=== PATIENT | male | born 1955 | race Caucasian/White ===

== ENCOUNTER 2016-12-14 13:03 | Inpatient (IN) ==
[2016-12-14 13:53] LABS: Bilirubin,Urine Small (Negative); Blood,Urine Negative (Negative); Clarity,Urine Clear (Clear); Color,Urine Dark Yellow (Yellow); Glucose,Urine (UA) Normal (Normal); Ketones,Urine Trace mg/dL (Negative); Leukocyte Esterase,Urine Negative (Negative); Nitrite,Urine Negative (Negative); PH,Urine 6.5 pH Units (5.0-8.0); Protein,Urine 100 mg/dL (Neg-Trace); Urobilinogen,Urine Normal (Normal)
[2016-12-14 13:55] LABS: Hyaline Casts,Urine None Seen per lpf (None-Few); RBC,Urine 0-3 per hpf (0-3); WBC,Urine 0-3 per hpf (0-3)
[2016-12-14 14:06] LABS: Basophils % 0.5 %; Eosinophils # 0.1 K/mcL (0.0-0.6); Eosinophils % 1.5 %; Hematocrit 42.6 % (37.5-50.1); Hemoglobin 12.8 g/dL (12.9-16.9); Immature Granulocytes % 0.5 % (0-4); Lymphocytes # 0.8 K/mcL (0.6-4.6); Lymphocytes % 11.8 %; Mean Corpuscular Hemoglobin 23.8 pg (28.0-33.3); Mean Corpuscular Volume 79.3 fL (83.0-100.0); Mean Platelet Volume 9.9 fL (9.4-12.4); Monocytes # 0.4 K/mcL (0.0-1.3); Monocytes % 6.3 %; Neutrophils # 5.2 K/mcL (1.6-8.9); Platelet Count 171 K/mcL (140-400); Red Blood Count 5.37 M/mcL (4.19-5.50); Red Cell Distribution Width 13.8 % (11.5-14.5); Segmented Neutrophils % 79.4 %
[2016-12-14 14:07] LABS: Squamous Epithelial Cell,Urine Few per lpf (None-Few)
[2016-12-14 14:08] LABS: Bacteria,Urine Few per hpf (None-Few); Mucus,Urine Moderate (Few)
[2016-12-14 14:24] LABS: Alanine Aminotransferase 13 Units/L (0-55); Albumin 3.6 g/dL (3.5-5.0); Albumin/Globulin Ratio 0.9 (1.1-2.2); Alkaline Phosphatase 120 Units/L (38-126); Aspartate Amino Transferase 40 Units/L (5-34); BUN/Creatinine Ratio 15 (6-26); Bilirubin,Direct 0.3 mg/dL (0.0-0.5); Bilirubin,Indirect 0.4 mg/dL (0.0-1.2); Bilirubin,Total 0.7 mg/dL (0.2-1.2); Blood Urea Nitrogen 14 mg/dL (8-26); Calcium 9.4 mg/dL (8.6-10.8); Carbon Dioxide 26 mEq/L (19-29); Chloride 102 mEq/L (98-109); Globulin 3.8 g/dL (2.4-3.5); Glucose 106 mg/dL (70-99); Lipase 17 Units/L (8-78); Osmolality,Calculated 287 (280-300); Sodium 138 mEq/L (136-145); Total Protein 7.4 g/dL (6.0-8.3); eGFR For African Americans > 60 (> 60); eGFR For Non-African Americans > 60 (> 60)
[2016-12-14 14:25] LABS: Potassium 4.1 mEq/L (3.5-4.5)
[2016-12-14] MEDS ORDERED: *HR* HYDROmorphone (PF) 1 MG/ML SYRINGE IVP ONE (14:54)
--- NOTE | 2016-12-14 15:44 | Emergency Department Note ---
Disposition Clinical Impression: Liver metastasis, Lung nodules Abdominal pain Qualifiers: Abdominal location: generalized Qualified Code(s): R10.84 - Generalized abdominal pain Disposition: Admitted As Inpatient Condition: Good Time of Disposition: 18:51 Abdominal Pain HPI - General Chief Complaint: ED Abdominal Pain Stated Complaint: ABD Pain [id number] Time Seen by Provider: 12/14/16 14:03 Source: patient Nursing Notes Reviewed: Yes Vital Signs Reviewed: Yes - History of Present Illness HPI Narrative: 3 1/2 week history of abdominal pain. Increasing abdominal distention. 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 9 years ago. Does have reported nausea no vomiting. Swelling to bilateral lower extremities for the past several weeks. Pain Scale: 5 - Related Data Home Medications Medication Instructions Recorded Confirmed Gabapentin [Neurontin] 600 - 1,200 mg PO TID 08/10/16 12/14/16 Lisinopril [Zestril] 5 mg PO DAILY 08/10/16 12/14/16 Promethazine [Phenergan] 25 mg PO TID PRN 08/10/16 12/14/16 Ferrous Gluconate 324 mg PO DAILY 12/14/16 12/14/16 Oxycodone HCl [Roxicodone 30 MG 30 - 60 mg PO Q4H 12/14/16 12/14/16 Immed Release] Polyethylene Glycol 3350 [MiraLAX] 17 gm PO QPM 12/14/16 12/14/16 Allergies Allergy/AdvReac Type Severity Reaction Status Date / Time morphine Allergy Rash Verified 12/14/16 13:34 All systems ED: reviewed and negative except as stated. Constitutional: Denies: fever, chills ENT ED: Denies: congestion Cardiovascular: Denies: chest pain, palpitations, syncope Respiratory: Denies: cough, dyspnea Gastrointestinal: Reports: abdominal pain, nausea. Denies: vomiting, diarrhea, hematemesis, melena, hematochezia Genitourinary: Denies: urgency, dysuria, frequency Musculoskeletal: Denies: back pain, neck pain Integumentary: Denies: rash, abrasion Neurological: Denies: headache, weakness, numbness Abdominal Pain PMH - Past Medical History Medical history: Reports: hypertension, other Male Surgical History: Reports: no surgical history Psychiatric history: Reports: no psych history - Social History Smoking status: Never smoker Alcohol use: Reports: none Drug use: Reports: none Physical Exam - General Limitations: no limitations General appearance: alert, in no apparent distress - Head Head exam: atraumatic, normocephalic, normal inspection - Eye Eye exam: Present: normal appearance, PERRL, EOMI. Absent: scleral icterus - ENT ENT exam: normal exam, normal oropharynx, mucous membranes moist - Neck Neck exam: Present: normal inspection, full ROM, trachea midline - Chest Chest inspection: Present: normal inspection, symmetric chest wall rise - Respiratory Respiratory exam: Present: normal lung sounds bilaterally. Absent: respiratory distress, accessory muscle use - Cardiovascular Cardiovascular exam: Present: regular rate, normal rhythm, normal heart sounds - Abdominal Exam Abdominal exam: Present: soft, tenderness (Diffusely), distention (Rounded), guarding (Throughout whole exam), rigidity (Mino not scaphoid). Absent: rebound , Mcintyre's sign, Rovsing's sign, tenderness at McBurney's Point - Extremities Exam Extremities exam: Present: pedal edema (Bilaterally pitting.). Absent: normal inspection, full ROM, tenderness, normal capillary refill - Back Exam Back exam: Present: normal inspection, full ROM. Absent: tenderness - Neurological Exam Neurological exam: Present: alert, oriented X3 - Psychiatric Psychiatric exam: Present: normal affect, normal mood - Skin Skin exam: Present: warm, dry, intact, normal color. Absent: rash, cyanosis, diaphoresis, erythema Course Course Narrative: Male patient presenting to the emergency department complaining of a 3-1/2 week history of abdominal pain. Also complaining of distention to his abdomen. This happened previously 9 years ago when he was diagnosed with osteomyelitis. Patient complains of nausea and vomiting associated with this abdominal pain. Denies any chest pain or shortness of breath. Patient's lung sounds are clear heart tones are normal. He does have pitting edema to his bilateral lower extremities. He is well-appearing and nonjaundiced at this time. His abdomen is mildly distended and rounded. It is not scaphoid but it is taut. He is guarding throughout the whole exam. We will get basic lab workup on patient and scanned patient's abdomen. - Reevaluation(s) Reevaluation #1: Patient reassessed and made aware of the possible cancer in his liver and lungs. He has possible metastasis to his liver as well as several lung nodules. He expresses understanding. I discussed with him admission to the hospital for further evaluation of this as well as a CTA of his chest to better assess the lung nodules. He is agreeable with this. We will admit patient to the hospital for further evaluation. Heme/ onc is following. Time: 16:57 - Consultations Consultation #1: Jenna nurse practitioner except the patient in stable condition. She has been made aware that the CTA patient's chest is still pending. Time: 16:56 Consultation #2: I discussed the patient with Heme/ onc. They suggested admission to the hospital for pain control and they will see him while he is here in the hospital. I feel this is reasonable Vital Signs Temperature 98.8 F 12/14/16 13:36 Pulse Rate 88 12/14/16 13:36 Respiratory Rate 18 12/14/16 13:36 Blood Pressure 169/90 12/14/16 13:36 O2 Sat by Pulse Oximetry 98 12/14/16 13:36 Temperature 98.2 F 12/14/16 18:10 Pulse Rate 96 12/14/16 16:39 Respiratory Rate 18 12/14/16 18:10 Blood Pressure 136/80 12/14/16 18:10 O2 Sat by Pulse Oximetry 96 12/14/16 16:39 Oxygen Delivery Oxygen Delivery Room Air Abdominal Pain - Medical Records Medical records reviewed: Yes I reviewed the patient's medical records. - Lab Data Lab results reviewed: Yes I reviewed the patient's lab results. Result diagrams: 12/14/16 14:00 12/14/16 14:00 Lab Results 12/14/16 12/14/16 12/14/16 Range/Units 13:20 14:00 14:00 WBC 6.5 (4.3-11.1) K/mcL RBC 5.37 (4.19-5.50) M/mcL Hgb 12.8 L (12.9-16.9) g/dL Hct 42.6 (37.5-50.1) % MCV 79.3 L (83.0-100.0) fL MCH 23.8 L (28.0-33.3) pg MCHC 30.0 L (31.6-35.5) g/dL RDW 13.8 (11.5-14.5) % Plt Count 171 (140-400) K/mcL MPV 9.9 (9.4-12.4) fL Immature Gran % 0.5 (0-4) % Seg Neutrophils % 79.4 % Lymphocytes % 11.8 % Monocytes % 6.3 % Eosinophils % 1.5 % Basophils % 0.5 % Neutrophils # 5.2 (1.6-8.9) K/mcL Lymphocytes # 0.8 (0.6-4.6) K/mcL Monocytes # 0.4 (0.0-1.3) K/mcL Eosinophils # 0.1 (0.0-0.6) K/mcL Basophils # 0.0 (0.0-0.2) K/mcL Sodium 138 (136-145) mEq/L Potassium 4.1 (3.5-4.5) mEq/L Chloride 102 (98-109) mEq/L Carbon Dioxide 26 (19-29) mEq/L BUN 14 (8-26) mg/dL Creatinine 0.92 (0.72-1.25) mg/dL Est GFR ( Amer) > 60 (> 60) Est GFR (Non-Af Amer) > 60 (> 60) BUN/Creatinine Ratio 15 (6-26) Glucose 106 H (70-99) mg/dL Calculated Osmolality 287 (280-300) Calcium 9.4 (8.6-10.8) mg/dL Total Bilirubin 0.7 (0.2-1.2) mg/dL Direct Bilirubin 0.3 (0.0-0.5) mg/dL Indirect Bilirubin 0.4 (0.0-1.2) mg/dL AST 40 H (5-34) Units/L ALT 13 (0-55) Units/L Alkaline Phosphatase 120 (38-126) Units/L Troponin I (0-0.03) ng/mL B-Natriuretic Peptide (0-100) pg/mL Serum Total Protein 7.4 (6.0-8.3) g/dL Albumin 3.6 (3.5-5.0) g/dL Globulin 3.8 H (2.4-3.5) g/dL Albumin/Globulin Ratio 0.9 L (1.1-2.2) Lipase 17 (8-78) Units/L Urine Color Dark Yellow (Yellow) Urine Clarity Clear (Clear) Urine pH 6.5 (5.0-8.0) pH Units Ur Specific [place] 1.030 H (1.010-1.025) Urine Protein 100 H (Neg-Trace) mg/dL Urine Glucose (UA) Normal (Normal) mg/dL Urine Ketones Trace H (Negative) mg/dL Urine Blood Negative (Negative) Urine Nitrite Negative (Negative) Urine Bilirubin Small H (Negative) Urine Urobilinogen Normal (Normal) mg/dL Ur Leukocyte Esterase Negative (Negative) Urine Microscopic RBC 0-3 (0-3) per hpf Urine Microscopic WBC 0-3 (0-3) per hpf Ur Squamous Epith Cells Few (None-Few) per lpf Urine Bacteria Few (None-Few) per hpf Hyaline Casts None Seen (None-Few) per lpf Urine Mucus Moderate H (Few) Ur Culture Indicated? NO (NO) 12/14/16 12/14/16 Range/Units 14:00 14:00 WBC (4.3-11.1) K/mcL RBC (4.19-5.50) M/mcL Hgb (12.9-16.9) g/dL Hct (37.5-50.1) % MCV (83.0-100.0) fL MCH (28.0-33.3) pg MCHC (31.6-35.5) g/dL RDW (11.5-14.5) % Plt Count (140-400) K/mcL MPV (9.4-12.4) fL Immature Gran % (0-4) % Seg Neutrophils % % Lymphocytes % % Monocytes % % Eosinophils % % Basophils % % Neutrophils # (1.6-8.9) K/mcL Lymphocytes # (0.6-4.6) K/mcL Monocytes # (0.0-1.3) K/mcL Eosinophils # (0.0-0.6) K/mcL Basophils # (0.0-0.2) K/mcL Sodium (136-145) mEq/L Potassium (3.5-4.5) mEq/L Chloride (98-109) mEq/L Carbon Dioxide (19-29) mEq/L BUN (8-26) mg/dL Creatinine (0.72-1.25) mg/dL Est GFR ( Amer) (> 60) Est GFR (Non-Af Amer) (> 60) BUN/Creatinine Ratio (6-26) Glucose (70-99) mg/dL Calculated Osmolality (280-300) Calcium (8.6-10.8) mg/dL Total Bilirubin (0.2-1.2) mg/dL Direct Bilirubin (0.0-0.5) mg/dL Indirect Bilirubin (0.0-1.2) mg/dL AST (5-34) Units/L ALT (0-55) Units/L Alkaline Phosphatase (38-126) Units/L Troponin I 0.00 (0-0.03) ng/mL B-Natriuretic Peptide 72 (0-100) pg/mL Serum Total Protein (6.0-8.3) g/dL Albumin (3.5-5.0) g/dL Globulin (2.4-3.5) g/dL Albumin/Globulin Ratio (1.1-2.2) Lipase (8-78) Units/L Urine Color (Yellow) Urine Clarity (Clear) Urine pH (5.0-8.0) pH Units Ur Specific [place] (1.010-1.025) Urine Protein (Neg-Trace) mg/dL Urine Glucose (UA) (Normal) mg/dL Urine Ketones (Negative) mg/dL Urine Blood (Negative) Urine Nitrite (Negative) Urine Bilirubin (Negative) Urine Urobilinogen (Normal) mg/dL Ur Leukocyte Esterase (Negative) Urine Microscopic RBC (0-3) per hpf Urine Microscopic WBC (0-3) per hpf Ur Squamous Epith Cells (None-Few) per lpf Urine Bacteria (None-Few) per hpf Hyaline Casts (None-Few) per lpf Urine Mucus (Few) Ur Culture Indicated? (NO) - Radiology Data Radiology results reviewed: Yes I reviewed the patient's radiology results. Abdomen/Pelvis CT 12/14/16 14:50 IMPRESSION: 1. Bilateral hepatic mass lesions which are incompletely evaluated on this nonenhanced exam but are most compatible with metastatic lesions. 2. Moderate abdominal ascites with infiltration of the mesentery as well as numerous soft tissue mesenteric implants throughout the abdomen. Findings compatible with peritoneal carcinomatosis. 3. Bilateral subcentimeter indeterminate pulmonary nodules measuring up to 5 mm in the left lower lobe. Recommend close interval follow-up given intra-abdominal findings. D/ / Dick Rivera MD / Dick Rivera MD Interpreting Provider: Dick Rivera MD Lumbar Spine CT 12/14/16 14:50 IMPRESSION: No acute abnormality of the thoracic or lumbar spine. D/ / Salo Lang MD / Salo Lang MD Interpreting Provider: Salo Lang MD Thoracic Spine CT 12/14/16 14:50 IMPRESSION: No acute abnormality of the thoracic or lumbar spine. D/ / Salo Lang MD / Salo Lang MD Interpreting Provider: Salo Lang MD Chest CTA 12/14/16 16:23 IMPRESSION: 1. Several bilateral noncalcified pulmonary nodules, the largest measuring around 5 mm maximally. Follow-up per Fleischner criteria as follows below. 2. No evidence of pulmonary embolic disease. No acute pulmonary findings. Mild emphysematous changes. 3. Re-demonstration of hepatic metastatic disease, upper abdominal ascites and suspected peritoneal carcinomatosis. 4. Right lateral 7th rib lesion concerning for a metastatic deposit. RECOMMENDATIONS: Fleischner Society guidelines for follow-up and management of incidentally detected pulmonary nodules: Multiple Solid Nodules: Nodule size less than 6 mm In a low-risk patient, no routine follow-up. In a high-risk patient, optional CT at 12 months. - Low risk patients include individuals with minimal or absent history of smoking and other known risk factors. - High risk patients include individuals with a history or smoking or known risk factors. Radiology 2017 http://pubs.[facility].org/doi/full/10.1148/[email or web address] D/ / 12/14/2016 18:27:58 Pranay Craig MD / jean Interpreting Provider: Pranay Craig MD - EKG Data EKG attestation: Yes I reviewed and interpreted this EKG. EKG results narrative: Normal sinus rhythm at a rate 88. VA interval is 138. QRS duration is 90. QT is 359. QTC is 44. No signs of acute ischemia. No old EKG to compare to. Attestation Statement - Attestation Attestation: Patient was seen with resident physician. I reviewed the history, physical, assessment and plan, and agree with the findings. I also personally evaluated this patient and had [id number] time with this patient. 60-year-old male presents to the emergency Department chief complaint of abdominal back pain. Patient states symptoms are similar to when he had osteomyelitis diagnosed approximately 9 years ago. He said he had thoracic level osteomyelitis that presented with back pain and abdominal distention and pain which is Madeline's having now. He comes in for evaluation wanting to having his osteo-again and to get treatment for his discomfort. He denies fevers chills nausea vomiting or diarrhea. On exam vital signs are stable. ENT is unremarkable. Heart and lungs are normal. Back is tender to palpation in the mid to lower thoracic area. Lumbar is nontender. Abdomen is distended with positive bowel sounds and there is no appreciable tenderness though there is some mild discomfort. Extremities unremarkable. Neurologically intact. ED course labs were unremarkable. CT scan of the abdomen and pelvis revealed abnormalities in the liver that are consistent with possible metastatic disease.. CT scan of the chest did not reveal acute PE Patient's pain was improved. We discussed case with oncology who suggested admission for further workup. We will admit the patient to the hospital service for further evaluation and treatment. Case was discussed and the hospitalist who agreed to accept the patient. Agree with the resident physician assessment and plan.
--- NOTE | 2016-12-14 19:57 | Internal Med History&Physical ---
<Pranay Siu - Last Filed: 12/14/16 22:15> Date of Encounter: 12/14/16 Time of Encounter: 19:56 Assessment and Plan (1) Lung nodules Current visit: Yes Status: Acute CTA chest reveals several bilateral noncalcified pulmonary nodules, the largest measuring around 5 mm maximally. Mild emphysematous changes. CT brain ordered to r/o brain mets Patient denies ever smoking but reports second hand smoke exposure every two weeks. Hem/onc consulted (2) Liver metastasis Current visit: Yes Status: Acute CT abd/plv reveals hepatic metastatic disease, upper abdominal ascites, and suspected peritoneal carcinomatosis. Right lateral 7th rib lesion concerning for a metastatic deposit. CT brain pending to r/o brain mets Patient has significant adb distension on exam with positive fluid wave. Will order limited U/S abd to quantify amount of ascites. Anticipate therapeutic and diagnostic paracentesis with fluid analysis/ cytology Dilaudid prn pain Hem/onc consulted (3) Chronic thoracic back pain Current visit: Yes Status: Acute Likley viscerosomatic pain from cancer Remote osteomyelitis of the thoracic spine in 2007 Patient on Roxicodone 10mg TID at home CT spine reveals no acute abnormality of the thoracic or lumbar spine. Qualifiers: Back pain laterality: bilateral Qualified Code(s): M54.6 - Pain in thoracic spine; G89.29 - Other chronic pain; G89.29 - Other chronic pain (4) HTN (hypertension) Current visit: Yes Status: Acute Continue home meds Qualifiers: Hypertension type: essential hypertension Qualified Code(s): I10 - Essential (primary) hypertension (5) DVT prophylaxis Current visit: Yes Status: Acute SCDs Avoid Heparin until r/o brain mets Internal Medicine - H&P: HPI Chief complaint: Abd pain Admitted From: Home Plans for Post Hospital Care: Home History of present illness: Mr. Jade is a 60 year old male of hypertension and chronic back pain secondary to remote osteomyelitis of the thoracic spine in 2007 that presented from home c/o generalized abd pain for the past 3 weeks. He reports associated nausea, vomiting, abd distension, back pain, leg edema, fatigue, and 5 weight loss in the past 2 weeks. Abd pain is constant, waxes and wanes in severity up to 9/10 severity, and described as a sharp burning sensation. He reports similar abd distenion and abd pian when he was diagnosed with osteomyelitis of the spine and reports no alleviation in pain despite chronic opiate use for back pain. Of note, patient had a normal echo done on 11/26/16 due to concern for leg edema. Patient denies fever, chills, night sweats, lymphadenopathy, hemoptysis, palpitations, recent illness, diarrhea, constipation, or h/o cancer. He denies ever smoking but reports second hand smoke exposure every two weeks. Past Med Surg Social Fam HX - Past Medical History Medical history: hypertension, other (Chronic back pain) Psychiatric history: no psych history - Past Surgical History Surgical History: no surgical history - Social History Smoking Status: Never smoker Smokeless Tobacco Status: No Alcohol use: none Drug use: none Current living situation: Home, With Family () Activity Level: Independent ambulation Recent Out of Country Travel Within the Last 8 Weeks: No Exposure or Possible Exposure to Illness During Travel: No - Family History Father Hx Family Cardiac Disorders: Yes ([place] at age 52) Mother Hx Family Cardiac Disorders: No Internal Medicine - H&P: Meds Gabapentin [Neurontin] 600 - 1,200 mg PO TID 08/10/16 [History] Promethazine [Phenergan] 25 mg PO TID PRN 08/10/16 [History] RX: Lisinopril [Zestril] 5 mg PO DAILY 08/10/16 [History] Oxycodone HCl [Roxicodone 30 MG Immed Release] 30 - 60 mg PO Q4H 12/14/16 [ History] Polyethylene Glycol 3350 [MiraLAX] 17 gm PO QPM 12/14/16 [History] RX: Ferrous Gluconate 324 mg PO DAILY 12/14/16 [History] 3 Allergy/AdvReac Type Severity Reaction Status Date / Time morphine Allergy Rash Verified 12/14/16 13:34 All Systems PM: A 10-system review of systems was performed and is negative for pertinent findings except as documented above in the HPI. - Constitutional Constitutional: fatigue, weight loss, no anorexia, no chills, no fever(s), no weight gain - EENT Eyes: no change in vision Nose, mouth and throat: no epistaxis, no nasal congestion, no sore throat - Cardiovascular Cardiovascular ROS IM: no chest pain, no diaphoresis, no palpitations - Respiratory Respiratory: no cough, no hemoptysis, no chest congestion - Gastrointestinal Gastrointestinal: abdominal pain, bloating, nausea, vomiting, no diarrhea, no dysphagia, no heartburn, no hematemesis, no melena - Genitourinary Genitourinary ROS male: no dysuria, no urinary frequency, no urinary urgency - Musculoskeletal Musculoskeletal ROS IM: back pain, no neck pain, no numbness, no tingling - Integumentary Integumentary IM: no erythema, no rash, no jaundice - Neurological Neurological ROS: no dizziness, no numbness, no tingling, no weakness - Psychiatric Psychiatric: no anxiety, no depression - Endocrine Endocrine IM: no polydipsia, no polyphagia, no polyuria - Hematologic/Lymphatic Hematologic/Lymphatic: no easy bleeding, no easy bruising, no lymphadenopathy - Constitutional Vitals: Temp Pulse Resp BP Pulse Ox 98.2 F 101 18 172/92 98 12/14/16 19:04 12/14/16 19:04 12/14/16 19:04 12/14/16 19:04 12/14/16 19:04 General appearance: Present: cooperative, mild distress, A&O X 3, pleasant, obese, answers questions appropriately - Head Head exam: Present: atraumatic, normal inspection, normocephalic - Eye Eye exam: Present: EOMI, conjuntiva pink - ENT ENT exam: Present: mucous membranes moist, normal oropharynx - Neck Neck exam general surgery: Present: normal inspection. Absent: lymphadenopathy , tenderness, supple - Respiratory Respiratory exam: Present: CTAB. Absent: wheezes - Cardiovascular Cardiovascular exam: Present: RRR, +S1, +S2 - GI/Abdominal GI/Abdominal exam: Present: distended (+ fluid wave, tympanic to percussion), firm, normal bowel sounds, tenderness (diffuse). Absent: guarding, soft - Extremities Exam Extremities exam: Present: full ROM, normal capillary refill, pedal edema (2+), warm - Back Exam Back exam: Present: paraspinal tenderness (T-spine), tenderness - Neurological Exam Neurological exam: Present: alert, oriented X3, no focal deficits, strengths equal and symetr throughout. Absent: altered, speech deficit - Psychiatric Psychiatric exam: Present: normal affect, normal mood - Skin Skin exam: Present: dry, normal color, warm Internal Med - H&P Results - Labs CBC & Chem 7: 12/14/16 14:00 12/14/16 14:00 - EKG Data -: EKG Interpreted by Myself EKG shows normal: sinus rhythm (Normal sinus rhythm at a rate 88. ID interval is 138. QRS duration is 90. QT is 359. QTC is 44. No signs of acute ischemia. ) - Impressions ITS Impressions Abdomen/Pelvis CT 12/14/16 14:50 IMPRESSION: 1. Bilateral hepatic mass lesions which are incompletely evaluated on this nonenhanced exam but are most compatible with metastatic lesions. 2. Moderate abdominal ascites with infiltration of the mesentery as well as numerous soft tissue mesenteric implants throughout the abdomen. Findings compatible with peritoneal carcinomatosis. 3. Bilateral subcentimeter indeterminate pulmonary nodules measuring up to 5 mm in the left lower lobe. Recommend close interval follow-up given intra-abdominal findings. D/ / Dick Rivera MD / Dick Rivera MD Interpreting Provider: Dick Rivera MD Lumbar Spine CT 12/14/16 14:50 IMPRESSION: No acute abnormality of the thoracic or lumbar spine. D/ / Salo Lang MD / Salo Lang MD Interpreting Provider: Salo Lang MD Thoracic Spine CT 12/14/16 14:50 IMPRESSION: No acute abnormality of the thoracic or lumbar spine. D/ / Salo Lang MD / Salo Lang MD Interpreting Provider: aSlo Lang MD Chest CTA 12/14/16 16:23 IMPRESSION: 1. Several bilateral noncalcified pulmonary nodules, the largest measuring around 5 mm maximally. Follow-up per Fleischner criteria as follows below. 2. No evidence of pulmonary embolic disease. No acute pulmonary findings. Mild emphysematous changes. 3. Re-demonstration of hepatic metastatic disease, upper abdominal ascites and suspected peritoneal carcinomatosis. 4. Right lateral 7th rib lesion concerning for a metastatic deposit. RECOMMENDATIONS: Fleischner Society guidelines for follow-up and management of incidentally detected pulmonary nodules: Multiple Solid Nodules: Nodule size less than 6 mm In a low-risk patient, no routine follow-up. In a high-risk patient, optional CT at 12 months. - Low risk patients include individuals with minimal or absent history of smoking and other known risk factors. - High risk patients include individuals with a history or smoking or known risk factors. Radiology 2017 http://pubs.rsna.org/doi/full/10.1148/radiol.[email or web address] D/ / 12/14/2016 18:27:58 Pranay Craig MD / jean Interpreting Provider: Pranay Craig MD <Jayson Nieves - Last Filed: 12/14/16 23:18> Date of Encounter: 12/14/16 Internal Medicine - H&P: HPI History of present illness: Mr. Jade is a 60 year old male All Systems PM: A 10-system review of systems was performed and is negative for pertinent findings except as documented above in the HPI. - Constitutional Vitals: Temp Pulse Resp BP Pulse Ox 98.2 F 101 18 172/92 98 12/14/16 19:04 12/14/16 19:04 12/14/16 19:04 12/14/16 19:04 12/14/16 19:04 Internal Med - H&P Results - Labs CBC & Chem 7: 12/14/16 14:00 12/14/16 14:00 - Attending Attestation I examined this patient and my medical decision-making was reviewed with the Resident Physician. I agree with the documented findings, disposition and treatment plan as described except to the extent set forth below. Patient is a 60-year-old male with past medical history of hypertension, chronic back pain and history of the ostium myelitis of the thoracic spine. He presents to the ED with complaints of abdominal pain which has been worsening over the past 3 weeks. He also has associated nausea and vomiting and abdominal distention. He has also had weight loss. He denies any other acute complaints. CT of the abdomen and pelvis reveals bilateral hepatic mass lesions and moderate abdominal ascites and numerous soft tissue mesenteric implants throughout the abdomen. CTA chest reveals severe bilateral noncalcified pulmonary nodules and emphysematous changes and hepatic metastatic disease. Right lateral seventh rib lesion concerning for metastatic deposit. Oncology consult is pending. Patient may need paracentesis for abdominal pain and distention. Guarded condition and guarded prognosis. Heart rate 101, blood pressure 172/92, O2 sat 98% on room air. Heart S1-S2 positive. Lungs bilateral air entry. Abdomen distended, nontender, seems firm , ascites present. Extremities bilateral lower leg 2+ edema.
[2016-12-14] MEDS ORDERED: Naloxone 0.4 MG/ML INJ IVP PRN (21:04)
[2016-12-14] MEDS ORDERED: *HR* HYDROmorphone (PF) 1 MG/ML SYRINGE IVP PRN (21:04)
--- NOTE | 2016-12-14 21:14 | Electrocardiograph Report ---
Leslie Souche Test Date: 2016-12-14 Pat Name: Almas Jade Department: [id number] Room: 2A34 Gender: M Claims Counsel: VL : 1955 Requested By: Chidi Shaffer Order Number: [id number] Reading MD: Abdullahi Brown MD Measurements Intervals [place] Rate: 88 P: 20 IL: 138 QRS: -6 QRSD: 90 T: -10 QT: 359 QTc: 404 Interpretive Statements SINUS RHYTHM MODERATE VOLTAGE CRITERIA FOR LVH, CONSIDER NORMAL VARIANT Electronically Signed On 12-14-2016 21:12:32 EDT by Abdullahi Brown MD
[2016-12-14 23:33] LABS: INR 1.2; Prothrombin Time 13.2 Seconds (9.4-12.1)
[2016-12-14 23:36] LABS: Activated Partial Thrombo Time 29.3 Seconds (26.0-36.0)
[2016-12-14] MEDS: Ondansetron 4 MG/2 ML VIAL IVP PRN (23:40)
[2016-12-14] MEDS: *HR* OxyCODONE Immed Rel 5 MG TABLET PO PRN (23:40)
[2016-12-15] MEDS: *HR* HYDROmorphone (PF) 1 MG/ML SYRINGE IVP PRN ×6 (00:58→23:46)
[2016-12-15] MEDS: *HR* OxyCODONE Immed Rel 5 MG TABLET PO PRN ×2 (03:37→08:08)
[2016-12-15 05:21] LABS: Basophils % 0.3 %; Eosinophils # 0.1 K/mcL (0.0-0.6); Eosinophils % 2.2 %; Hematocrit 35.3 % (37.5-50.1); Immature Granulocytes % 0.5 % (0-4); Lymphocytes # 0.5 K/mcL (0.6-4.6); Lymphocytes % 12.7 %; Mean Corpuscular HGB Conc 30.6 g/dL (31.6-35.5); Mean Corpuscular Hemoglobin 24.5 pg (28.0-33.3); Mean Corpuscular Volume 80.2 fL (83.0-100.0); Mean Platelet Volume 10.5 fL (9.4-12.4); Monocytes # 0.3 K/mcL (0.0-1.3); Monocytes % 8.6 %; Neutrophils # 2.8 K/mcL (1.6-8.9); Platelet Count 128 K/mcL (140-400); Red Cell Distribution Width 13.7 % (11.5-14.5); Segmented Neutrophils % 75.7 %
[2016-12-15 05:33] LABS: Hemoglobin 10.8 g/dL (12.9-16.9)
[2016-12-15 05:58] LABS: Alanine Aminotransferase 12 Units/L (0-55); Albumin 3.1 g/dL (3.5-5.0); Albumin/Globulin Ratio 1.1 (1.1-2.2); Alkaline Phosphatase 98 Units/L (38-126); Aspartate Amino Transferase 33 Units/L (5-34); BUN/Creatinine Ratio 15 (6-26); Bilirubin,Total 0.5 mg/dL (0.2-1.2); Blood Urea Nitrogen 13 mg/dL (8-26); Calcium 8.7 mg/dL (8.6-10.8); Carbon Dioxide 28 mEq/L (19-29); Chloride 103 mEq/L (98-109); Globulin 2.9 g/dL (2.4-3.5); Glucose 95 mg/dL (70-99); Osmolality,Calculated 288 (280-300); Potassium 3.8 mEq/L (3.5-4.5); Sodium 139 mEq/L (136-145); eGFR For African Americans > 60 (> 60); eGFR For Non-African Americans > 60 (> 60)
[2016-12-15] MEDS ORDERED: Famotidine 20 MG/2 ML VIAL IVP SCH (06:00)
[2016-12-15] MEDS: Gabapentin 300 MG CAPSULE PO SCH ×3 (08:08→20:33)
[2016-12-15] MEDS: Ondansetron 4 MG/2 ML VIAL IVP PRN (08:15)
[2016-12-15] MEDS: *HR* OxyCODONE ER (12 HR) 20 MG TABLET PO SCH ×2 (12:08→23:46)
[2016-12-15] MEDS: *HR* Promethazine 25 MG/ML VIAL IVP PRN (12:39)
--- NOTE | 2016-12-15 14:33 | Oncology Inp Consult Note ---
<Bonny Grant - Last Filed: 12/15/16 14:30> Date of Encounter: 12/15/16 Time of Encounter: 14:00 Assessment and Plan (1) Liver mass Status: Acute Assessment and plan: - CT A/P showed bilateral hepatic mass lesions with eccentric distribution concerning of metastases from colon cancer. - Will check CEA and CA 19-9. - IR consulted for liver biopsy. - Also recommend colonoscopy. - Case was reviewed and discussed with Dr. Howe. The plan is also discussed with hospitalist Dr. Guajardo. (2) Ascites Status: Acute Assessment and plan: - CT A/P found moderate abdominal ascites with infiltration of the mesentery as well as numerous soft tissue mesenteric implants throughout the abdomen. Findings compatible with peritoneal carcinomatosis. - Patient may benefit from diagnostic & therapeutic paracentesis given the ascites likely contributes to his current abdominal pain. Will also order peritoneal fluid analysis including cell count and cytology. Qualifiers: Ascites type: malignant Qualified Code(s): R18.0 - Malignant ascites (3) Lung nodules Status: Acute Assessment and plan: - Bilateral subcentimeter pulmonary nodules, with the largest measuring around 5 mm, per CTA chest. - Consider outpatient PET as further work-up. - Data of Consult Patient: new to practice Consult date: 12/15/16 Requesting Physician: Debora Guajardo MD Primary Care Provider: Chandler Clark - Consult Narrative Reason for consult: Multiple liver lesions concerning of malignancy History of present illness: Mr. Jade is a 60 year old male with PMH of HTN, chronic back pain with history of T8 osteomyelitis and S. aureus endocarditis. Patient presented to [facility] ED with complaint of 3 & 1/2-week history of diffuse abdominal pain. CT A/ P found multiple liver lesions and moderate ascites with findings compatible with peritoneal carcinomatosis. Patient was admitted on 12/14/16 and [facility] oncology was consulted for the concern of malignancy. On the encounter this afternoon, patient still has diffuse abdominal pain which he described as constant pressure-like, sharp and burning pain. No alleviating or aggravating factor noted. It's associated with nausea, vomiting, chills, bilateral lower extremity edema and 5-lb weight loss over past 3 & 1/2 weeks. Patient denies night sweating, hematochezia, melena. Patient reports his last colonoscopy was long time, likely more than 10 years ago. Patient denies known liver problem such as hepatitis. Patient denies tobacco, alcohol or illicit drug use. Patient denies known personal history of cancer but does have one brother and two sisters with lung cancers, which he thinks it's because they all are smoker. Past Med Surg Social Fam HX - Past Medical History Medical history: hypertension, other (Chronic back pain) Psychiatric history: no psych history - Past Surgical History Surgical History: no surgical history - Social History Smoking Status: Never smoker Smokeless Tobacco Status: No Alcohol use: none Drug use: none - Family History Father Hx Family Cardiac Disorders: Yes (SD at age 52) Mother Hx Family Cardiac Disorders: No Brother Hx Family Cancer: Yes (Lung cancer) Sister Hx Family Cancer: Yes (Lung cancer) Medications and Allergies Gabapentin [Neurontin] 600 - 1,200 mg PO TID 08/10/16 [History] Lisinopril [Zestril] 5 mg PO DAILY 08/10/16 [History] Promethazine [Phenergan] 25 mg PO TID PRN 08/10/16 [History] Ferrous Gluconate 324 mg PO DAILY 12/14/16 [History] Oxycodone HCl [Roxicodone 30 MG Immed Release] 30 - 60 mg PO Q4H 12/14/16 [ History] Polyethylene Glycol 3350 [MiraLAX] 17 gm PO QPM 12/14/16 [History] 3 Allergy/AdvReac Type Severity Reaction Status Date / Time morphine Allergy Rash Verified 12/14/16 13:34 Constitutional: Present: anorexia, chills, fatigue, weight loss. Absent: excessive sweating, fever(s), night sweats Eyes: Absent: change in vision Ears: Absent: decreased hearing Nose, mouth and throat: Absent: dysphagia Cardiovascular: Present: edema (Bilateral lower extremities). Absent: chest pain Respiratory: Absent: cough, dyspnea, hemoptysis Gastrointestinal: Present: as per HPI Neurological: Absent: focal weakness, numbness, tingling Hematologic/Lymphatic: Absent: easy bleeding, easy bruising, lymphadenopathy Oncology - Exam - Constitutional Vitals: Temp Pulse Resp BP Pulse Ox 98.3 F 76 12 143/84 96 12/15/16 11:32 12/15/16 11:32 12/15/16 11:32 12/15/16 11:32 12/15/16 11:32 - Head Head exam: Present: atraumatic, normocephalic - Eye Eye exam: Present: EOMI, PERRL, sclera anicteric - ENT ENT exam: Present: mucous membranes dry - Neck Neck exam: Present: normal inspection - Respiratory Respiratory exam: Present: CTAB. Absent: rales, rhonchi, wheezes - Cardiovascular Cardiovascular exam: Present: RRR, +S1, +S2 - GI/Abdominal GI/Abdominal exam: Present: distended (with positive wave), normal bowel sounds , tenderness (Diffuse) - Extremities Exam Extremities exam: Present: pedal edema (Bilateral lower extremities pitting edema) - Back Exam Back exam: Present: vertebral tenderness (mid thoracic spine area likely around T8) - Neurological Exam Neurological exam: Present: alert, oriented X3, no focal deficits - Skin Skin exam: Present: intact, normal color, warm Oncology - Results Labs: Short CBC 12/15/16 Range/Units 04:36 WBC 3.7 L (4.3-11.1) K/mcL Hgb 10.8 L D (12.9-16.9) g/dL Hct 35.3 L (37.5-50.1) % Plt Count 128 L (140-400) K/mcL Neutrophils # 2.8 (1.6-8.9) K/mcL BMP 12/15/16 04:36 Sodium 139 Potassium 3.8 Chloride 103 Carbon Dioxide 28 BUN 13 Creatinine 0.84 Glucose 95 Calcium 8.7 Liver Function 12/15/16 Range/Units 04:36 Total Bilirubin 0.5 (0.2-1.2) mg/dL AST 33 (5-34) Units/L ALT 12 (0-55) Units/L Alkaline Phosphatase 98 (38-126) Units/L Albumin 3.1 L (3.5-5.0) g/dL Consult Discharge Plan - Plan Instructions: [facility] Catheter Placement and Care (DC) Referrals: Chandler Clark MD [Primary Care Provider] - 12/23/16 2:30 pm <Raleigh Howe - Last Filed: 12/16/16 08:38> Date of Encounter: 12/16/16 - Data of Consult Requesting Physician: Debora Guajardo MD Primary Care Provider: Chandler Clark - Consult Narrative History of present illness: Mr. Jade is a 60 year old male Oncology - Exam - Constitutional Vitals: Temp Pulse Resp BP Pulse Ox 97.9 F 85 15 139/88 97 12/16/16 07:08 12/16/16 07:08 12/16/16 07:08 12/16/16 07:08 12/16/16 07:08 Oncology - Results Labs: Short CBC 12/16/16 Range/Units 04:40 WBC 4.2 L (4.3-11.1) K/mcL Hgb 11.6 L (12.9-16.9) g/dL Hct 38.1 (37.5-50.1) % Plt Count 125 L (140-400) K/mcL Neutrophils # 3.4 (1.6-8.9) K/mcL BMP 12/16/16 04:40 Sodium 137 Potassium 3.9 Chloride 103 Carbon Dioxide 28 BUN 12 Creatinine 0.80 Glucose 99 Calcium 8.6 - Attending Attestation I examined this patient and my medical decision-making was reviewed with the Advanced Practice Nurse. I agree with the documented findings, disposition and treatment plan as described except to the extent set forth below. 1. Suspected metastatic carcinoma. Primary to be determined Admitted with 3-4 week history of abdominal distention and pain mainly right lower quadrant. CAT scan abdomen without contrast showed multiple liver lesions largest about 3 cm. Also multiple peritoneal deposit surrounding the colon suspicious for peritoneal carcinomatosis. Proceed with CT-guided liver biopsy of the liver lesion CT angiogram chest showed subcentimeter nodules largest 5 INR is acceptable at 1.2 CEA low at 1.2. CA 19-9 pending 2. Abdominal pain and distention. Ultrasound and CAT scan showed fluid around the liver and some in the right paracolic gutter. Possible attempt ultrasound- guided paracentesis to relieve pain and distention For better pain control at Dilaudid 1 mg IV every 2 hours when necessary showed
[2016-12-15] MEDS: *HR* OxyCODONE Immed Rel 15 MG TABLET PO PRN (15:02)
--- NOTE | 2016-12-15 16:27 | Internal Med Progress Note ---
Date of Encounter: 12/15/16 Time of Encounter: 16:25 - Assessment and plan (1) Ascites Current Visit: Yes Status: Acute Assessment and plan: IR consulted for paracentesis (diagnosis and therapeutic) continue supportive care will f/u peritoneal fluid serologies Qualifiers: Ascites type: malignant Qualified Code(s): R18.0 - Malignant ascites (2) Lung nodules Current Visit: Yes Status: Acute Assessment and plan: Oncology evaluation appreciated pt to undergo liver biopsy in am by IR f/u CT head continue supportive care (3) Liver metastasis Current Visit: Yes Status: Acute Assessment and plan: plan as listed above pain control (4) HTN (hypertension) Current Visit: Yes Status: Acute Assessment and plan: BP within acceptable range continue home meds Qualifiers: Hypertension type: essential hypertension Qualified Code(s): I10 - Essential (primary) hypertension (5) DVT prophylaxis Current Visit: Yes Status: Acute Assessment and plan: SCD (6) Chronic thoracic back pain Current Visit: Yes Status: Acute Assessment and plan: Likely viscerosomatic pain from cancer Remote osteomyelitis of the thoracic spine in 2007 Continue home meds added Oxycontin BID in addition to breakthrough pain medications Qualifiers: Back pain laterality: bilateral Qualified Code(s): M54.6 - Pain in thoracic spine; G89.29 - Other chronic pain; G89.29 - Other chronic pain - Subjective Interval history: Patient seen and examined with family present at bedside. Reports of severe abd pain. Noted to have distended abd with ascites and positive fluid wave. - Constitutional Vitals: Temp Pulse Resp BP Pulse Ox 98.4 F 72 14 120/69 97 12/15/16 16:12 12/15/16 16:12 12/15/16 16:12 12/15/16 16:12 12/15/16 16:12 General appearance: Present: cooperative, mild distress (abd pain), A&O X 3, pleasant, obese, answers questions appropriately - Head Head exam: Present: atraumatic, normocephalic - Eye Eye exam: Present: conjuntiva pink, sclera anicteric - Respiratory Respiratory exam: Present: CTAB. Absent: respiratory distress, wheezes - Cardiovascular Cardiovascular exam: Present: RRR, +S1, +S2. Absent: diastolic murmur, gallop, rubs, systolic murmur - GI/Abdominal GI/Abdominal exam: Present: distended, firm (positive fluid wave), normal bowel sounds, tenderness (diffuse tenderness) - Extremities Exam Extremities exam: Present: full ROM, pedal edema, warm, radial pulses palpable and symmetrical. Absent: calf tenderness - Neurological Exam Neurological exam: Present: alert, oriented X3 Internal Medicine: Result - Labs CBC & Chem 7: 12/15/16 04:36 12/15/16 04:36 Labs: Short CBC 12/15/16 Range/Units 04:36 WBC 3.7 L (4.3-11.1) K/mcL Hgb 10.8 L D (12.9-16.9) g/dL Hct 35.3 L (37.5-50.1) % Plt Count 128 L (140-400) K/mcL Neutrophils # 2.8 (1.6-8.9) K/mcL BMP 12/15/16 04:36 Sodium 139 Potassium 3.8 Chloride 103 Carbon Dioxide 28 BUN 13 Creatinine 0.84 Glucose 95 Calcium 8.7 Liver Function 12/15/16 Range/Units 04:36 Total Bilirubin 0.5 (0.2-1.2) mg/dL AST 33 (5-34) Units/L ALT 12 (0-55) Units/L Alkaline Phosphatase 98 (38-126) Units/L Albumin 3.1 L (3.5-5.0) g/dL - ABG Interpretation ABG results: PT/INR, D-dimer PT 13.2 Seconds (9.4-12.1) H 12/14/16 23:20 - Impressions Impressions Abdomen Ultrasound 12/14/16 22:51 IMPRESSION: Mild to moderate ascites. D/ / Luigi Leroy MD / Luigi Leroy MD Interpreting Provider: Luigi Leroy MD Consult Discharge Plan - Plan Instructions: [facility] Catheter Placement and Care (DC) Referrals: Chandler Clark MD [Primary Care Provider] - 12/23/16 2:30 pm
[2016-12-15] MEDS: Famotidine 20 MG TABLET PO SCH (17:42)
[2016-12-15] MEDS ORDERED: Temazepam 15 MG CAPSULE PO ONE (19:49)
[2016-12-16] MEDS: *HR* HYDROmorphone (PF) 1 MG/ML SYRINGE IVP PRN ×6 (03:24→23:47)
[2016-12-16] MEDS: *HR* OxyCODONE Immed Rel 15 MG TABLET PO PRN ×3 (03:24→15:32)
[2016-12-16 05:51] LABS: Basophils % 0.2 %; Eosinophils # 0.1 K/mcL (0.0-0.6); Eosinophils % 1.4 %; Hematocrit 38.1 % (37.5-50.1); Hemoglobin 11.6 g/dL (12.9-16.9); Immature Granulocytes % 0.5 % (0-4); Lymphocytes # 0.4 K/mcL (0.6-4.6); Lymphocytes % 8.4 %; Mean Corpuscular HGB Conc 30.4 g/dL (31.6-35.5); Mean Corpuscular Hemoglobin 24.4 pg (28.0-33.3); Monocytes # 0.3 K/mcL (0.0-1.3); Monocytes % 7.4 %; Neutrophils # 3.4 K/mcL (1.6-8.9); Platelet Count 125 K/mcL (140-400); Red Blood Count 4.76 M/mcL (4.19-5.50); Red Cell Distribution Width 13.8 % (11.5-14.5); Segmented Neutrophils % 82.1 %
[2016-12-16 06:07] LABS: BUN/Creatinine Ratio 15 (6-26); Blood Urea Nitrogen 12 mg/dL (8-26); Calcium 8.6 mg/dL (8.6-10.8); Carbon Dioxide 28 mEq/L (19-29); Chloride 103 mEq/L (98-109); Glucose 99 mg/dL (70-99); Magnesium 1.7 mg/dL (1.6-2.6); Osmolality,Calculated 284 (280-300); Phosphorous 2.6 mg/dL (2.3-4.7); Potassium 3.9 mEq/L (3.5-4.5); Sodium 137 mEq/L (136-145); eGFR For African Americans > 60 (> 60); eGFR For Non-African Americans > 60 (> 60)
[2016-12-16] MEDS: Gabapentin 300 MG CAPSULE PO SCH ×3 (07:44→20:39)
[2016-12-16] MEDS: Famotidine 20 MG TABLET PO SCH ×2 (07:44→16:08)
[2016-12-16] MEDS ORDERED: *HR* HYDROmorphone (PF) 1 MG/ML SYRINGE IVP PRN (10:55)
[2016-12-16] MEDS: *HR* OxyCODONE ER (12 HR) 20 MG TABLET PO SCH ×2 (11:55→23:41)
[2016-12-16 13:11] LABS: LDH,Peritoneal Fluid 106 Units/L (No Ref Range)
[2016-12-16 13:13] LABS: RBC,Peritoneal Fluid 0.003 M/mcL; Total Protein,Peritoneal Fluid 3.4 g/dL (No Ref Range)
--- NOTE | 2016-12-16 13:48 | Event Note ---
Date of Encounter: 12/16/16 Time of Encounter: 13:45 I received a call from Dr Jim in IR. Decision made to do paracentesis only today, and defer liver biopsy until tomorrow or the next day. We were concerned with possible complications of two concurrent procedures. Patient extremely uncomfortable due to ascites, so decision was made to do paracentesis first. Oncology GI nurse navigator and Dr Howe to stop by and update patient today.
[2016-12-16 14:04] LABS: Hepatitis A Antibody IgM Nonreactive (Nonreactive); Hepatitis B Core IgM Nonreactive (Nonreactive); Hepatitis B Surface Antigen Nonreactive (Nonreactive); Hepatitis C Virus Antibody Nonreactive (Nonreactive)
--- NOTE | 2016-12-16 14:31 | Internal Med Progress Note ---
Date of Encounter: 12/16/16 Time of Encounter: 14:25 - Assessment and plan (1) Ascites Current Visit: Yes Status: Acute Assessment and plan: IR consulted for paracentesis (diagnosis and therapeutic) s/p paracentesis (12/16/16), removed 3.7L straw colored ascitic fluid Peritoneal fluid concerning for SBP, will start Cefotaxime 2gm IV q8h continue supportive care pain control Qualifiers: Ascites type: malignant Qualified Code(s): R18.0 - Malignant ascites (2) SBP (spontaneous bacterial peritonitis) Current Visit: Yes Status: Acute Assessment and plan: as listed above (3) Lung nodules Current Visit: Yes Status: Acute Assessment and plan: Oncology evaluation appreciated f/u CT head continue supportive care awaiting liver biopsy (4) Liver metastasis Current Visit: Yes Status: Acute Assessment and plan: plan as listed above pain control (5) HTN (hypertension) Current Visit: Yes Status: Acute Assessment and plan: BP within acceptable range continue home meds Qualifiers: Hypertension type: essential hypertension Qualified Code(s): I10 - Essential (primary) hypertension (6) DVT prophylaxis Current Visit: Yes Status: Acute Assessment and plan: SCD (7) Chronic thoracic back pain Current Visit: Yes Status: Acute Assessment and plan: Likely viscerosomatic pain from cancer Remote osteomyelitis of the thoracic spine in 2007 Continue home meds Oxycontin BID in addition to breakthrough pain medications Qualifiers: Back pain laterality: bilateral Qualified Code(s): M54.6 - Pain in thoracic spine; G89.29 - Other chronic pain; G89.29 - Other chronic pain - Subjective Interval history: Patient seen and examined with family present at bedside. s/p paracentesis (12/16), reports of pain being better controlled with dilaudid and after paracentesis. Peritoneal fluid concerning for SBP, will start on Cefotaxime. Liver biopsy on hold today due to paracentesis performed by IR. Oncology on board - Constitutional Vitals: Temp Pulse Resp BP Pulse Ox 97.8 F 82 18 133/80 97 12/16/16 11:32 12/16/16 11:32 12/16/16 11:32 12/16/16 11:32 12/16/16 11:32 General appearance: Present: cooperative, A&O X 3, pleasant, no acute distress, obese, answers questions appropriately - Head Head exam: Present: atraumatic, normocephalic - Eye Eye exam: Present: conjuntiva pink, sclera anicteric - Respiratory Respiratory exam: Present: CTAB. Absent: respiratory distress, wheezes - Cardiovascular Cardiovascular exam: Present: RRR, +S1, +S2. Absent: diastolic murmur, gallop, rubs, systolic murmur - GI/Abdominal GI/Abdominal exam: Present: distended (ascites), normal bowel sounds, soft. Absent: tenderness - Extremities Exam Extremities exam: Present: full ROM, warm, radial pulses palpable and symmetrical. Absent: calf tenderness - Neurological Exam Neurological exam: Present: alert, oriented X3 - Psychiatric Psychiatric exam: Present: normal affect, normal mood Internal Medicine: Result - Labs CBC & Chem 7: 12/16/16 04:40 12/16/16 04:40 Labs: Short CBC 12/16/16 Range/Units 04:40 WBC 4.2 L (4.3-11.1) K/mcL Hgb 11.6 L (12.9-16.9) g/dL Hct 38.1 (37.5-50.1) % Plt Count 125 L (140-400) K/mcL Neutrophils # 3.4 (1.6-8.9) K/mcL BMP 12/16/16 04:40 Sodium 137 Potassium 3.9 Chloride 103 Carbon Dioxide 28 BUN 12 Creatinine 0.80 Glucose 99 Calcium 8.6 - ABG Interpretation ABG results: PT/INR, D-dimer PT 13.2 Seconds (9.4-12.1) H 12/14/16 23:20 - Impressions Impressions Paracentesis Ultrasound 12/16/16 00:00 IMPRESSION: Successful ultrasound guided paracentesis. D/ / Dick Jim MD / Dick Jim MD Interpreting Provider: Dick Jim MD Consult Discharge Plan - Plan Instructions: [facility] Placement and Care (DC) Referrals: Chandler Clark MD [Primary Care Provider] - 12/23/16 2:30 pm
[2016-12-16 15:05] LABS: Appearance of Peritoneal Fl CLEAR (Clear)
[2016-12-16] MEDS: Cefotaxime 2,000 MG in D5% in Water 100 ML IVPB SCH ×2 (15:33→23:41)
[2016-12-17] MEDS: *HR* OxyCODONE Immed Rel 15 MG TABLET PO PRN ×3 (01:53→20:01)
[2016-12-17] MEDS: *HR* HYDROmorphone (PF) 1 MG/ML SYRINGE IVP PRN ×6 (05:05→22:39)
[2016-12-17 05:38] LABS: Basophils % 0.5 %; Eosinophils # 0.1 K/mcL (0.0-0.6); Eosinophils % 2.8 %; Hemoglobin 11.8 g/dL (12.9-16.9); Immature Granulocytes % 0.5 % (0-4); Lymphocytes # 0.5 K/mcL (0.6-4.6); Lymphocytes % 10.8 %; Mean Corpuscular HGB Conc 30.3 g/dL (31.6-35.5); Mean Corpuscular Volume 79.3 fL (83.0-100.0); Mean Platelet Volume 10.3 fL (9.4-12.4); Monocytes # 0.4 K/mcL (0.0-1.3); Monocytes % 8.9 %; Neutrophils # 3.3 K/mcL (1.6-8.9); Platelet Count 136 K/mcL (140-400); Red Blood Count 4.92 M/mcL (4.19-5.50); Red Cell Distribution Width 13.8 % (11.5-14.5); Segmented Neutrophils % 76.5 %
[2016-12-17 05:54] LABS: BUN/Creatinine Ratio 18 (6-26); Blood Urea Nitrogen 15 mg/dL (8-26); Calcium 8.5 mg/dL (8.6-10.8); Carbon Dioxide 27 mEq/L (19-29); Chloride 104 mEq/L (98-109); Glucose 92 mg/dL (70-99); Magnesium 1.8 mg/dL (1.6-2.6); Osmolality,Calculated 282 (280-300); Phosphorous 2.3 mg/dL (2.3-4.7); Sodium 136 mEq/L (136-145); eGFR For African Americans > 60 (> 60); eGFR For Non-African Americans > 60 (> 60)
[2016-12-17] MEDS: Gabapentin 300 MG CAPSULE PO SCH ×3 (07:41→22:04)
[2016-12-17] MEDS: Famotidine 20 MG TABLET PO SCH ×2 (07:42→15:53)
[2016-12-17] MEDS: Cefotaxime 2,000 MG in D5% in Water 100 ML IVPB SCH ×3 (07:42→22:04)
--- NOTE | 2016-12-17 08:35 | Oncology Inp Progress Note ---
Date of Encounter: 12/17/16 Time of Encounter: 18:00 (1) Liver metastasis Current Visit: Yes Status: Acute Assessment and plan: Multiple liver lesions concerning for metastasis. A site is 3.7 L HEENT 2016. Cytology pending Also multiple peritoneal deposits Discussed at thoracic tumor Board were 2016. Liver biopsy may be risky given the site is better biopsy of peritoneal deposit is possible and proceed with that (2) Ascites Current Visit: Yes Status: Acute Assessment and plan: 3.7 L fluid drained and is abdominal distention and pain have improved Qualifiers: Ascites type: malignant Qualified Code(s): R18.0 - Malignant ascites (3) Anemia Current Visit: Yes Status: Acute Assessment and plan: Microcytic anemia hemoglobin 10.8 MCV 79. On July 2016 hemoglobin normal at 13 but MCV still low at 79. We will do anemia workup. Colonoscopy if necessary CEA normal at 1.9. CA 19 9 pending Qualifiers: Qualified Code(s): D50.0 - Iron deficiency anemia secondary to blood loss ( chronic) Oncology: Subj Interval history: Abdominal distention much better after paracentesis 3.7 L. Fluid sent for cytology. Currently on Dilaudid 1 mg every 3 hours. He is not requiring as much since paracentesis - Constitutional Vitals: Vital Signs Temp Pulse Resp BP Pulse Ox 12/17/16 06:52 97.9 F 76 17 125/81 98 12/17/16 03:23 97.8 F 73 18 132/85 97 12/16/16 23:16 97.5 F L 78 18 119/71 98 12/16/16 20:40 96 12/16/16 18:27 98.9 F 81 18 110/65 96 12/16/16 16:02 98.4 F 83 16 117/71 97 12/16/16 11:32 97.8 F 82 18 133/80 97 Intake and Output 12/16/16 12/17/16 12/17/16 23:59 07:59 15:59 Intake Total 100 / 100 100 / 100 Output Total 0 / 0 Balance 100 / 100 100 / 100 Intake: IV Fluids 100 / 100 100 / 100 [place]for[place] 2,000 MG In Dextrose 5 100 / 100 100 / 100 % 100 ML @ 200 mls/hr IVPB Q8H [facility] Rx#:[id number] Oral 0 / 0 0 / 0 Output: Urine 0 / 0 Other: Meal Dinner Percent of Meal Consumed 0% Weight 99.019 kg Patient Weight 12/17/16 23:59 Weight 99.019 kg Exam: GENERAL: Alert and oriented, well appearing. Mental Status: Affect appropriate for circumstances HEENT: Sclerae anicteric. No mucositis or thrush. No other oral or pharyngeal lesions or erythema. Skin: No rashes or petechiae. No evidence of skin malignancy Lymph nodes: No cervical, supraclavicular, axillary, or inguinal adenopathy. Lungs: Air entry normal with normal breath sounds. No rhonchi or wheezing Cardiovascular: Regular rate and rhythm. No skipped beats Abdomen: Distention with mild diffuse tenderness. Overall distention improved Extremities: No edema. No calf swelling or tenderness. No joint deformity. Neurologic: Alert, cranial nerves II-XII intact; normal gait; no focal weakness or sensory abnormalities Oncology: Obj Data - Labs CBC & Chem 7: 12/17/16 04:57 12/17/16 04:57 Labs: Laboratory Results - last 24 hr 12/15/16 12/16/16 12/17/16 15:06 11:00 04:57 WBC 4.3 RBC 4.92 Hgb 11.8 L Hct 39.0 MCV 79.3 L MCH 24.0 L MCHC 30.3 L RDW 13.8 Plt Count 136 L MPV 10.3 Immature Gran % 0.5 Seg Neutrophils % 76.5 Lymphocytes % 10.8 Monocytes % 8.9 Eosinophils % 2.8 Basophils % 0.5 Neutrophils # 3.3 Lymphocytes # 0.5 L Monocytes # 0.4 Eosinophils # 0.1 Basophils # 0.0 Sodium Potassium Chloride Carbon Dioxide BUN Creatinine Est GFR ( Amer) Est GFR (Non-Af Amer) BUN/Creatinine Ratio Glucose Calculated Osmolality Calcium Phosphorus Magnesium Peritoneal Appearance CLEAR Peritoneal Volume 3500.0 Peritoneal RBC 0.003 H Periton Tot Nuc Cells 640 H Periton Neutrophils 15.0 Peritoneal Eosinophils 1.0 Periton Lymphocytes % 49.0 Periton Monocytes % 7.0 Periton Other Cells % 28.0 Peritoneal Tot Protein 3.4 Peritoneal Albumin 2.1 Peritoneal LDH 106 Hepatitis A IgM Ab Nonreactive Hep Bs Antigen Nonreactive Hep B Core IgM Ab Nonreactive Hepatitis C Ab Screen Nonreactive 12/17/16 04:57 WBC RBC Hgb Hct MCV MCH MCHC RDW Plt Count MPV Immature Gran % Seg Neutrophils % Lymphocytes % Monocytes % Eosinophils % Basophils % Neutrophils # Lymphocytes # Monocytes # Eosinophils # Basophils # Sodium 136 Potassium 4.0 Chloride 104 Carbon Dioxide 27 BUN 15 Creatinine 0.82 Est GFR ( Amer) > 60 Est GFR (Non-Af Amer) > 60 BUN/Creatinine Ratio 18 Glucose 92 Calculated Osmolality 282 Calcium 8.5 L Phosphorus 2.3 Magnesium 1.8 Peritoneal Appearance Peritoneal Volume Peritoneal RBC Periton Tot Nuc Cells Periton Neutrophils Peritoneal Eosinophils Periton Lymphocytes % Periton Monocytes % Periton Other Cells % Peritoneal Tot Protein Peritoneal Albumin Peritoneal LDH Hepatitis A IgM Ab Hep Bs Antigen Hep B Core IgM Ab Hepatitis C Ab Screen - Impressions Impressions Paracentesis Ultrasound 12/16/16 00:00 IMPRESSION: Successful ultrasound guided paracentesis. D/ / iDck Jim MD / Dick Jim MD Interpreting Provider: Dick Jim MD Head CT 12/16/16 14:22 IMPRESSION: No acute intracranial abnormality. No enhancing lesion or evidence of metastatic disease. D/ / Salo Lang MD / Salo Lang MD Interpreting Provider: Salo Lang MD - ABG Interpretation ABG results: PT/INR, D-dimer PT 13.2 Seconds (9.4-12.1) H 12/14/16 23:20 Consult Discharge Plan - Plan Instructions: [facility] C[facility]ter Placement and Care (DC) Referrals: Chandler Clark MD [Primary Care Provider] - 12/23/16 2:30 pm
[2016-12-17 09:58] LABS: Thyroid Stimulating Hormone 2.385 mcIU/mL (0.350-4.840)
[2016-12-17] MEDS ORDERED: *HR* OxyCODONE ER (12 HR) 20 MG TABLET PO SCH (10:00)
[2016-12-17] MEDS: *HR* OxyCODONE ER (12 HR) 10 MG TABLET PO SCH ×2 (10:09→22:04)
[2016-12-17] MEDS: Ondansetron 4 MG/2 ML VIAL IVP PRN (12:16)
[2016-12-17] MEDS ORDERED: *HR* Metoprolol 5 MG/5 ML VIAL IVP ONE (12:40)
[2016-12-17] MEDS: *HR* Promethazine 25 MG/ML VIAL IVP PRN ×2 (12:46→19:55)
[2016-12-17] MEDS ORDERED: *HR* Midazolam HCl 2 MG/2 ML VIAL IVP PRN (14:37)
[2016-12-17] MEDS ORDERED: *HR* FentaNYL (PF) 100 MCG/2 ML VIAL IVP PRN (14:37)
[2016-12-17] MEDS ORDERED: 0.9 % Sodium Chloride 500 ML ONE (14:56)
[2016-12-17 14:58] LABS: Folate 11.3 ng/mL (7.0-31.4)
--- NOTE | 2016-12-17 15:15 | Internal Med Progress Note ---
Date of Encounter: 12/17/16 Time of Encounter: 15:12 - Assessment and plan (1) Ascites Current Visit: Yes Status: Acute Assessment and plan: IR consulted for paracentesis (diagnosis and therapeutic) s/p paracentesis (12/16/16), removed 3.7L straw colored ascitic fluid Peritoneal fluid concerning for SBP, continue Cefotaxime 2gm IV q8h continue supportive care pain control Qualifiers: Ascites type: malignant Qualified Code(s): R18.0 - Malignant ascites (2) SBP (spontaneous bacterial peritonitis) Current Visit: Yes Status: Acute Assessment and plan: as listed above (3) Lung nodules Current Visit: Yes Status: Acute Assessment and plan: Oncology evaluation appreciated f/u CT head continue supportive care awaiting liver biopsy (4) Liver metastasis Current Visit: Yes Status: Acute Assessment and plan: plan as listed above pain control scheduled for liver biopsy later today (5) HTN (hypertension) Current Visit: Yes Status: Acute Assessment and plan: BP within acceptable range continue home meds Qualifiers: Hypertension type: essential hypertension Qualified Code(s): I10 - Essential (primary) hypertension (6) DVT prophylaxis Current Visit: Yes Status: Acute Assessment and plan: SCD (7) Chronic thoracic back pain Current Visit: Yes Status: Acute Assessment and plan: Likely viscerosomatic pain from cancer Remote osteomyelitis of the thoracic spine in 2007 Continue home meds Oxycontin BID in addition to breakthrough pain medications Qualifiers: Back pain laterality: bilateral Qualified Code(s): M54.6 - Pain in thoracic spine; G89.29 - Other chronic pain; G89.29 - Other chronic pain - Subjective Interval history: Patient seen and examined with family present at bedside. s/p paracentesis (12/16). Initially the pain was better controlled, however patient reported of severe discomfort with nausea throughout the day due to which his pain medications have been increased (Oxycontin 30mg PO q12h and Dilaudid 1mg IV q2h) . Pt was also noted to have sinus tachycardia with mild chest discomfort and nausea. EKG was unchanged from prior EKG. STAT TNI is negative. Pt's tachycardia improved after he received Phenergan 12.5mg IV and Lopressor 5mg IV Oncology on board Awaiting cytology of peritoneal fluid for diagnosis. Treating SBP at this time - Constitutional Vitals: Temp Pulse Resp BP Pulse Ox 98.5 F 73 16 142/83 97 12/17/16 10:46 12/17/16 10:46 12/17/16 10:46 12/17/16 10:46 12/17/16 10:46 General appearance: Present: cooperative, A&O X 3, pleasant, no acute distress, obese, answers questions appropriately - Head Head exam: Present: atraumatic, normocephalic - Eye Eye exam: Present: conjuntiva pink, sclera anicteric - Respiratory Respiratory exam: Present: CTAB. Absent: accessory muscle use, rales, rhonchi, wheezes - Cardiovascular Cardiovascular exam: Present: +S1, +S2, tachycardia. Absent: diastolic murmur, systolic murmur - GI/Abdominal GI/Abdominal exam: Present: distended (ascites ), normal bowel sounds, soft, no peritoneal signs. Absent: tenderness - Extremities Exam Extremities exam: Present: warm, radial pulses palpable and symmetrical. Absent : calf tenderness, cyanotic, pedal edema - Neurological Exam Neurological exam: Present: alert, oriented X3 - Psychiatric Psychiatric exam: Present: normal affect, normal mood Internal Medicine: Result - Labs CBC & Chem 7: 12/17/16 04:57 12/17/16 04:57 Labs: Short CBC 12/17/16 Range/Units 04:57 WBC 4.3 (4.3-11.1) K/mcL Hgb 11.8 L (12.9-16.9) g/dL Hct 39.0 (37.5-50.1) % Plt Count 136 L (140-400) K/mcL Neutrophils # 3.3 (1.6-8.9) K/mcL BMP 12/17/16 04:57 Sodium 136 Potassium 4.0 Chloride 104 Carbon Dioxide 27 BUN 15 Creatinine 0.82 Glucose 92 Calcium 8.5 L Cardiac Enzymes 12/17/16 Range/Units 09:15 Troponin I 0.01 (0-0.03) ng/mL - ABG Interpretation ABG results: PT/INR, D-dimer PT 13.2 Seconds (9.4-12.1) H 12/14/16 23:20 - Impressions Impressions Head CT 12/16/16 14:22 IMPRESSION: No acute intracranial abnormality. No enhancing lesion or evidence of metastatic disease. D/ / Salo Lang MD / Salo Lang MD Interpreting Provider: Salo Lang MD Consult Discharge Plan - Plan Instructions: [facility]ter Placement and Care (DC) Referrals: Chandler Clark MD [Primary Care Provider] - 12/23/16 2:30 pm
--- NOTE | 2016-12-17 15:32 | Pre-Sedation Evaluation ---
Pre-sedation evaluation - Pre-sedation checklist Date of procedure: 12/17/16 Procedure: BIOPSY Recent Vitals: Last Vital Signs Temp 98.5 F 12/17/16 10:46 Pulse 88 12/17/16 15:18 Resp 20 12/17/16 15:18 BP 119/76 12/17/16 15:18 Pulse Ox 100 12/17/16 15:18 H&P (including ROS) documented in medical record: Yes Previous reaction to sedatives/anesthetics: No Dietary Status: NPO 6 hours prior to procedure Airway Assessment: Patient can open mouth completely, TMJ function normal, Micrognathia (under-bite, receding chin) absent, Neck with adequate range of motion ASA Classification *see protocol: CLASS II-Mild systemic disease Plan of Care: Pt appropriate candidate for procedure/moderate/conscious sedation , Risks/benefits of procedure/sedation discussed w/ patient/family, If not NPO; Risk of intake outweiged by necessity to perform procedure
--- NOTE | 2016-12-17 15:33 | IR Procedure Note ---
Date of procedure: 12/17/16 Consent Obtained: Verbal consent, Written consent Timeout: Correct patient and procedure verified, Correct site verified, Time out performed, Skin prep completed Local anesthetic: Lidocaine 1% Indications: omental mass Procedure Performed: CT guided omental bx Site/Technique: omentum Results/Findings: 5 cores Estimated blood loss (cc): 2 Complications: None; Tolerated procedure well Post Procedure Treatment Plan: bedrest x 2 hours
[2016-12-18] MEDS: *HR* HYDROmorphone (PF) 1 MG/ML SYRINGE IVP PRN ×8 (03:44→23:13)
[2016-12-18] MEDS: *HR* Promethazine 25 MG/ML VIAL IVP PRN ×4 (03:51→23:12)
[2016-12-18 05:48] LABS: Basophils % 0.4 %; Eosinophils # 0.1 K/mcL (0.0-0.6); Eosinophils % 1.8 %; Hematocrit 39.5 % (37.5-50.1); Hemoglobin 12.1 g/dL (12.9-16.9); Immature Granulocytes % 0.7 % (0-4); Lymphocytes # 0.4 K/mcL (0.6-4.6); Lymphocytes % 9.2 %; Mean Corpuscular HGB Conc 30.6 g/dL (31.6-35.5); Mean Corpuscular Hemoglobin 24.5 pg (28.0-33.3); Mean Platelet Volume 10.6 fL (9.4-12.4); Monocytes # 0.4 K/mcL (0.0-1.3); Monocytes % 9.6 %; Neutrophils # 3.6 K/mcL (1.6-8.9); Platelet Count 148 K/mcL (140-400); Red Blood Count 4.94 M/mcL (4.19-5.50); Segmented Neutrophils % 78.3 %
[2016-12-18 06:10] LABS: BUN/Creatinine Ratio 20 (6-26); Blood Urea Nitrogen 16 mg/dL (8-26); Calcium 8.4 mg/dL (8.6-10.8); Carbon Dioxide 29 mEq/L (19-29); Chloride 102 mEq/L (98-109); Glucose 95 mg/dL (70-99); Magnesium 1.8 mg/dL (1.6-2.6); Osmolality,Calculated 283 (280-300); Phosphorous 2.8 mg/dL (2.3-4.7); Potassium 3.9 mEq/L (3.5-4.5); Sodium 136 mEq/L (136-145); eGFR For African Americans > 60 (> 60); eGFR For Non-African Americans > 60 (> 60)
[2016-12-18] MEDS: Cefotaxime 2,000 MG in D5% in Water 100 ML IVPB SCH ×3 (06:24→23:13)
[2016-12-18] MEDS: Famotidine 20 MG TABLET PO SCH ×2 (06:24→16:04)
[2016-12-18] MEDS: Gabapentin 300 MG CAPSULE PO SCH ×3 (08:10→21:21)
[2016-12-18] MEDS: Ondansetron 4 MG/2 ML VIAL IVP PRN ×2 (08:10→14:39)
[2016-12-18] MEDS: *HR* OxyCODONE ER (12 HR) 10 MG TABLET PO SCH ×3 (10:04→21:21)
[2016-12-18] MEDS ORDERED: *HR* HYDROmorphone (PF) 1 MG/ML SYRINGE IVP PRN (10:44)
--- NOTE | 2016-12-18 13:48 | Internal Med Progress Note ---
Date of Encounter: 12/18/16 Time of Encounter: 13:46 - Assessment and plan (1) Ascites Current Visit: Yes Status: Acute Assessment and plan: IR consulted for paracentesis (diagnosis and therapeutic) s/p paracentesis (12/16/16), removed 3.7L straw colored ascitic fluid Peritoneal fluid concerning for SBP, continue Cefotaxime 2gm IV q8h continue supportive care pain control Qualifiers: Ascites type: malignant Qualified Code(s): R18.0 - Malignant ascites (2) SBP (spontaneous bacterial peritonitis) Current Visit: Yes Status: Acute Assessment and plan: as listed above (3) Lung nodules Current Visit: Yes Status: Acute Assessment and plan: Oncology evaluation appreciated CT head negative for any acute intracranial abnormalities and no metastatic disease continue supportive care s/p omental biopsy, awaiting results (4) Liver metastasis Current Visit: Yes Status: Acute Assessment and plan: plan as listed above pain control unable to get liver biopsy due to location of the mass s/p omental biopsy, awaiting results oncology on board (5) HTN (hypertension) Current Visit: Yes Status: Acute Assessment and plan: BP within acceptable range continue home meds Qualifiers: Hypertension type: essential hypertension Qualified Code(s): I10 - Essential (primary) hypertension (6) DVT prophylaxis Current Visit: Yes Status: Acute Assessment and plan: SCD (7) Chronic thoracic back pain Current Visit: Yes Status: Acute Assessment and plan: Likely viscerosomatic pain from cancer Remote osteomyelitis of the thoracic spine in 2007 Continue home meds Oxycontin TID in addition to breakthrough pain medications Qualifiers: Back pain laterality: bilateral Qualified Code(s): M54.6 - Pain in thoracic spine; G89.29 - Other chronic pain; G89.29 - Other chronic pain - Subjective Interval history: Patient seen and examined with family present at bedside. s/p paracentesis (12/16). Pain better controlled however given the frequency of dilaudid use, will increase Oxycontin 30mg PO TID. Oncology on board Awaiting cytology of peritoneal fluid for diagnosis. s/p Omental biopsy, awaiting results Treating SBP at this time - Constitutional Vitals: Temp Pulse Resp BP Pulse Ox 97.3 F L 84 17 137/80 92 12/18/16 10:54 12/18/16 10:54 12/18/16 10:54 10/06/17 10:54 12/18/16 10:54 General appearance: Present: cooperative, A&O X 3, pleasant, no acute distress, obese, answers questions appropriately - Head Head exam: Present: atraumatic, normocephalic - Eye Eye exam: Present: conjuntiva pink, sclera anicteric - Respiratory Respiratory exam: Present: CTAB. Absent: accessory muscle use, rales, rhonchi, wheezes - Cardiovascular Cardiovascular exam: Present: RRR, +S1, +S2. Absent: diastolic murmur, gallop, rubs, systolic murmur - GI/Abdominal GI/Abdominal exam: Present: distended (ascites ), normal bowel sounds, soft, no peritoneal signs. Absent: tenderness - Extremities Exam Extremities exam: Present: warm, radial pulses palpable and symmetrical. Absent : calf tenderness, pedal edema - Neurological Exam Neurological exam: Present: alert, oriented X3 - Psychiatric Psychiatric exam: Present: normal affect, normal mood Internal Medicine: Result - Labs CBC & Chem 7: 12/18/16 05:15 12/18/16 05:15 Labs: Short CBC 12/18/16 Range/Units 05:15 WBC 4.6 (4.3-11.1) K/mcL Hgb 12.1 L (12.9-16.9) g/dL Hct 39.5 (37.5-50.1) % Plt Count 148 (140-400) K/mcL Neutrophils # 3.6 (1.6-8.9) K/mcL BMP 12/18/16 05:15 Sodium 136 Potassium 3.9 Chloride 102 Carbon Dioxide 29 BUN 16 Creatinine 0.79 Glucose 95 Calcium 8.4 L - ABG Interpretation ABG results: PT/INR, D-dimer PT 13.2 Seconds (9.4-12.1) H 12/14/16 23:20 Consult Discharge Plan - Plan Instructions: [facility] C[facility]ter Placement and Care (DC) Referrals: Chandler Clark MD [Primary Care Provider] - 12/23/16 2:30 pm
--- NOTE | 2016-12-18 18:58 | Electrocardiograph Report ---
[place] [id number] Test Date: 2016-12-17 Pat Name: Almas Jade Department: 112 Room: 2A Gender: M [employer]: ANNA : 1955 Requested By: Debora Guajardo Order Number: [id number] Reading MD: Emeka Rojas MD Measurements Intervals [place] Rate: 71 P: 37 AK: 142 QRS: 0 QRSD: 90 T: -12 QT: 411 QTc: 434 Interpretive Statements SINUS RHYTHM Poor R wave progression Electronically Signed On 12-18-2016 18:57:04 EDT by Emeka Rojas MD
[2016-12-19] MEDS: *HR* HYDROmorphone (PF) 1 MG/ML SYRINGE IVP PRN ×6 (03:22→23:44)
[2016-12-19] MEDS: *HR* OxyCODONE Immed Rel 15 MG TABLET PO PRN ×2 (03:56→13:49)
[2016-12-19] MEDS: *HR* Promethazine 25 MG/ML VIAL IVP PRN ×2 (05:27→19:35)
[2016-12-19] MEDS: Cefotaxime 2,000 MG in D5% in Water 100 ML IVPB SCH ×3 (06:00→22:57)
[2016-12-19 07:15] LABS: Basophils % 0.2 %; Eosinophils # 0.1 K/mcL (0.0-0.6); Eosinophils % 2.2 %; Hematocrit 37.7 % (37.5-50.1); Hemoglobin 11.3 g/dL (12.9-16.9); Immature Granulocytes % 0.9 % (0-4); Lymphocytes # 0.5 K/mcL (0.6-4.6); Lymphocytes % 10.2 %; Mean Corpuscular Hemoglobin 23.7 pg (28.0-33.3); Mean Corpuscular Volume 79.2 fL (83.0-100.0); Mean Platelet Volume 10.2 fL (9.4-12.4); Monocytes # 0.4 K/mcL (0.0-1.3); Monocytes % 9.8 %; Neutrophils # 3.5 K/mcL (1.6-8.9); Platelet Count 133 K/mcL (140-400); Red Blood Count 4.76 M/mcL (4.19-5.50); Segmented Neutrophils % 76.7 %
[2016-12-19 07:38] LABS: BUN/Creatinine Ratio 21 (6-26); Blood Urea Nitrogen 16 mg/dL (8-26); Calcium 8.2 mg/dL (8.6-10.8); Carbon Dioxide 27 mEq/L (19-29); Chloride 103 mEq/L (98-109); Glucose 106 mg/dL (70-99); Magnesium 1.8 mg/dL (1.6-2.6); Osmolality,Calculated 282 (280-300); Phosphorous 2.7 mg/dL (2.3-4.7); Potassium 3.7 mEq/L (3.5-4.5); Sodium 135 mEq/L (136-145); eGFR For African Americans > 60 (> 60); eGFR For Non-African Americans > 60 (> 60)
[2016-12-19] MEDS: Famotidine 20 MG TABLET PO SCH ×2 (08:45→16:14)
[2016-12-19] MEDS: Gabapentin 300 MG CAPSULE PO SCH ×3 (08:45→20:28)
[2016-12-19] MEDS: *HR* OxyCODONE ER (12 HR) 10 MG TABLET PO SCH ×3 (08:46→20:28)
--- NOTE | 2016-12-19 11:07 | Internal Med Progress Note ---
Date of Encounter: 12/19/16 Time of Encounter: 11:05 - Assessment and plan (1) Ascites Current Visit: Yes Status: Acute Assessment and plan: IR consulted for paracentesis (diagnosis and therapeutic) s/p paracentesis (12/16/16), removed 3.7L straw colored ascitic fluid Peritoneal fluid concerning for SBP, continue Cefotaxime 2gm IV q8h continue supportive care pain control Qualifiers: Ascites type: malignant Qualified Code(s): R18.0 - Malignant ascites (2) SBP (spontaneous bacterial peritonitis) Current Visit: Yes Status: Acute Assessment and plan: as listed above (3) Lung nodules Current Visit: Yes Status: Acute Assessment and plan: Oncology evaluation appreciated CT head negative for any acute intracranial abnormalities and no metastatic disease continue supportive care s/p omental biopsy, awaiting results (4) Liver metastasis Current Visit: Yes Status: Acute Assessment and plan: plan as listed above pain control unable to get liver biopsy due to location of the mass s/p omental biopsy, awaiting results oncology on board (5) HTN (hypertension) Current Visit: Yes Status: Acute Assessment and plan: BP within acceptable range continue home meds Qualifiers: Hypertension type: essential hypertension Qualified Code(s): I10 - Essential (primary) hypertension (6) DVT prophylaxis Current Visit: Yes Status: Acute Assessment and plan: SCD (7) Chronic thoracic back pain Current Visit: Yes Status: Acute Assessment and plan: Likely viscerosomatic pain from cancer Remote osteomyelitis of the thoracic spine in 2007 Continue home meds Oxycontin TID in addition to breakthrough pain medications Qualifiers: Back pain laterality: bilateral Qualified Code(s): M54.6 - Pain in thoracic spine; G89.29 - Other chronic pain; G89.29 - Other chronic pain - Subjective Interval history: Patient seen and examined with family present at bedside. s/p paracentesis (12/16). Pain better controlled, will continue current regimen. Oncology on board Awaiting cytology of peritoneal fluid for diagnosis. s/p Omental biopsy, awaiting results Treating SBP at this time Discharge pending pain control without IV pain meds - Constitutional Vitals: Temp Pulse Resp BP Pulse Ox 97.7 F 83 18 135/88 97 12/19/16 07:57 12/19/16 07:57 12/19/16 07:57 12/19/16 07:57 12/19/16 07:57 General appearance: Present: cooperative, A&O X 3, pleasant, no acute distress, obese, answers questions appropriately - Head Head exam: Present: atraumatic, normocephalic - Eye Eye exam: Present: conjuntiva pink, sclera anicteric - Respiratory Respiratory exam: Present: CTAB. Absent: accessory muscle use, rales, rhonchi, wheezes - Cardiovascular Cardiovascular exam: Present: RRR, +S1, +S2. Absent: diastolic murmur, gallop, rubs, systolic murmur - GI/Abdominal GI/Abdominal exam: Present: distended (ascites), normal bowel sounds. Absent: tenderness - Extremities Exam Extremities exam: Present: warm, radial pulses palpable and symmetrical. Absent : calf tenderness, cyanotic, pedal edema - Neurological Exam Neurological exam: Present: alert, oriented X3 Internal Medicine: Result - Labs CBC & Chem 7: 12/19/16 06:55 12/19/16 06:55 Labs: Short CBC 12/19/16 Range/Units 06:55 WBC 4.5 (4.3-11.1) K/mcL Hgb 11.3 L (12.9-16.9) g/dL Hct 37.7 (37.5-50.1) % Plt Count 133 L (140-400) K/mcL Neutrophils # 3.5 (1.6-8.9) K/mcL BMP 12/19/16 06:55 Sodium 135 L Potassium 3.7 Chloride 103 Carbon Dioxide 27 BUN 16 Creatinine 0.78 Glucose 106 H Calcium 8.2 L - ABG Interpretation ABG results: PT/INR, D-dimer PT 13.2 Seconds (9.4-12.1) H 12/14/16 23:20 - Impressions Impressions Abdomen Biopsy CT 12/17/16 00:00 IMPRESSION: Successful CT guided core biopsy of an omental mass. D/ / 12/18/2016 15:39:31 Yobany Cardenas MD / [facility] Interpreting Provider: Yobany Cardenas MD - VTE Documentation of Mechanical Device: Intermittent pneumatic compression device Consult Discharge Plan - Plan Instructions: [facility] Catheter Placement and Care (DC) Referrals: Chandler Clark MD [Primary Care Provider] - 12/23/16 2:30 pm
[2016-12-19] MEDS: Ondansetron 4 MG/2 ML VIAL IVP PRN (13:53)
--- NOTE | 2016-12-19 15:46 | Oncology Inp Progress Note ---
Date of Encounter: 12/19/16 Time of Encounter: 14:30 (1) Liver metastasis Current Visit: Yes Status: Acute Assessment and plan: He has multiple liver lesions as well as peritoneal carcinomatosis with ascites consistet with underlying malignancy, most likely GI primary. Biopsy has been completed and will hopefully have results early this coming week. Could be d/c home if stable with close f/u with Dr. Howe. Will continue to follow while hospitalized. Oncology: Subj Interval history: Mr. Jade is doing okay. He had some dyspepsia with mild nausea. Responded nicely to pepcid. No abdominal pain. Moving his bowels without difficulty. Ambulated some this morning and hopes to more when his arrives. - Constitutional Vitals: Vital Signs Temp Pulse Resp BP Pulse Ox 12/19/16 11:38 97.8 F 81 18 119/77 96 12/19/16 07:57 97.7 F 83 18 135/88 97 12/19/16 03:59 98.1 F 87 18 107/72 94 12/18/16 23:15 98.3 F 96 16 113/73 96 12/18/16 18:08 99.7 F H 94 17 114/69 95 12/18/16 15:49 98.4 F 85 17 110/71 90 Intake and Output 12/19/16 12/19/16 12/19/16 00:59 08:59 16:59 Intake Total 570 / 570 100 / 100 240 / 240 Output Total 500 / 500 300 / 300 Balance 70 / 70 100 / 100 -60 / -60 Intake: IV Fluids 100 / 100 100 / 100 Claforan 2,000 MG In Dextrose 5 100 / 100 100 / 100 % 100 ML @ 200 mls/hr IVPB Q8H REPLACED BY [facility] Rx#:[id number] Oral 470 / 470 240 / 240 Output: Urine 500 / 500 300 / 300 Other: Meal Dinner Lunch Percent of Meal Consumed 95% 50% Weight 96.162 kg - Head Head exam: Present: atraumatic, normal inspection, normocephalic - Eye Eye exam: Present: normal appearance, conjuntiva pink, sclera anicteric - ENT ENT exam: Present: mucous membranes moist, normal exam - Neck Neck exam: Present: full ROM, normal inspection - Respiratory Respiratory exam: Present: CTAB - Cardiovascular Cardiovascular exam: Present: RRR - GI/Abdominal GI/Abdominal exam: Present: distended, soft - Extremities Exam Extremities exam: Present: normal inspection - Back Exam Back exam: Present: normal inspection - Neurological Exam Neurological exam: Present: alert, CN II-XII intact, oriented X3 Oncology: Obj Data - Labs CBC & Chem 7: 12/19/16 06:55 12/19/16 06:55 Labs: Laboratory Results - last 24 hr 12/19/16 12/19/16 06:55 06:55 WBC 4.5 RBC 4.76 Hgb 11.3 L Hct 37.7 MCV 79.2 L MCH 23.7 L MCHC 30.0 L RDW 14.0 Plt Count 133 L MPV 10.2 Immature Gran % 0.9 Seg Neutrophils % 76.7 Lymphocytes % 10.2 Monocytes % 9.8 Eosinophils % 2.2 Basophils % 0.2 Neutrophils # 3.5 Lymphocytes # 0.5 L Monocytes # 0.4 Eosinophils # 0.1 Basophils # 0.0 Sodium 135 L Potassium 3.7 Chloride 103 Carbon Dioxide 27 BUN 16 Creatinine 0.78 Est GFR ( Amer) > 60 Est GFR (Non-Af Amer) > 60 BUN/Creatinine Ratio 21 Glucose 106 H Calculated Osmolality 282 Calcium 8.2 L Phosphorus 2.7 Magnesium 1.8 - ABG Interpretation ABG results: PT/INR, D-dimer PT 13.2 Seconds (9.4-12.1) H 12/14/16 23:20 Consult Discharge Plan - Plan Instructions: [facility] Catheter Placement and Care (DC) Referrals: Chandler Clark MD [Primary Care Provider] - 12/23/16 2:30 pm
[2016-12-20 01:22] LABS: Alpha 2 Globulin (PEP) 0.58 g/dL (0.48-1.05); Beta Globulin (PEP) 0.71 g/dL (0.48-1.10)
[2016-12-20] MEDS: *HR* HYDROmorphone (PF) 1 MG/ML SYRINGE IVP PRN (02:35)
[2016-12-20] MEDS: *HR* Promethazine 25 MG/ML VIAL IVP PRN ×2 (02:35→09:12)
[2016-12-20] MEDS: Cefotaxime 2,000 MG in D5% in Water 100 ML IVPB SCH (05:59)
[2016-12-20] MEDS: Famotidine 20 MG TABLET PO SCH (06:08)
[2016-12-20] MEDS: *HR* OxyCODONE Immed Rel 15 MG TABLET PO PRN (06:09)
[2016-12-20 06:29] LABS: Basophils % 0.5 %; Eosinophils # 0.1 K/mcL (0.0-0.6); Eosinophils % 2.5 %; Hematocrit 38.5 % (37.5-50.1); Hemoglobin 11.5 g/dL (12.9-16.9); Immature Granulocytes % 0.2 % (0-4); Lymphocytes # 0.6 K/mcL (0.6-4.6); Lymphocytes % 13.8 %; Mean Corpuscular HGB Conc 29.9 g/dL (31.6-35.5); Mean Corpuscular Hemoglobin 23.6 pg (28.0-33.3); Mean Corpuscular Volume 79.1 fL (83.0-100.0); Mean Platelet Volume 9.9 fL (9.4-12.4); Monocytes # 0.3 K/mcL (0.0-1.3); Monocytes % 8.4 %; Platelet Count 111 K/mcL (140-400); Red Blood Count 4.87 M/mcL (4.19-5.50); Red Cell Distribution Width 13.9 % (11.5-14.5); Segmented Neutrophils % 74.6 %
[2016-12-20 06:42] LABS: BUN/Creatinine Ratio 18 (6-26); Blood Urea Nitrogen 15 mg/dL (8-26); Calcium 8.4 mg/dL (8.6-10.8); Carbon Dioxide 30 mEq/L (19-29); Chloride 102 mEq/L (98-109); Glucose 107 mg/dL (70-99); Magnesium 1.8 mg/dL (1.6-2.6); Osmolality,Calculated 279 (280-300); Phosphorous 2.6 mg/dL (2.3-4.7); Sodium 134 mEq/L (136-145); eGFR For African Americans > 60 (> 60); eGFR For Non-African Americans > 60 (> 60)
[2016-12-20 07:57] VITALS: BP 136/84
[2016-12-20] MEDS ORDERED: *HR* HYDROmorphone (PF) 1 MG/ML SYRINGE IVP PRN (08:37)
[2016-12-20] MEDS: Gabapentin 300 MG CAPSULE PO SCH (09:07)
[2016-12-20] MEDS: *HR* OxyCODONE ER (12 HR) 10 MG TABLET PO SCH (09:08)
--- NOTE | 2016-12-20 10:33 | Discharge Summary ---
Date of Encounter: 12/20/16 Time of Encounter: 10:29 - Discharge Diagnosis (1) Ascites Priority: Primary Status: Acute Qualifiers: Ascites type: malignant Qualified Code(s): R18.0 - Malignant ascites (2) SBP (spontaneous bacterial peritonitis) Priority: Secondary Status: Acute (3) Lung nodules Priority: Primary Status: Acute (4) Liver metastasis Priority: Primary Status: Acute (5) HTN (hypertension) Priority: Secondary Status: Chronic Qualifiers: Hypertension type: essential hypertension Qualified Code(s): I10 - Essential (primary) hypertension (6) DVT prophylaxis Priority: Secondary Status: Acute (7) Chronic thoracic back pain Priority: Secondary Status: Chronic Qualifiers: Back pain laterality: bilateral Qualified Code(s): M54.6 - Pain in thoracic spine; G89.29 - Other chronic pain; G89.29 - Other chronic pain - Discharge Medications Prescriptions: OxyCODONE ER (12 HR) [OxyCONTIN] 30 mg PO TID #20 tab.er.12h Home Medications: Gabapentin [Neurontin] 600 - 1,200 mg PO TID 08/10/16 [History] Lisinopril [Zestril] 5 mg PO DAILY 08/10/16 [History] Promethazine [Phenergan] 25 mg PO TID PRN 08/10/16 [History] Ferrous Gluconate 324 mg PO DAILY 12/14/16 [History] Oxycodone HCl [Roxicodone 30 MG Immed Release] 30 - 60 mg PO Q4H 12/14/16 [ History] Polyethylene Glycol 3350 [MiraLAX] 17 gm PO QPM 12/14/16 [History] OxyCODONE ER (12 HR) [OxyCONTIN] 30 mg PO TID #20 tab.er.12h 12/20/16 [Rx] Allergies/Adverse Reactions: 3 Allergy/AdvReac Type Severity Reaction Status Date / Time morphine Allergy Rash Verified 12/14/16 13:34 Procedures/tests Complete & Pending: Procedures Performed prior 72 hours Category Date Time Status ECG 12 lead ECG [ECG] Routine Y 12/17/16 10:10 Completed Date of admission: 12/14/16 19:53 Primary care physician: Chandler Clark Consults: 12/14/16 20:12 Consult to Nutrition [CONS] Routine Comment: New DX cancer Consulting Provider: NUTRITION Reason for Dietary Consult: MST Score 12/15/16 14:17 Consult to Interventional Radiology [CONS] Routine Consulting Provider: Radiology Interventional Cols Reason for Consult: liver biopsy Call Completed: No 12/15/16 15:00 Consult to Interventional Radiology [CONS] Stat Consulting Provider: Radiology Interventional Cols Reason for Consult: Paracentesis Call Completed: No Discharging clinician: Debora Guajardo Anticipated date of discharge: 12/20/16 - Patient Status Disposition: Home, Self-Care Condition: Good Functional capacity at discharge: independent ambulation Overall status at discharge: patient is back to baseline - Discharge Instructions Instructions: [facility] Catheter Placement and Care (DC), Anemia (GEN) Follow Up With: Raleigh Munoz MD [Partnered Physician] - (Physican was web requested, if you do not hear from them by Wednesday, given them a call. [phone]) Chandler Clark MD [Primary Care Provider] - 12/23/16 2:30 pm Additional Instructions: Please follow up with your primary care physician and oncologist within five days after your discharge from the hospital. Please continue your home medications as prescribed by your primary care physician. - Diet and Activity Activity: resume usual activities as tolerated Diet: low salt diet Hospital course: Mr. Jade is a 60 year old male with PMH of HTN, chronic back pain who was admitted for management of abdominal pain secondary to diffuse ascites and new findings of lung nodules, and liver mass concerning for metastatic disease. Pt underwent therapeutic and diagnosis paracentesis. Peritoneal fluid was concerning for SBP and was started on empiric IV abx. He was followed by oncology and underwent omental biopsy. His discharge was delayed due to pain control. He continuously required IV pain meds despite addition of oxcontin. At this time pt is hemodynamically stable and states his pain is better controlled. He has states he is ok with his PO medications and states his pain is better control. He has finished treatment for his SBP. He will be followed by Dr. munoz (oncology) for his biopsy results and further management. Pt will be discharged to home with follow up with oncology and pcp. Pt demonstrates understanding of his diagnosis and agrees with the discharge care and plan. - Time Spent with Patient Total time spent providing and/or coordinating discharge services: Less than 30 minutes - Constitutional Vitals: Temp Pulse Resp BP Pulse Ox 98.1 F 82 18 136/84 92 12/20/16 07:56 12/20/16 07:56 12/20/16 07:56 12/20/16 07:56 12/20/16 07:56 General appearance: Present: cooperative, A&O X 3, pleasant, no acute distress, obese, answers questions appropriately - Head Head exam: Present: atraumatic, normocephalic - Eye Eye exam: Present: conjuntiva pink, sclera anicteric - Respiratory Respiratory exam: Present: CTAB. Absent: accessory muscle use, rales, rhonchi, wheezes - Cardiovascular Cardiovascular exam: Present: RRR, +S1, +S2. Absent: diastolic murmur, gallop, rubs, systolic murmur - GI/Abdominal GI/Abdominal exam: Present: distended (ascites), normal bowel sounds, soft, no peritoneal signs. Absent: tenderness - Extremities Exam Extremities exam: Present: warm, radial pulses palpable and symmetrical. Absent : calf tenderness, cyanotic, pedal edema - Neurological Exam Neurological exam: Present: alert, oriented X3 - Psychiatric Psychiatric exam: Present: normal affect, normal mood - VTE Documentation of Mechanical Device: Intermittent pneumatic compression device
[2016-12-20 14:37] LABS: Kappa Qnt Free Light Chains 3.89 mg/dL (0.33-1.94); Lambda Qnt Free Light Chains 1.79 mg/dL (0.57-2.63)
[2016-12-21 08:51] LABS: IFE Reflexed NOT DONE
== END 2016-12-20 11:46 | disposition home or self-care (01) | DRG 372 ==
LOC: EMEROO 13:03 → 2ANU 13:03 → SUATTDRO 17:36 → 2ANU 18:36
PROVIDERS: ADMIT Nurse Practitioner Acute Care; ATTEND Internal Medicine
PROC: IRLIVER (2016-12-16 12:00)

== ENCOUNTER 2017-01-02 07:48 | Inpatient (IN) ==
--- NOTE | 2017-01-02 11:12 | Internal Med History&Physical ---
Date of Encounter: 01/02/17 Time of Encounter: 11:08 Assessment and Plan (1) Pancreatic cancer metastasized to liver Current visit: Yes Status: Acute Consult to oncology. Patient understands his poor prognosis. He is not sure that he wants to start chemotherapy. We will consult oncology to explore all the options. The patient expressed his wish to me to not have resuscitation or mechanical ventilation; I will order DNR DNI. (2) Intractable nausea and vomiting Current visit: Yes Status: Acute Given peritoneal carcinomatosis and liver metastases small bowel obstruction as high in the differential. I will order a CT abdomen and pelvis to evaluate for this. We will start nothing by mouth. IV Phenergan and Zofran for nausea and vomiting. If vomiting is not controlled with IV medication I will order NG tube insertion and suction. IV fluid hydration. Qualifiers: Vomiting type: unspecified Qualified Code(s): R11.2 - Nausea with vomiting , unspecified (3) HTN (hypertension) Current visit: No Status: Chronic Hold oral antihypertensive medication. We will use IV metoprolol as needed. Qualifiers: Hypertension type: essential hypertension Qualified Code(s): I10 - Essential (primary) hypertension (4) DVT prophylaxis Current visit: No Status: Acute Subcutaneous Lovenox. He is at very high risk for DVT due to pancreatic cancer. Internal Medicine - H&P: HPI Chief complaint: Nausea and vomiting Admitted From: Hospital to Hospital Transfer Plans for Post Hospital Care: Home History of present illness: Mr. Jade is a 61 year old male with past medical history of chronic back pain secondary to remote osteomyelitis and recently diagnosed metastatic pancreatic cancer who was transferred from [facility] were he presented for evaluation of nausea and vomiting. He reports he days of worsening nausea and nonbloody no belly is clear liquid vomiting. Describes 25- 30 episodes of vomiting a day, he has not been able to eat, has been able to take sips of fluids. Reports associated midabdominal pain and diarrhea. He had been prescribed Phenergan suppository but cannot use them due to diarrhea. He could not take his oxycodone tablets which she chronically takes for back pain due to vomiting. During a prior admission he was evaluated by oncology and was scheduled to have a port placed for chemotherapy. He has not been able to make that appointment due to nausea and vomiting. The patient was transferred to our facility for further workup and care. Review of systems also positive for chronic lower extremity swelling, chronic back pain. Family history: Positive for [place] in the patient's father who at age 52, 2 sisters suffered with lung cancer. Social history: Never smoker, denies alcohol abuse, denies recreational drug use Past Med Surg Social Fam HX - Past Medical History Medical history: cancer, hypertension, other Psychiatric history: no psych history - Past Surgical History Surgical History: no surgical history - Social History Smoking Status: Never smoker Smokeless Tobacco Status: No Alcohol use: none Drug use: none - Family History Father Living Status: Hx Family Cardiac Disorders: Yes ([place] at age 52) Mother Living Status: Hx Family Cardiac Disorders: No Hx Family Cancer: No Brother Hx Family Cancer: Yes (Lung cancer) Sister Hx Family Cancer: Yes (Lung cancer) Internal Medicine - H&P: Meds Gabapentin [Neurontin] 600 - 1,200 mg PO TID 08/10/16 [History] Lisinopril [Zestril] 5 mg PO DAILY 08/10/16 [History] Ferrous Gluconate 324 mg PO DAILY 12/14/16 [History] Oxycodone HCl [Roxicodone 30 MG Immed Release] 30 - 60 mg PO Q4H 12/14/16 [ History] Polyethylene Glycol 3350 [MiraLAX] 17 gm PO QPM 12/14/16 [History] Furosemide [Lasix] 20 mg PO DAILY 12/25/16 [History] Omeprazole [PriLOSEC] 20 mg PO BIDAC #30 cap 12/25/16 [Rx] Ondansetron HCl [Zofran] 4 mg PO Q4H PRN #30 tablet 12/25/16 [Rx] Prochlorperazine Maleate [Compazine] 10 mg PO Q6H PRN #30 tablet 12/25/16 [Rx] Spironolactone [Aldactone] 50 mg PO DAILY 12/25/16 [History] OxyCODONE ER (12 HR) [OxyCONTIN] 40 mg PO TID PRN 01/01/17 [History] Promethazine [Phenergan] 25 mg PO Q6HR #10 tablet 01/01/17 [Rx] Promethazine [Phenergan] 25 mg RC Q6HR #10 supp.rect 01/01/17 [Rx] 3 Allergy/AdvReac Type Severity Reaction Status Date / Time morphine Allergy Rash Verified 01/02/17 06:25 All Systems PM: A 10-system review of systems was performed and is negative for pertinent findings except as documented above in the HPI. - Constitutional Vitals: Temp Pulse Resp BP Pulse Ox 98.0 F 86 16 168/97 98 01/02/17 10:36 01/02/17 10:36 01/02/17 10:36 01/02/17 10:36 01/02/17 10:36 General appearance: Present: A&O X 3 - Eye Eye exam: Present: PERRL, conjuntiva pink, sclera anicteric Pupils: Present: PERRL - Neck Neck exam general surgery: Present: supple, trachea midline. Absent: lymphadenopathy - Respiratory Respiratory exam: Present: CTAB. Absent: accessory muscle use, rales, rhonchi, wheezes - Cardiovascular Cardiovascular exam: Present: RRR, +S1, +S2. Absent: diastolic murmur, gallop, rubs, systolic murmur - GI/Abdominal GI/Abdominal exam: Present: diminished bowel sounds, distended, normal bowel sounds, soft, tenderness (Mildly tender to palpation with no guarding or rebound ), no peritoneal signs - Extremities Exam Extremities exam: Present: warm, radial pulses palpable and symmetrical. Absent : calf tenderness, cyanotic, pedal edema - Neurological Exam Neurological exam: Present: CN II-XII intact, oriented X3, no focal deficits. Absent: pronater drift, facial droop, speech deficit - Skin Skin exam: Present: dry, intact Internal Med - H&P Results - Labs Labs: Her review of [facility] medical record laboratory studies from today 01/02/2017: White blood cell count 6.1, hemoglobin 14.7, platelet count 193. Chemistry sodium: 139, potassium 4.0, BUN 16, creatinine 0.77, glucose 104.
[2017-01-02] MEDS ORDERED: Naloxone 0.4 MG/ML INJ IVP PRN (11:13)
[2017-01-02] MEDS ORDERED: Acetaminophen 325 MG TABLET PO PRN (11:13)
[2017-01-02] MEDS: Famotidine 20 MG/2 ML VIAL IVP SCH ×2 (11:57→22:04)
[2017-01-02] MEDS: 0.9 % Sodium Chloride 1,000 ML IVC SCH ×2 (11:58→16:38)
[2017-01-02] MEDS: *HR* HYDROmorphone (PF) 1 MG/ML SYRINGE IVP PRN ×5 (11:58→22:17)
[2017-01-02] MEDS: *HR* Promethazine 25 MG/ML VIAL IVP PRN ×2 (11:58→18:25)
[2017-01-02] MEDS: Ondansetron 4 MG/2 ML VIAL IVP PRN ×2 (15:05→22:23)
[2017-01-02] MEDS ORDERED: *HR* Promethazine 25 MG/ML VIAL IVP STA (15:49)
[2017-01-02] MEDS: *HR* Promethazine 25 MG/ML VIAL IVP SCH (20:22)
[2017-01-03] MEDS: *HR* Promethazine 25 MG/ML VIAL IVP SCH ×6 (00:11→20:07)
[2017-01-03] MEDS: *HR* HYDROmorphone (PF) 1 MG/ML SYRINGE IVP PRN ×6 (00:12→13:12)
[2017-01-03] MEDS ORDERED: *HR* Promethazine 25 MG/ML VIAL IVP ONE (02:21)
[2017-01-03] MEDS ORDERED: Ondansetron 4 MG/2 ML VIAL IVP PRN (02:24)
[2017-01-03] MEDS: 0.9 % Sodium Chloride 1,000 ML IVC SCH ×2 (02:43→13:19)
[2017-01-03 04:05] LABS: Basophils % 0.1 %; Eosinophils % 0.6 %; Hematocrit 41.7 % (37.5-50.1); Hemoglobin 13.2 g/dL (12.9-16.9); Immature Granulocytes % 0.4 % (0-4); Lymphocytes # 0.6 K/mcL (0.6-4.6); Lymphocytes % 8.1 %; Mean Corpuscular HGB Conc 31.7 g/dL (31.6-35.5); Mean Corpuscular Hemoglobin 24.4 pg (28.0-33.3); Mean Corpuscular Volume 77.2 fL (83.0-100.0); Mean Platelet Volume 10.8 fL (9.4-12.4); Monocytes # 0.5 K/mcL (0.0-1.3); Monocytes % 7.4 %; Neutrophils # 5.9 K/mcL (1.6-8.9); Platelet Count 151 K/mcL (140-400); Red Cell Distribution Width 14.6 % (11.5-14.5); Segmented Neutrophils % 83.4 %
[2017-01-03] MEDS ORDERED: *HR* Enoxaparin 40 MG/0.4 ML SYRINGE SQ SCH (06:00)
[2017-01-03] MEDS ORDERED: *HR* HYDROmorphone (PF) 1 MG/ML SYRINGE IVP ONE (08:15)
[2017-01-03] MEDS ORDERED: *HR* OxyCODONE Oral Soln 5 MG/5 ML UD.LIQ PO PRN (08:45)
[2017-01-03] MEDS: Famotidine 20 MG/2 ML VIAL IVP SCH ×2 (10:48→22:00)
[2017-01-03] MEDS ORDERED: *HR* OxyCODONE Immed Rel 15 MG TABLET PO SCH (12:00)
[2017-01-03] MEDS ORDERED: Ondansetron 4 MG/2 ML VIAL IVP SCH ×2 (14:00→16:00)
--- NOTE | 2017-01-03 14:18 | Internal Med Progress Note ---
Date of Encounter: 01/03/17 Time of Encounter: 14:16 - Assessment and plan (1) Pancreatic cancer metastasized to liver Current Visit: Yes Status: Acute Assessment and plan: Almas Jade is a 61-year-old male with past medical history meta- pancreatic cancer, chronic back pain and hypertension who presented to [facility] on 01/01/2017 with complaints of nausea, vomiting and uncontrolled pain. He was admitted for further workup and treatment. 1. Metastatic pancreatic cancer: Recently diagnosed. Follows with Dr. Howe. Per chart review, malignancy is aggressive is rapidly progressing. Patient is considering chemotherapy. Repeat abdominal CT with progression of peritoneal carcinomatosis, demonstration of known liver and intrapulmonary metastatic disease. CT also showed enlargement of osseous bone lesion invading the seventh right rib. Continue symptomatic control of pain and nausea. Oncology and pain management consulted 2. Intractable nausea and vomiting: For 5 days prior to admission. Patient reports not being able to keep anything down including pain medicine. Abdominal CT was evidence of disease progression but without obstruction. Family concerned he is possibly experiencing withdrawal symptoms since he has not been ill or tolerate pain medication. Remains nauseated, no emesis. Continue alternating Zofran and Phenergan (dose and frequency increased). Change IV fluids to D5.9. 3. DVT: 01/03/2017 with acute DVT in the right peroneal vein and right calf. Start therapeutic Lovenox. 4. Aspiration pneumonia: suspected. ABD CT with bilateral lobe consolidation, concerning for possible aspiration pneumonia. Afebrile, no elevated white count. Will start Levaquin, Flagyl. Respiratory PCR, urinary antigens and sputum culture pending. 5. Chronic back pain: Per history. OAARS reviewed on 01/03/2017 and patient is taking 40 mg of OxyContin 3 times a day and 30 mg OxyIR every 3 hours as needed for pain at home. Patient reports he has not been taking the OxyContin as it has made him nauseated. Now with significant, uncontrolled pain. Unable to tolerate pain medicine with nausea and vomiting. Continue IV Dilaudid. Pain management consulted 6. Essential hypertension: per hx. Now with Hypertensive Urgency with SBPs greater than 180; secondary to not being able to take BP medications and uncontrolled pain. Add scheduled and PRN IV antihypertensives. (2) Intractable nausea and vomiting Current Visit: Yes Status: Acute Qualifiers: Vomiting type: unspecified Qualified Code(s): R11.2 - Nausea with vomiting , unspecified (3) Chronic thoracic back pain Current Visit: No Status: Chronic Qualifiers: Back pain laterality: bilateral Qualified Code(s): M54.6 - Pain in thoracic spine; G89.29 - Other chronic pain; G89.29 - Other chronic pain (4) SBP (spontaneous bacterial peritonitis) Current Visit: No Status: Acute (5) DVT prophylaxis Current Visit: No Status: Acute - Subjective Interval history: Seen and examined at bedside. Patient is new to me. Information obtained from chart review and patient report. Appears uncomfortable. Patient says he does not feel well, reports 10 out of 10 sharp abdominal pain. Pain is localized to her entire abdomen, nothing makes better or worse. Says pain medicine is not helping. He is on heavy dose of oxycodone at home and has not been able to take medicine since last Wednesday. He thinks he may be in withdrawal. He is also nauseated, no emesis but does have dry heaves. Family at bedside and updated. - Constitutional Vitals: Temp Pulse Resp BP Pulse Ox 98.1 F 76 16 176/84 98 01/03/17 11:55 01/03/17 11:55 01/03/17 11:55 01/03/17 11:55 01/03/17 11:55 General appearance: Present: mild distress, A&O X 3 - Head Head exam: Present: atraumatic, normocephalic - Eye Eye exam: Present: PERRL, conjuntiva pink, sclera anicteric Pupils: Present: PERRL - Neck Neck exam general surgery: Present: supple, trachea midline. Absent: lymphadenopathy - Respiratory Respiratory exam: Present: CTAB. Absent: accessory muscle use, rales, rhonchi, wheezes - Cardiovascular Cardiovascular exam: Present: RRR, +S1, +S2. Absent: diastolic murmur, gallop, rubs, systolic murmur - GI/Abdominal GI/Abdominal exam: Present: distended, firm, normal bowel sounds, tenderness, no peritoneal signs - Extremities Exam Extremities exam: Present: pedal edema, warm, radial pulses palpable and symmetrical. Absent: calf tenderness, cyanotic - Neurological Exam Neurological exam: Present: CN II-XII intact, oriented X3, no focal deficits. Absent: pronater drift, facial droop, speech deficit - Skin Skin exam: Present: dry, intact Internal Medicine: Result - Labs CBC & Chem 7: 01/03/17 03:32 Labs: Short CBC 01/03/17 Range/Units 03:32 WBC 7.0 (4.3-11.1) K/mcL Hgb 13.2 D (12.9-16.9) g/dL Hct 41.7 (37.5-50.1) % Plt Count 151 (140-400) K/mcL Neutrophils # 5.9 (1.6-8.9) K/mcL - Impressions Impressions Abdomen/Pelvis CT 01/02/17 16:01 IMPRESSION: 1. No evidence of acute bowel inflammation or obstruction. 2. Slight interval progression of peritoneal carcinomatosis since the study of 12/14/2016. 3. Stable intrahepatic metastatic disease. 4. Stable splenomegaly. 5. Interval increase in size of small bilateral pleural effusions with dependent airspace consolidation within the bilateral lower lobes, likely passive atelectasis, though underlying aspiration or pneumonia cannot be excluded. 6. Stable scattered bibasilar pulmonary nodules, concerning for intrapulmonary metastatic disease. 7. Interval enlargement of an osseous metastasis invading the right 7th rib. D/ / 01/02/2017 17:32:23 Jim Breaux MD / [facility] Interpreting Provider: Jim Breaux MD Consult Discharge Plan - Plan Referrals: Chandler Clark MD [Primary Care Provider] -
[2017-01-03] MEDS ORDERED: *HR* HYDROmorphone 2 MG/ML SYRINGE IVP ONE (14:44)
[2017-01-03] MEDS: Ondansetron 4 MG/2 ML VIAL IVP SCH ×3 (15:02→22:01)
[2017-01-03] MEDS ORDERED: *HR* Labetalol 20 MG/4 ML SYRINGE IVP PRN (15:04)
[2017-01-03] MEDS ORDERED: *HR* OxyCODONE ER (12 HR) 10 MG TABLET PO SCH (16:00)
[2017-01-03] MEDS: D5% in 0.9% NACL 1,000 ML IVC SCH (16:18)
[2017-01-03] MEDS: MetroNIDAZOLE 500 MG/100 ML 500 MG/100 ML BAG IVPB SCH (16:30)
--- NOTE | 2017-01-03 16:39 | Oncology Inp Consult Note ---
Date of Encounter: 01/03/17 Time of Encounter: 16:39 Assessment and Plan (1) Pancreatic cancer metastasized to liver Status: Acute Assessment and plan: 1. 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 Multiple peritoneal deposits. Also PET active right sixth rib metastasis CT chest showed Also bilateral multiple lung nodules mostly subcentimeter CT thoracic and lumbar spine negative CT abdomen and pelvis 01/02/2017 showed increase in the peritoneal deposits compared to 2 weeks ago. Liver metastasis and mild splenomegaly stable also demonstrated right reported a seventh rib metastasis and he has pain in that area His prognosis is poor. Discussed at the conference. His cancer is well advanced. Pancreaticobiliary will not respond to immunotherapy. He is a poor risk candidate for chemotherapy and he is not interested in chemotherapy as well as When he is an inpatient recommend EGD to see if he has any source of tumor. Also that may explain his nausea because he is nausea is not getting controlled Recurrent ascites from peritoneal deposit. He at 3.7 L drained 12/15/2016 and another 2.5 L drained 12/25/2016. It does relieve his pressure. Recommend ultrasound guided paracentesis and leaving Paracentesis catheter in us he is getting frequent site is Pain control. He is on Dilaudid pain pump. 0.5 mg IV bolus Q 10 minutes. Consider baseline rate may start with 1 mg Dilaudid per hour and increase as tolerated. Goals of care discussed. He would be appropriate candidate for hospice. EGD shows any evidence of gastric tumor may consider immune therapy DVT lower extremity. On Lovenox 1090 mg subcutaneous twice a day CBC CMP grossly unremarkable. Hemoglobin 13.2 but MCV 77 with low iron. Serum protein electrophoresis negative. Will check LDH - Data of Consult Requesting Physician: Tammy Castillo CNP Primary Care Provider: Chandler Clark - Consult Narrative Reason for consult: Metastatic carcinoma History of present illness: Mr. Jade is a 61 year old male Oncological history 1. Metastatic carcinoma. Unknown primary. Likely pancreaticobiliary in origin Admitted with 3-4 week history of abdominal distention and pain mainly right lower quadrant. CAT scan abdomen without contrast showed multiple liver lesions largest about 3 cm. Also multiple peritoneal deposit surrounding the colon suspicious for peritoneal carcinomatosis. Proceed with CT-guided liver biopsy of the liver lesion CT angiogram chest showed subcentimeter nodules largest 5 INR is acceptable at 1.2 On 12/17/2016 CEA low at 1.9. CA 19-9 normal at 13. Alpha-fetoprotein mildly elevated at 21 Pathology Likely pancreaticobiliary. Upper GI is also in the differential. We will rule out upper GI origin by EGD Antibody/reagent Block Slide Result (staining pattern) CK7 A1 Individual Positive CK20 A1 Individual Negative CDX2 A1 Individual Negative CA19.9 A1 Individual Negative CK19 A1 Individual Positive PSA A1 Individual Negative TTF-1 A1 Individual Negative ANTONIO A1 Individual Negative Calretinin A1 Individual Rare focally positive D240 A1 Individual Negative CK5/6 A1 Individual Negative He also had large ascites and ascites fluid drained during last visit around 07/2016. Fluid showed atypical cells Past Med Surg Social Fam HX - Past Medical History Medical history: cancer, hypertension, other Psychiatric history: no psych history - Past Surgical History Surgical History: no surgical history - Social History Smoking Status: Never smoker Smokeless Tobacco Status: No Alcohol use: none Drug use: none - Family History Father Living Status: Hx Family Cardiac Disorders: Yes ([place] at age 52) Mother Living Status: Hx Family Cardiac Disorders: No Hx Family Cancer: No Brother Hx Family Cancer: Yes (Lung cancer) Sister Hx Family Cancer: Yes (Lung cancer) Medications and Allergies Gabapentin [Neurontin] 600 - 1,200 mg PO TID 08/10/16 [History] Lisinopril [Zestril] 5 mg PO DAILY 08/10/16 [History] Ferrous Gluconate 324 mg PO DAILY 12/14/16 [History] Oxycodone HCl [Roxicodone 30 MG Immed Release] 30 - 60 mg PO Q4H 12/14/16 [ History] Polyethylene Glycol 3350 [MiraLAX] 17 gm PO QPM 12/14/16 [History] Furosemide [Lasix] 20 mg PO DAILY 12/25/16 [History] Omeprazole [PriLOSEC] 20 mg PO BIDAC #30 cap 12/25/16 [Rx] Ondansetron HCl [Zofran] 4 mg PO Q4H PRN #30 tablet 12/25/16 [Rx] Prochlorperazine Maleate [Compazine] 10 mg PO Q6H PRN #30 tablet 12/25/16 [Rx] Spironolactone [Aldactone] 50 mg PO DAILY 12/25/16 [History] OxyCODONE ER (12 HR) [OxyCONTIN] 40 mg PO TID PRN 01/01/17 [History] Promethazine [Phenergan] 25 mg PO Q6HR #10 tablet 01/01/17 [Rx] Promethazine [Phenergan] 25 mg RC Q6HR #10 supp.rect 01/01/17 [Rx] 3 Allergy/AdvReac Type Severity Reaction Status Date / Time morphine Allergy Rash Verified 01/02/17 06:25 Review of systems: Continue having increased nausea. Abdominal distention. Severe abdominal Tenderness. Right sixth/seventh rib area pain. Bilateral lower extremity edema 2+ Oncology - Exam - Constitutional Vitals: Temp Pulse Resp BP Pulse Ox 98.0 F 75 16 206/105 95 01/03/17 15:02 01/03/17 15:02 01/03/17 15:02 01/03/17 15:02 01/03/17 15:02 Exam: Lungs air entry decreased both bases. Heart S1-S2 regular rate rhythm. Abdominal exam limited because of amount of tenderness. Extremities 2+ edema Oncology - Results Labs: Short CBC 01/03/17 Range/Units 03:32 WBC 7.0 (4.3-11.1) K/mcL Hgb 13.2 D (12.9-16.9) g/dL Hct 41.7 (37.5-50.1) % Plt Count 151 (140-400) K/mcL Neutrophils # 5.9 (1.6-8.9) K/mcL Consult Discharge Plan - Plan Referrals: Chandler Clark MD [Primary Care Provider] -
[2017-01-03] MEDS: *HR* HYDROmorphone 20 MG/20 ML PCA IVC PRN (17:00)
[2017-01-03] MEDS: Levofloxacin 750 MG/150 ML 750 MG/150 ML BAG IVPB SCH (17:43)
[2017-01-03] MEDS: *HR* Enoxaparin 100 MG/ML SYRINGE SQ SCH (17:44)
[2017-01-03 17:56] LABS: Adenovirus Not Detected (Not Detect); Bordetella Pertussis Not Detected (Not Detect); Chlamydophila pneumoniae Not Detected (Not Detect); Coronavirus 229E Not Detected (Not Detect); Coronavirus HKU1 Not Detected (Not Detect); Coronavirus NL63 Not Detected (Not Detect); Coronavirus OC43 Not Detected (Not Detect); Human Metapneumovirus Not Detected (Not Detect); Human Rhinovirus/Enterovirus Not Detected (Not Detect); Influenza A Subtype 2009 H1 Not Detected (Not Detect); Influenza A Untypeable Not Detected (Not Detect); Influenza B Not Detected (Not Detect); Mycoplasma pneumoniae Not Detected (Not Detect); Parainfluenza Virus 1 Not Detected (Not Detect); Parainfluenza Virus 2 Not Detected (Not Detect); Parainfluenza Virus 3 Not Detected (Not Detect); Parainfluenza Virus 4 Not Detected (Not Detect); Respiratory Syncytial Virus Not Detected (Not Detect)
[2017-01-04] MEDS: *HR* Promethazine 25 MG/ML VIAL IVP SCH ×8 (00:01→23:44)
[2017-01-04] MEDS: MetroNIDAZOLE 500 MG/100 ML 500 MG/100 ML BAG IVPB SCH ×4 (00:01→23:43)
[2017-01-04] MEDS: Ondansetron 4 MG/2 ML VIAL IVP SCH ×6 (01:57→22:02)
[2017-01-04] MEDS: D5% in 0.9% NACL 1,000 ML IVC SCH ×2 (02:01→20:36)
[2017-01-04] MEDS: Levofloxacin 750 MG/150 ML 750 MG/150 ML BAG IVPB SCH (08:11)
--- NOTE | 2017-01-04 08:18 | Pain Management History & Phys ---
Date of Encounter: 01/05/17 Time of Encounter: 07:10 Assessment and Plan (1) Abdominal pain Current Visit: Yes Status: Acute The assessment and plan as outlined above was discussed with the patient and/or family members who expressed understanding and agreement. All questions were answered. In discussion with the nurse practitioner previously, it was determined that the patient will be placed on Dilaudid CAR MANAGER 0.5 mg every 10 minutes. The patient appears to be responding really well to this regimen with little to no side effects. This is equated to approximately 3 mg an hour. I have dissuaded away from continuous IV infusion on the floor, and should the patient become more acute and refractory to the patient's current IV Dilaudid, then ICU stay would be warranted for intravenous infusion on a continuous basis. I would consider a lockout., But his dosing requirements appear to be within reasonable safety limits at this time. Would maintain oxygen level above 92% with nasal cannula as needed and would set oxygen alarms at the nurse's station. I will follow along with the primary team. Qualifiers: Abdominal location: generalized Qualified Code(s): R10.84 - Generalized abdominal pain History of Present Illness Chief complaint: Abdominal pain HPI: Mr. Jade is a 61 year old male With a recent history of diagnosis of pancreatic cancer with metastasis. The patient has significant onset abdominal pain and nausea over the last few days that created a situation where he is unable to keep his pain medication down. Patient currently takes oxycodone immediate release 30 mg throughout the day. The patient has severe aching epigastric pain and bloating. Patient is having no adverse effects with the medications. Previously the patient was controlled until this acute episode. Currently admitted to the hospital through the emergency room and his current nausea symptoms are refractory to treatment with Phenergan or Zofran. Past Med Surg Social Fam HX - Past Medical History Medical history: cancer, hypertension, other Psychiatric history: no psych history - Past Surgical History Surgical History: no surgical history - Social History Smoking Status: Never smoker Smokeless Tobacco Status: No Alcohol use: none Drug use: none - Family History Father Living Status: Hx Family Cardiac Disorders: Yes ([place] at age 52) Mother Living Status: Hx Family Cardiac Disorders: No Hx Family Cancer: No Brother Hx Family Cancer: Yes (Lung cancer) Sister Hx Family Cancer: Yes (Lung cancer) Medications and Allergies Gabapentin [Neurontin] 600 - 1,200 mg PO TID 08/10/16 [History] Lisinopril [Zestril] 5 mg PO DAILY 08/10/16 [History] Ferrous Gluconate 324 mg PO DAILY 12/14/16 [History] Polyethylene Glycol 3350 [MiraLAX] 17 gm PO QPM 12/14/16 [History] Furosemide [Lasix] 20 mg PO DAILY 12/25/16 [History] Spironolactone [Aldactone] 50 mg PO DAILY 12/25/16 [History] Promethazine [Phenergan] 25 mg PO Q6HR #10 tablet 01/01/17 [Rx] Promethazine [Phenergan] 25 mg RC Q6HR #10 supp.rect 01/01/17 [Rx] Dexamethasone [Decadron] 10 mg IVP DAILY vial 01/05/17 [Rx] Enoxaparin [Lovenox] 90 mg SQ Q12H syringe 01/05/17 [Rx] HYDROmorphone (PF) [Dilaudid] 1 mg IVP Q2H PRN syringe 01/05/17 [Rx] HYDROmorphone 20 MG/20 ML CAR MANAGER [Dilaudid 20 MG/20 ML CAR MANAGER] 1 each IVC PROTOCOL PRN rehabilitation supervisor.vial 01/05/17 [Rx] LORazepam [Ativan] 0.5 mg IVP Q6HR vial 01/05/17 [Rx] Metoclopramide [Reglan] 10 mg IVP Q6H vial 01/05/17 [Rx] Metoprolol [Lopressor] 5 mg IVP Q6HR vial 01/05/17 [Rx] Naloxone [Narcan] 0.4 mg IVP Q2MIN PRN inj 01/05/17 [Rx] Ondansetron [Zofran] 4 mg IVP Q4H PRN vial 01/05/17 [Rx] OxyCODONE Oral Soln [OxyCODONE ORAL SOLN] 30 mg PO Q4H PRN ud.liq 01/05/17 [Rx] 3 Allergy/AdvReac Type Severity Reaction Status Date / Time morphine Allergy Rash Verified 01/02/17 06:25 Review of Systems - Constitutional Constitutional ROS IM: no photophobia, no phonophobia, no daytime sleepiness, no fever(s), no stops breathing during sleep - Cardiovascular Cardiovascular ROS: no chest pain, no leg edema, no lightheadedness - Respiratory Respiratory: as per HPI (Mild shortness of breath) - Gastrointestinal Gastrointestinal: abdominal pain - Musculoskeletal Musculoskeletal ROS: no muscle weakness, no numbness, no radiating pain into limb, no tingling - Integumentary Integumentary: no erythema, no lesions, no swelling - Neurological Neurological ROS: no abnormal gait, no behavioral changes, no focal weakness, no radicular pain - Psychiatric Psychiatric general: no anxiety, no confusion, no depression - Hematologic/Lymphatic Hematologic/Lymphatic pediatric: no easy bleeding, no easy bruising Physical Exam Initial Vital Signs Temp Pulse Resp BP Pulse Ox 98.0 F 86 16 168/97 98 01/02/17 10:36 01/02/17 10:36 01/02/17 10:36 01/02/17 10:36 01/02/17 10:36 - General physical appearance General physical appearance: awake & oriented, moderate pain - Eyes Eye exam: normal ocular movement - ENT atraumatic, normocephalic - Neck trachea midline - Respiratory clear to auscultation - Cardiovascular Cardiovascular exam: Present: RRR, tachycardia - Abdomen Abdomen: tender, guarding, distended Results - Labs 01/03/17 03:32 Abnormal lab results MCV 77.2 fL (83.0-100.0) L 01/03/17 03:32 MCH 24.4 pg (28.0-33.3) L 01/03/17 03:32 RDW 14.6 % (11.5-14.5) H 01/03/17 03:32 All other labs normal.
[2017-01-04] MEDS ORDERED: Scopolamine Patch 1.5 MG PATCH.TD72 TD SCH (09:15)
--- NOTE | 2017-01-04 11:06 | Gastroenterology Consult Note ---
<Alexandrea Denney - Last Filed: 01/05/17 09:04> Date of Encounter: 01/05/17 Time of Encounter: 10:15 - Assessment and plan (1) Adenocarcinoma of unknown primary Current Visit: Yes Status: Acute Assessment and plan: Pt has metastatic adenocarcinoma primary unknown, likely pancreaticobiliary in origin. He has been seen by oncology but unable to make appointments to start chemo due to nausea and vomiting. He needs EGD to evaluate for esophageal vs gastric primary. (2) Nausea & vomiting Current Visit: Yes Status: Acute Assessment and plan: Proceed with EGD today. Continue scopalamine patch, zofran, phenergan and pepcid. Advance diet to clear liquids as tolerated. Qualifiers: Vomiting type: unspecified Vomiting Intractability: non-intractable Qualified Code(s): R11.2 - Nausea with vomiting, unspecified - Time Spent With Patient Total time spent is greater than 50% in coordination of care (as documented) at patient's floor/unit and/or counseling patient: GI History of Present Illness - Data of Consult Patient: known to practice within the last 3 years Consult date: 01/04/17 Requesting Physician: Tammy Castillo CNP - Consult Narrative Reason for consult: nausea and vomiting History of present illness: Mr. Jade is a 61 year old male who was recently diagnosed with metastatic adenocarcinoma unknown primary likely pancreaticobiliary in origin. He had a PET scan 12/30/2016 which showed Multiple liver metastasis. Multiple peritoneal deposits. Also PET active right sixth rib metastasis. He was seen in the office on 12/28/16 and was scheduled for outpatient EGD to evaluate for gastric malignancy. He presented from [facility] with nausea and vomiting. He describes 25-30 episodes of vomiting a day, he has not been able to eat, has been able to take sips of water. He also complains of abdominal pain and diarrhea. He denies bloody stools or emesis. Pain and nausea are only slightly better on IV pain meds and antiemetics. He has dry heaving during assessment. He denies fever or chills. He was seen by oncology but has not started chemotherapy as he was unable to go to outpatient appointment due to nausea and vomiting. He has also had abdominal ascites and is status post paracentesis x 2, cytology showed atypical cells and omentum biopsy showed metastatic adenocarcinoma. Hgb 13.2, CMP ordered. Colonoscopy: denies and refuses EGD: unsure NSAIDS/ASA: none Anticoagulants: none Past Med Surg Social Fam HX - Past Medical History Medical history: cancer, hypertension, other Psychiatric history: no psych history - Past Surgical History Surgical History: no surgical history - Social History Smoking Status: Never smoker Smokeless Tobacco Status: No Alcohol use: none Drug use: none - Family History Father Living Status: Hx Family Cardiac Disorders: Yes ([place] at age 52) Mother Living Status: Hx Family Cardiac Disorders: No Hx Family Cancer: No Brother Hx Family Cancer: Yes (Lung cancer) Sister Hx Family Cancer: Yes (Lung cancer) Review of Systems: GI: as per [facility] GENERAL: denies fever, or chills EYES: denies yellow discoloration ENT: denies pain with swallowing or difficulty swallowing CARDIO: denies chest pain, palpitations RESP: Shortness of breath with exertion : denies change in color of urine NEURO: admits to weakness HEME: Denies any bruising MS: chronic back and joint pain DERM: denies rash or itching PSYCH: history of anxiety or depression - Constitutional Vitals: Temp Pulse Resp BP Pulse Ox 98.3 F 83 17 179/95 97 01/04/17 07:00 01/04/17 07:00 01/04/17 07:00 01/04/17 07:00 01/04/17 07:00 Exam: CONSTITUTIONAL:~alert, no acute distress.~HEAD:~normocephalic.~EYES:~no jaundice.~NECK:~no obvious swelling.~HEART:~regular rate and rhythm, no murmurs. ~LUNGS:~fair air entry bilaterally.~ABDOMEN:~distended, very tender, some bruising noted from pericentesis site.~RECTAL EXAM:~Deferred.~EXTREMITIES:~2-3+ BLE edema, no clubbing or cyanosis.~SKIN:~no stigmata of chronic liver disease.~ NEUROLOGIC:~no obvious focal defect Results - Labs CBC & Chem 7: 01/03/17 03:32 Labs: Entire Visit Hgb 13.2 g/dL (12.9-16.9) D 01/03/17 03:32 Hct 41.7 % (37.5-50.1) 01/03/17 03:32 Consult Discharge Plan - Plan Additional Instructions: Patient to be discharged to hospice under the care of Dr. Goncalves. Patient will go to room 2A55 Referrals: Chandler Clark MD [Primary Care Provider] - <Vikki Palomo - Last Filed: 01/05/17 12:28> Date of Encounter: 01/04/17 Time of Encounter: 13:00 - Time Spent With Patient Total time spent is greater than 50% in coordination of care (as documented) at patient's floor/unit and/or counseling patient: GI History of Present Illness - Data of Consult Requesting Physician: Val Vital CNP - Consult Narrative History of present illness: Mr. Jade is a 61 year old male - Constitutional Vitals: Temp Pulse Resp BP Pulse Ox 98.2 F 73 14 179/91 94 01/05/17 11:55 01/05/17 11:55 01/05/17 11:55 01/05/17 11:55 01/05/17 11:55 Results - Labs CBC & Chem 7: 01/03/17 03:32 Labs: Entire Visit Hgb 13.2 g/dL (12.9-16.9) D 01/03/17 03:32 Hct 41.7 % (37.5-50.1) 01/03/17 03:32 - Attending Attestation I examined this patient and my medical decision-making was reviewed with the Resident Physician. I agree with the documented findings, disposition and treatment plan as described except to the extent set forth below.
[2017-01-04] MEDS: Famotidine 20 MG/2 ML VIAL IVP SCH (12:22)
[2017-01-04] MEDS ORDERED: *HR* Propofol 200 MG/20 ML VIAL IVP ONE (12:29)
--- NOTE | 2017-01-04 13:13 | Anesthesia Evaluation PreOp ---
Date of Encounter: 01/04/17 Time of Encounter: 13:14 - Past History Planned Operation: EGD Cardiac History: HTN Pulmonary History: Denies Any Significant HX INNOVATION ANALYST History: Denies Any Significant HX Other Medical History: Other (metastatic pancreatic CA, H/O DVT) Anesthesia History: No Prior Anesthetic Complications, Past Anesthesia Alcohol Use: none Drug use: none Medications and Allergies Gabapentin [Neurontin] 600 - 1,200 mg PO TID 08/10/16 [History] Lisinopril [Zestril] 5 mg PO DAILY 08/10/16 [History] Ferrous Gluconate 324 mg PO DAILY 12/14/16 [History] Oxycodone HCl [Roxicodone 30 MG Immed Release] 30 - 60 mg PO Q4H 12/14/16 [ History] Polyethylene Glycol 3350 [MiraLAX] 17 gm PO QPM 12/14/16 [History] Furosemide [Lasix] 20 mg PO DAILY 12/25/16 [History] Omeprazole [PriLOSEC] 20 mg PO BIDAC #30 cap 12/25/16 [Rx] Ondansetron HCl [Zofran] 4 mg PO Q4H PRN #30 tablet 12/25/16 [Rx] Prochlorperazine Maleate [Compazine] 10 mg PO Q6H PRN #30 tablet 12/25/16 [Rx] Spironolactone [Aldactone] 50 mg PO DAILY 12/25/16 [History] OxyCODONE ER (12 HR) [OxyCONTIN] 40 mg PO TID PRN 01/01/17 [History] Promethazine [Phenergan] 25 mg PO Q6HR #10 tablet 01/01/17 [Rx] Promethazine [Phenergan] 25 mg RC Q6HR #10 supp.rect 01/01/17 [Rx] 3 Allergy/AdvReac Type Severity Reaction Status Date / Time morphine Allergy Rash Verified 01/02/17 06:25 - Meds/Allergy Pre-op Review Medications Reviewed: Yes Allergies Reviewed: Yes Beta Blockers on Current Med List: Yes If Beta Blockers taken, Date/Time (Last Dose taken): 01/03/2017 at 1745 Anesthesia Results - Labs 01/03/17 03:32 - Imaging EKG: report reviewed (12/17/2016 SINUS RHYTHM Poor R wave progression) Additional studies: 11/26/2016 Echo Impressions: LVEF 60%. Normal LV chamber size, wall thickness and function. Mild left ventricular diastolic dysfunction. Normal right ventricular structure and function. Moderate to severely dilated left atrium. Mildly calcified aortic valve leaflets. Mild-moderate aortic regurgitation. Mild aortic stenosis. Mild tricuspid regurgitation. Mild pulmonary hypertension. Anesthesia Exam Vital Signs/O2 Sat, Most Current Temp Pulse Resp BP Pulse Ox 98.7 F 93 18 178/101 95 01/04/17 13:09 01/04/17 13:09 01/04/17 13:09 01/04/17 13:09 01/04/17 13:09 Height: 6'/1.83 m Weight: 214 lbs/97.25 kg NPO (# of Hours): 8 Pain Scale: 6 (abdomen) Pain Scale Used: Numeric (1 - 10) - HEENT Pupil (Motor): EOMI Mallampati: II Teeth: Normal, Missing Oral Opening: Greater than 3 - INNOVATION ANALYST LOC: Oriented INNOVATION ANALYST Motor: Normal RUE, Normal LUE, Normal RLE, Normal LLE, Normal Face INNOVATION ANALYST Sensory: Normal: RUE, LUE, RLE, LLE, Face - Cardiac Rhythm: Regular Murmur: None - Pulmonary Breath Sounds: bilateral Clear Respiratory Effort: Symmetrical Anesthesia Assess/Plan ASA Score: 3 Modified Rock Scale for Level of Consciousness: Cooperative, oriented, and tranquil Anesthetic Plan: MAC Monitoring Plan: Standard Monitors
--- NOTE | 2017-01-04 14:09 | Palliative - Consult Note ---
<Joe Cabrera - Last Filed: 01/04/17 15:13> Date of Encounter: 01/04/17 Time of Encounter: 14:07 - Assessment and Plan (1) Pancreatic cancer metastasized to liver Current Visit: Yes Status: Acute Assessment and plan: Metastatic adenocarcinoma with unknown primary likley pancreaticobiliary in origin -metastasis to bone: will start patient on decadron to decrease inflammation which will help his pain. EGD: normal esopagus, gastritis (biopsied), normal duodenum awaiting pathology results prognosis is poor patient not interested in chemotherapy and considering hospice due to patient sedated due to anesthesia fro EGD unable to further converse on patients goals of care (2) Nausea & vomiting Current Visit: Yes Status: Acute Assessment and plan: family reports patient continue to have N/V on compazine, promethazine, zofran, scopolamine patient may benefit from Reglan fore better control of N/V anticipatory nausea: Ativan scheduled may have ice chips and sips of water. Qualifiers: Vomiting type: unspecified Vomiting Intractability: non-intractable Qualified Code(s): R11.2 - Nausea with vomiting, unspecified (3) Abdominal pain Current Visit: Yes Status: Acute Assessment and plan: 2nd to metastatic adenocarcinoma on dilauded [employer] FI[employer] INSPECTOR pump: has use 14.5mg since initiation also on dilauded 1mg Q2H PRN plan: will change dilauded to 1mg Q1H prn. Qualifiers: Abdominal location: generalized Qualified Code(s): R10.84 - Generalized abdominal pain (4) DVT (deep venous thrombosis) Current Visit: Yes Status: Acute Assessment and plan: currently on therapeutic Lovenox management as per primary team Qualifiers: DVT location: lower extremity Affected thrombotic vein of extremity: other lower extremity vein Chronicity: acute Laterality: right Qualified Code(s) : I82.491 - Acute embolism and thrombosis of other specified deep vein of right lower extremity (5) Aspiration pneumonia Current Visit: Yes Status: Suspected Assessment and plan: suspected on levaquin and metronidazole as per primary team Qualifiers: Aspiration pneumonia type: unspecified Laterality: unspecified laterality Lung location: unspecified part of lung Qualified Code(s): J69.0 - Pneumonitis due to inhalation of food and vomit (6) Goals of care, counseling/discussion Current Visit: Yes Status: Acute Assessment and plan: Able to have conversation with family (daughter and ). Patient does not want chemotherapy plus is likely not eligible if primary tumor is of pacreaticobiliary in origin. Family was interested in prognosis and realize that mortality rate is high at 6 months. Family would like focus on comfort. Unable to have this conversation whit patient as he was sedated 2nd to anesthesia. Palliative-CN HPI - Data of Consult Patient: new to practice Consult date: 01/04/17 Requesting Physician: Tammy Castillo CNP Primary Care Provider: Chandler Clark - Consult Narrative Palliative Care/Comfort Measures: Hospice care Reason for consult: pancreatic cancer patient considering hospice History of present illness: Mr. Jade is a 61 year old male with recently diagnosed metastatic andenocarcinoma unknown primary but likely pacreaticobiliary in origin presented to [facility] and then transferred to [place] for evaluation of nausea and vomiting. Oncology states patient has poor prognosis and is not candidate for chemotherapy. Patient also does not want chemotherapy and is considering hospice. Patient has over 20 bouts of vomiting before admission. He continues to have nausea and vomiting while being treated with compazine, phenergan, zofran, scopolamine. Patient underwent EGD today to rule out gastric or esophageal primary. There was no tumor reported on EGD report and biopsies were taken. Patient was started on Dilauded COMM[employer] FIELD INSPECTOR pump by pain management as well as being on dilauded 1mg IVP Q2h prn. Unable to get history from patient due to sedation 2nd to anethesia from EGD. Had conversation with patients family including daughter and . They report patient's abdominal pain better controlled with COMM[employer]CIAL FIELD INSPECTOR pump. He continues to have N /V despite treatment. He is afraid to drink sips of water due to worsening nasuea and thought of food makes his nausea worse. Patient is currently able to eat ice chips. CC: Tammy Castillo CNP Past Med Surg Social Fam HX - Past Medical History Medical history: cancer, hypertension, other Psychiatric history: no psych history - Past Surgical History Surgical History: no surgical history - Social History Smoking Status: Never smoker Smokeless Tobacco Status: No Alcohol use: none Drug use: none - Family History Father Living Status: Hx Family Cardiac Disorders: Yes (AK at age 52) Mother Living Status: Hx Family Cardiac Disorders: No Hx Family Cancer: No Brother Hx Family Cancer: Yes (Lung cancer) Sister Hx Family Cancer: Yes (Lung cancer) Medications and Allergies Gabapentin [Neurontin] 600 - 1,200 mg PO TID 08/10/16 [History] Lisinopril [Zestril] 5 mg PO DAILY 08/10/16 [History] Ferrous Gluconate 324 mg PO DAILY 12/14/16 [History] Oxycodone HCl [Roxicodone 30 MG Immed Release] 30 - 60 mg PO Q4H 12/14/16 [ History] Polyethylene Glycol 3350 [MiraLAX] 17 gm PO QPM 12/14/16 [History] Furosemide [Lasix] 20 mg PO DAILY 12/25/16 [History] Omeprazole [PriLOSEC] 20 mg PO BIDAC #30 cap 12/25/16 [Rx] Ondansetron HCl [Zofran] 4 mg PO Q4H PRN #30 tablet 12/25/16 [Rx] Prochlorperazine Maleate [Compazine] 10 mg PO Q6H PRN #30 tablet 12/25/16 [Rx] Spironolactone [Aldactone] 50 mg PO DAILY 12/25/16 [History] OxyCODONE ER (12 HR) [OxyCONTIN] 40 mg PO TID PRN 01/01/17 [History] Promethazine [Phenergan] 25 mg PO Q6HR #10 tablet 01/01/17 [Rx] Promethazine [Phenergan] 25 mg RC Q6HR #10 supp.rect 01/01/17 [Rx] 3 Allergy/AdvReac Type Severity Reaction Status Date / Time morphine Allergy Rash Verified 01/02/17 06:25 ROS unobtainable: due to mental status (s/p EGD sedated due to anesthesia ) Palliative Care-Exam - Constitutional Vitals: Temp Pulse Resp BP Pulse Ox 98.7 F 93 18 178/101 95 01/04/17 13:09 01/04/17 13:09 01/04/17 13:09 01/04/17 13:09 01/04/17 13:09 General appearance: Present: mild distress Exam: sedated. - Head Head Exam: Present: normal inspection - ENT ENT exam: Present: mucous membranes dry - Expanded ENT Exam Mouth Exam: Present: dry mucosa, muffled voice (2nd to sedation ). Absent: drooling (d) - Respiratory Respiratory exam: Present: CTAB (anteriorly ) - Cardiovascular Cardiovascular exam: Present: RRR, +S1, +S2 - GI/Abdominal Exam GI/Abdominal exam: Present: distended, normal bowel sounds - Expanded GI/Abdominal Exam GI/Abdominal exam: Present: ascites - Extremities Exam Extremities exam: Present: pedal edema (1+) - Neurological Exam Additional comments: unable to complete due to sedation 2nd to anesthesia - Psychiatric Psychiatric exam: Absent: agitated, anxious Additional comments: sedated 2nd to anesthesia - Skin Skin exam: Present: dry, intact Internal Medicine - CN: Reslt - Labs CBC & Chem 7: 01/03/17 03:32 Consult Discharge Plan - Plan Referrals: Chandler Clark MD [Primary Care Provider] - Palliative Quality Palliative Quality: Screen for Code Status: Yes, Screen for Goals of Care: Yes, Screen for Pain: Yes, If Pain Regimen Started, Initiate Bowel Regimen: Yes, Screen for Nausea/Vomitting: Yes Code Status: 01/02/17 11:13 Resuscitation Status: Active [RES] Routine Comment: Patient stated to me he wants no CPR or ventilator Resuscitation Status: [id number] <Santino Goncalves - Last Filed: 01/04/17 15:36> Date of Encounter: 01/04/17 Palliative-CN HPI - Data of Consult Requesting Physician: Tammy Castillo CNP Primary Care Provider: Chandler Clark - Consult Narrative History of present illness: Mr. Jade is a 61 year old male CC: Tammy Castillo CNP Palliative Care-Exam - Constitutional Vitals: Temp Pulse Resp BP Pulse Ox 98.7 F 93 18 178/101 95 01/04/17 13:09 01/04/17 13:09 01/04/17 13:09 01/04/17 13:09 01/04/17 13:09 Internal Medicine - CN: Reslt - Labs CBC & Chem 7: 01/03/17 03:32 - Attending Attestation I examined this patient and my medical decision-making was reviewed with the Resident Physician. I agree with the documented findings, disposition and treatment plan as described except to the extent set forth below. Palliative Quality Code Status: 01/02/17 11:13 Resuscitation Status: Active [RES] Routine Comment: Patient stated to me he wants no CPR or ventilator Resuscitation Status: [id number]
[2017-01-04] MEDS: Dexamethasone 4 MG/ML VIAL IVP SCH (16:50)
[2017-01-04] MEDS: *HR* LORazepam 2 MG/ML VIAL IVP SCH ×3 (16:50→23:48)
[2017-01-04] MEDS: *HR* Enoxaparin 100 MG/ML SYRINGE SQ SCH ×2 (16:51→19:16)
--- NOTE | 2017-01-04 17:35 | Internal Med Progress Note ---
Date of Encounter: 01/04/17 Time of Encounter: 08:15 - Assessment and plan (1) Pancreatic cancer metastasized to liver Current Visit: Yes Status: Acute Assessment and plan: Almas Jade is a 61-year-old male with past medical history meta- pancreatic cancer, chronic back pain and hypertension who presented to [facility] on 01/01/2017 with complaints of nausea, vomiting and uncontrolled pain. He was admitted for further workup and treatment. 1. Metastatic pancreatic cancer: Recently diagnosed. Follows with Dr. Howe. Per chart review, malignancy is aggressive is rapidly progressing. Repeat abdominal CT with progression of peritoneal carcinomatosis, demonstration of known liver and intrapulmonary metastatic disease. CT also showed enlargement of osseous bone lesion invading the seventh right rib. 2016 EGD with normal esopagus, gastritis and normal duodenum. STOCK CUTTER, Decadron for Pain control. Palliative Care, oncology and pain management following. 2. Intractable nausea and vomiting: For 5 days prior to admission. Patient reports not being able to keep anything down including pain medicine. Abdominal CT with evidence of disease progression but without obstruction. On scheduled Phenergan and Zofran. Reglan and Ativan with anticipatory nausea. Okay for sips of H2O and ice chips. Palliative care following. 3. DVT: 01/03/2017 with acute DVT in the right peroneal vein and right calf. Full dose Lovenox. 4. Aspiration pneumonia: suspected. ABD CT with bilateral lobe consolidation, concerning for possible aspiration pneumonia. Afebrile, no elevated white count. Respiratory PCR, urinary antigens negative. Cont Levaquin, Flagyl. 5. Chronic back pain: Per history. OAARS reviewed on 01/03/2017 and patient is taking 40 mg of OxyContin 3 times a day and 30 mg OxyIR every 3 hours as needed for pain at home. Patient reports he has not been taking the OxyContin as it has made him nauseated. Now with significant, uncontrolled pain. Unable to tolerate pain medicine with nausea and vomiting. STOCK CUTTER for pain control. Pain Management following 6. Essential hypertension: per hx. Now with Hypertensive Urgency with SBPs greater than 180; secondary to not being able to take BP medications and uncontrolled pain. Schedule IV antihypertensives. 7. Code status: DNR-CCA/DNI. He is declining chemotherapy and considering hospice. Poor prognosis. Palliative care consulted, if appropriate transfer to inpatient hospice. (2) Intractable nausea and vomiting Current Visit: Yes Status: Acute Qualifiers: Vomiting type: unspecified Qualified Code(s): R11.2 - Nausea with vomiting , unspecified (3) Chronic thoracic back pain Current Visit: No Status: Chronic Qualifiers: Back pain laterality: bilateral Qualified Code(s): M54.6 - Pain in thoracic spine; G89.29 - Other chronic pain; G89.29 - Other chronic pain (4) SBP (spontaneous bacterial peritonitis) Current Visit: No Status: Acute (5) DVT prophylaxis Current Visit: No Status: Acute - Subjective Interval history: Seen and examined at bedside. He appears significantly improved from yesterday. Still in pain and nauseated but greatly improved with STOCK CUTTER and increasing nausea medication. Family at bedside and updated. Plan for EGD today. Patient and family are receptive to palliative care and hospice consult. - Constitutional Vitals: Temp Pulse Resp BP Pulse Ox 98.1 F 97 17 157/101 93 01/04/17 16:59 01/04/17 16:59 01/04/17 16:59 01/04/17 16:59 01/04/17 16:59 General appearance: Present: A&O X 3 - Head Head exam: Present: atraumatic, normocephalic - Eye Eye exam: Present: PERRL, conjuntiva pink, sclera anicteric Pupils: Present: PERRL - Neck Neck exam general surgery: Present: supple, trachea midline. Absent: lymphadenopathy - Respiratory Respiratory exam: Present: CTAB. Absent: accessory muscle use, rales, rhonchi, wheezes - Cardiovascular Cardiovascular exam: Present: RRR, +S1, +S2. Absent: diastolic murmur, gallop, rubs, systolic murmur - GI/Abdominal GI/Abdominal exam: Present: diminished bowel sounds, distended, firm, normal bowel sounds, soft, tenderness, no peritoneal signs - Extremities Exam Extremities exam: Present: warm, radial pulses palpable and symmetrical. Absent : calf tenderness, cyanotic, pedal edema - Neurological Exam Neurological exam: Present: CN II-XII intact, oriented X3, no focal deficits. Absent: pronater drift, facial droop, speech deficit - Skin Skin exam: Present: dry, intact Internal Medicine: Result - Labs CBC & Chem 7: 01/03/17 03:32 Consult Discharge Plan - Plan Referrals: Chandler Clark MD [Primary Care Provider] -
[2017-01-04] MEDS: Metoclopramide 10 MG/2 ML VIAL IVP SCH ×2 (18:45→20:38)
[2017-01-04] MEDS: *HR* Metoprolol 5 MG/5 ML VIAL IVP SCH ×2 (19:16→23:51)
[2017-01-04] MEDS: Pantoprazole 40 MG VIAL IVP SCH (19:16)
[2017-01-04] MEDS: *HR* HYDROmorphone 20 MG/20 ML PCA IVC PRN (20:38)
[2017-01-05] MEDS: Ondansetron 4 MG/2 ML VIAL IVP SCH ×3 (02:15→09:10)
[2017-01-05] MEDS: Metoclopramide 10 MG/2 ML VIAL IVP SCH ×2 (02:19→09:09)
[2017-01-05] MEDS: *HR* Promethazine 25 MG/ML VIAL IVP SCH ×3 (04:26→11:33)
[2017-01-05] MEDS: *HR* LORazepam 2 MG/ML VIAL IVP SCH ×2 (05:52→09:02)
[2017-01-05] MEDS: Pantoprazole 40 MG VIAL IVP SCH (06:00)
[2017-01-05] MEDS: *HR* Metoprolol 5 MG/5 ML VIAL IVP SCH ×2 (06:01→11:33)
[2017-01-05] MEDS: *HR* Enoxaparin 100 MG/ML SYRINGE SQ SCH (06:05)
--- NOTE | 2017-01-05 08:52 | Palliative Progress Note ---
<Joe Cabrera - Last Filed: 01/05/17 10:50> Date of Encounter: 01/05/17 Time of Encounter: 08:50 - Assessment and plan (1) Pancreatic cancer metastasized to liver Current Visit: Yes Status: Acute Assessment and plan: Metastatic adenocarcinoma with unknown primary 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 Biopsies pending. We will have meeting with family today discussions of goals of care. Patient is not interested in chemotherapy and is considering hospice. (2) Nausea & vomiting Current Visit: Yes Status: Acute Assessment and plan: Improved. Patient was started on Ativan for anticipatory nausea and also Reglan. -Patient was confused this morning was likely secondary to addition of new medications including Reglan and Ativan. We have decreased the dose of Ativan 0.5 mg four times a day. Scopolamine as discontinued Zofran and Phenergan are changed when necessary. Currently we will continue IV fluids. We will also test the patient can tolerate ice chips and sips of water. She is able to then we can advance his diet. Qualifiers: Vomiting type: unspecified Vomiting Intractability: non-intractable Qualified Code(s): R11.2 - Nausea with vomiting, unspecified (3) Abdominal pain Current Visit: Yes Status: Acute Assessment and plan: Secondary to pancreatic cancer patient was arching his back, appeared agitated as morning. Patient is using a milligram of Dilaudid an hour via [employer]ATE [employer]TER and also has breakthrough continue current regimen: will consider changing once patient is less confused. Qualifiers: Abdominal location: generalized Qualified Code(s): R10.84 - Generalized abdominal pain (4) DVT (deep venous thrombosis) Current Visit: Yes Status: Acute Assessment and plan: on lovenox as per primary Qualifiers: DVT location: lower extremity Affected thrombotic vein of extremity: other lower extremity vein Chronicity: acute Laterality: right Qualified Code(s) : I82.491 - Acute embolism and thrombosis of other specified deep vein of right lower extremity (5) Aspiration pneumonia Current Visit: Yes Status: Suspected Assessment and plan: on levaquin and metronidazole as per primary Qualifiers: Aspiration pneumonia type: unspecified Laterality: unspecified laterality Lung location: unspecified part of lung Qualified Code(s): J69.0 - Pneumonitis due to inhalation of food and vomit (6) Goals of care, counseling/discussion Current Visit: Yes Status: Acute Assessment and plan: Able to have conversation with family (daughter and ). Patient does not want chemotherapy plus is likely not eligible if primary tumor is of pacreaticobiliary in origin. Family was interested in prognosis and realize that mortality rate is high at 6 months. Family would like focus on comfort. family meeting today for further discussion. - Time Spent With Patient Total time spent is greater than 50% in coordination of care (as documented) at patient's floor/unit and/or counseling patient: - Subjective Interval history: Patient is confused this morning, mumbling. Nurse reports he was trying to get out of bed last night. He also appears uncomfortable, arching back, agitated. Reports continued abdominal pain and nausea. - Constitutional Vitals: Abnormal lab results MCV 77.2 fL (83.0-100.0) L 01/03/17 03:32 MCH 24.4 pg (28.0-33.3) L 01/03/17 03:32 RDW 14.6 % (11.5-14.5) H 01/03/17 03:32 General appearance: Present: mild distress - Respiratory Respiratory exam: Present: CTAB - Cardiovascular Cardiovascular exam: Present: RRR, +S1, +S2 - GI/Abdominal GI/Abdominal exam: Present: distended, normal bowel sounds, soft, tenderness ( epigastric) - Extremities Exam Extremities exam: Present: pedal edema (1+) - Neurological Exam Neurological exam: Present: alert, oriented X3 (self and place) - Expanded Neurological Exam Coma Scale Eye Opening: Spontaneous Coma Scale Motor Response: Obeys Commands Coma Scale Verbal Response: Confused Coma Scale Total: 14 - Psychiatric Psychiatric exam: Present: agitated, anxious Palliative Quality Palliative Quality: Screen for Code Status: Yes, Screen for Goals of Care: Yes, Screen for Pain: Yes, If Pain Regimen Started, Initiate Bowel Regimen: Yes, Screen for Nausea/Vomitting: Yes Code Status: 01/02/17 11:13 Resuscitation Status: Active [RES] Routine Comment: Patient stated to me he wants no CPR or ventilator Resuscitation Status: [id number] - Labs CBC & Chem 7: 01/03/17 03:32 Consult Discharge Plan - Plan Referrals: Chandler Clark MD [Primary Care Provider] - <Santino Goncalves - Last Filed: 01/05/17 11:59> Date of Encounter: 01/05/17 - Time Spent With Patient Total time spent is greater than 50% in coordination of care (as documented) at patient's floor/unit and/or counseling patient: - Constitutional Vitals: Abnormal lab results MCV 77.2 fL (83.0-100.0) L 01/03/17 03:32 MCH 24.4 pg (28.0-33.3) L 01/03/17 03:32 RDW 14.6 % (11.5-14.5) H 01/03/17 03:32 - Attending Attestation I examined this patient and my medical decision-making was reviewed with the Resident Physician. I agree with the documented findings, disposition and treatment plan as described except to the extent set forth below. ppt will go to [facility] today for symptom mgt of paina nd nausea/ vomiting. will stop all other meds dnr cc Palliative Quality Code Status: 01/02/17 11:13 Resuscitation Status: Active [RES] Routine Comment: Patient stated to me he wants no CPR or ventilator Resuscitation Status: [id number] - Labs CBC & Chem 7: 01/03/17 03:32
[2017-01-05] MEDS: Dexamethasone 4 MG/ML VIAL IVP SCH (09:10)
[2017-01-05] MEDS: Levofloxacin 750 MG/150 ML 750 MG/150 ML BAG IVPB SCH (09:11)
[2017-01-05] MEDS: MetroNIDAZOLE 500 MG/100 ML 500 MG/100 ML BAG IVPB SCH (09:12)
[2017-01-05] MEDS ORDERED: *HR* LORazepam 2 MG/ML VIAL IVP SCH (09:12)
[2017-01-05 11:56] VITALS: BP 179/91
[2017-01-05] MEDS ORDERED: *HR* Promethazine 25 MG/ML VIAL IVP PRN (11:56)
[2017-01-05] MEDS ORDERED: Ondansetron 4 MG/2 ML VIAL IVP PRN (11:56)
--- NOTE | 2017-01-05 11:59 | Discharge Summary ---
Date of Encounter: 01/05/17 Time of Encounter: 09:15 - Discharge Diagnosis (1) Pancreatic cancer metastasized to liver Priority: Primary Status: Acute Comments: Patient recently diagnosed and follows with cancer center here. Per chart review this cancer is aggressive and rapidly progressing and oncology does not feel he is a good candidate for chemotherapy. Repeat abdominal CT with progression of peritoneal carcinomatosis, as well as demonstration of known liver and intrapulmonary metastatic disease. There is also enlargement of the osseous bone lesion invading the seventh right rib. Patient had an EGD on 01/04 to investigate possible causes of nausea or vomiting: normal esophagus, gastritis, and normal duodenum were noted. Patient has been evaluated by palliative care and has decided to be discharged and will be admitted hospice. (2) Liver metastasis Priority: Secondary Status: Acute Comments: Acute. Per CT. (3) Lung nodules Priority: Secondary Status: Acute Comments: Per CT. (4) HTN (hypertension) Priority: Secondary Status: Chronic Comments: Chronic. Blood pressure remains elevated. No change in medications at this time. Continue to monitor after discharge per hospice protocol. Qualifiers: Hypertension type: essential hypertension Qualified Code(s): I10 - Essential (primary) hypertension (5) Ascites Priority: Secondary Status: Acute Comments: Patient with moderate abdominal distention, roundness. Abdomen is soft and nontender. Bowel sounds are heard. Patient will be admitted to hospice, further evaluation or paracentesis if warranted. Qualifiers: Ascites type: malignant Qualified Code(s): R18.0 - Malignant ascites (6) Nausea & vomiting Priority: Secondary Status: Acute Comments: Patient admitted with intractable nausea and vomiting. He has really see if some relief from nausea after intervention by palliative care physician. Today, he states nausea is 4/10 and severe 10/10 as it was yesterday. Continue current medication regimen as per palliative care physician. Continue Zofran and Phenergan when necessary nausea Scopolamine patch has been stopped. Ativan has been decreased to 1/2 mg from 1 mg. Qualifiers: Vomiting type: unspecified Vomiting Intractability: non-intractable Qualified Code(s): R11.2 - Nausea with vomiting, unspecified (7) DVT (deep venous thrombosis) Priority: Secondary Status: Acute Comments: Patient with acute DVT and right peroneal vein, and right calf. Continue full dose Lovenox. Patient reports today that that is his primary site of pain. Qualifiers: DVT location: lower extremity Affected thrombotic vein of extremity: other lower extremity vein Chronicity: acute Laterality: right Qualified Code(s) : I82.491 - Acute embolism and thrombosis of other specified deep vein of right lower extremity (8) DVT prophylaxis Priority: Secondary Status: Acute Comments: Discussed above. - Discharge Medications Home Medications: Gabapentin [Neurontin] 600 - 1,200 mg PO TID 08/10/16 [History] Lisinopril [Zestril] 5 mg PO DAILY 08/10/16 [History] Ferrous Gluconate 324 mg PO DAILY 12/14/16 [History] Polyethylene Glycol 3350 [MiraLAX] 17 gm PO QPM 12/14/16 [History] Furosemide [Lasix] 20 mg PO DAILY 12/25/16 [History] Spironolactone [Aldactone] 50 mg PO DAILY 12/25/16 [History] Promethazine [Phenergan] 25 mg PO Q6HR #10 tablet 01/01/17 [Rx] Promethazine [Phenergan] 25 mg RC Q6HR #10 supp.rect 01/01/17 [Rx] Dexamethasone [Decadron] 10 mg IVP DAILY vial 01/05/17 [Rx] Enoxaparin [Lovenox] 90 mg SQ Q12H syringe 01/05/17 [Rx] HYDROmorphone (PF) [Dilaudid] 1 mg IVP Q2H PRN syringe 01/05/17 [Rx] HYDROmorphone 20 MG/20 ML LEAD GENERATION REPRESENTATIVE [Dilaudid 20 MG/20 ML LEAD GENERATION REPRESENTATIVE] 1 each IVC PROTOCOL PRN cloth mercerizing supervisor.vial 01/05/17 [Rx] LORazepam [Ativan] 0.5 mg IVP Q6HR vial 01/05/17 [Rx] Metoclopramide [Reglan] 10 mg IVP Q6H vial 01/05/17 [Rx] Metoprolol [Lopressor] 5 mg IVP Q6HR vial 01/05/17 [Rx] Naloxone [Narcan] 0.4 mg IVP Q2MIN PRN inj 01/05/17 [Rx] Ondansetron [Zofran] 4 mg IVP Q4H PRN vial 01/05/17 [Rx] OxyCODONE Oral Soln [OxyCODONE ORAL SOLN] 30 mg PO Q4H PRN ud.liq 01/05/17 [Rx] Allergies/Adverse Reactions: 3 Allergy/AdvReac Type Severity Reaction Status Date / Time morphine Allergy Rash Verified 01/02/17 06:25 Procedures/tests Complete & Pending: Procedures Performed prior 72 hours Category Date Time Status CT abd pelvis wo no iv no oral [CT] Stat Cat Scan 01/02/17 16:01 Completed Venous Doppler [EV venous imaging LE BI] Routine Y 01/03/17 11:28 Completed Date of admission: 01/02/17 11:20 Primary care physician: Chandler Clark Consults: 01/02/17 11:16 Consult to Physician [CONS] Routine Consulting Provider: Raleigh Howe Reason for Consult: Metastatic pancreatic cancer Call Completed: Yes 01/02/17 19:32 Consult to Fire Patroller [CONS] Routine Reason for SW Consult: POA paperwork 01/03/17 14:30 Consult to Pain Management [CONS] Routine Consulting Provider: Pain Mgt [facility] [place] Reason for Consult: Uncontrolled pain Call Completed: Yes 01/03/17 17:37 Consult to Gastroenterology [CONS] Routine Consulting Provider: Gastroenterology Catia Reason for Consult: EGD Call Completed: Yes 01/04/17 11:46 Consult to Palliative Care [CONS] Routine Comment: Consulting Provider: Palliative Care Catia Reason for Consult: comfort care Call Completed: Yes Discharging clinician: Val Vital Anticipated date of discharge: 01/05/17 - Patient Status Disposition: Hospice - Medical Facility Condition: Serious Functional capacity at discharge: bed bound Overall status at discharge: patient is not back to baseline - Discharge Instructions Follow Up With: Chandler Clark MD [Primary Care Provider] - Additional Instructions: Patient to be discharged to hospice under the care of Dr. Goncalves. Patient will go to room 2A55 Hospital course: Mr. Jade is a 61 year old male with DVT, recently diagnosed pancreatic cancer with metastases to the abdomen, peritoneum, lung, bone, and a prior history of hypertension. He was admitted here with intractable nausea and vomiting. Patient has received somewhat adequate relief of nausea. He had a palliative care consultation, and with his own volition, he has decided to enter hospice. Patient will be admitted to hospice under the care of Dr. Goncalves and moved to room 2A55. See assessment and plan per hospital course. - Time Spent with Patient Total time spent providing and/or coordinating discharge services: Less than 30 minutes - Constitutional Vitals: Temp Pulse Resp BP Pulse Ox 98.2 F 73 14 179/91 94 01/05/17 11:55 01/05/17 11:55 01/05/17 11:55 01/05/17 11:55 01/05/17 11:55 General appearance: Present: cooperative, A&O X 3, pleasant, no acute distress, answers questions appropriately Exam: Patient is drowsy, arouses easily to verbal, answers questions appropriately. - Head Head exam: Present: normal inspection - Eye Eye exam: Present: normal appearance, conjuntiva pink, sclera anicteric. Absent : periorbital swelling - Neck Neck exam general surgery: Present: supple, trachea midline - Respiratory Respiratory exam: Present: CTAB. Absent: accessory muscle use, chest wall tenderness, rales, respiratory distress, rhonchi, wheezes - Cardiovascular Cardiovascular exam: Present: RRR, +S1, +S2. Absent: diastolic murmur, gallop, rubs, systolic murmur - GI/Abdominal GI/Abdominal exam: Present: distended, normal bowel sounds, soft, no peritoneal signs. Absent: hepatomegaly, tenderness - Expanded GI/Abdominal Exam GI/Abdominal exam expanded: Present: ascites - Extremities Exam Extremities exam: Present: normal capillary refill, pedal edema, warm, radial pulses palpable and symmetrical. Absent: calf tenderness, cyanotic - Neurological Exam Neurological exam: Present: alert, oriented X3, no focal deficits. Absent: facial droop, speech deficit - Skin Skin exam: Present: dry, intact, normal color, rash, warm
--- NOTE | 2017-01-05 12:54 | Pallative History & Physical ---
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 Biopsies pending. We will have meeting with family today discussions of goals of care. Transition to hospice (2) Nausea & vomiting Status: Acute Improved. Patient was started on Ativan for anticipatory nausea and also Reglan. -Patient was confused this morning was likely secondary to addition of new medications including Reglan and Ativan. We have decreased the dose of Ativan 0.5 mg four times a day. Scopolamine as discontinued Zofran and Phenergan are changed when necessary. Currently we will continue IV fluids. We will also test the patient can tolerate ice chips and sips of water. She is able to then we can advance his diet. Qualifiers: Vomiting type: unspecified Vomiting Intractability: non-intractable Qualified Code(s): R11.2 - Nausea with vomiting, unspecified (3) Abdominal pain Status: Acute Secondary to pancreatic cancer patient was arching his back, appeared agitated as morning. Patient is using a milligram of Dilaudid an hour via FELTING MACHINE OPERATOR and also has breakthrough continue current regimen: will consider changing once patient is less confused. Qualifiers: Abdominal location: generalized Qualified Code(s): R10.84 - Generalized abdominal pain (4) DVT (deep venous thrombosis) Status: Acute was on lovenox for right peroneal dvt patient states he does not want this to be continued. Qualifiers: DVT location: lower extremity Affected thrombotic vein of extremity: other lower extremity vein Chronicity: acute Laterality: right Qualified Code(s) : I82.491 - Acute embolism and thrombosis of other specified deep vein of right lower extremity (5) Aspiration pneumonia Status: Suspected on levaquin and metronidazole for suspected aspiration pna will d/c as patient does not want this treatment comfort care O2 supplementation if necessary Qualifiers: Aspiration pneumonia type: unspecified Laterality: unspecified laterality Lung location: unspecified part of lung Qualified Code(s): J69.0 - Pneumonitis due to inhalation of food and vomit (6) Goals of care, counseling/discussion Status: Acute Able to have conversation with family (daughter and ). Patient does not want chemotherapy plus is likely not eligible if primary tumor is of pacreaticobiliary in origin. transition to hospice GIP Internal Medicine - H&P: HPI Chief complaint: N/V Admitted From: Intrahospital Transfer History of present illness: Mr. Jade is a 61 year old male with recently diagnosed metastatic andenocarcinoma unknown primary but likely pacreaticobiliary in origin presented to [facility] and then transferred to [facility] for evaluation of nausea and vomiting. Oncology states patient has poor prognosis and is not candidate for chemotherapy and does not want chemotheraphy. Patient was started on dilauded FELTING MACHINE OPERATOR and started on anti-emetics. Patient decided to transition to hospice care and was made GIP. Past Med Surg Social Fam HX - Past Medical History Medical history: cancer, hypertension, other Psychiatric history: no psych history - Past Surgical History Surgical History: no surgical history - Social History Smoking Status: Never smoker Smokeless Tobacco Status: No Alcohol use: none Drug use: none - Family History Father Living Status: Hx Family Cardiac Disorders: Yes ([place] at age 52) Mother Living Status: Hx Family Cardiac Disorders: No Hx Family Cancer: No Brother Hx Family Cancer: Yes (Lung cancer) Sister Hx Family Cancer: Yes (Lung cancer) Internal Medicine - H&P: Meds Gabapentin [Neurontin] 600 - 1,200 mg PO TID 08/10/16 [History] Lisinopril [Zestril] 5 mg PO DAILY 08/10/16 [History] Ferrous Gluconate 324 mg PO DAILY 12/14/16 [History] Polyethylene Glycol 3350 [MiraLAX] 17 gm PO QPM 12/14/16 [History] Furosemide [Lasix] 20 mg PO DAILY 12/25/16 [History] Spironolactone [Aldactone] 50 mg PO DAILY 12/25/16 [History] Promethazine [Phenergan] 25 mg PO Q6HR #10 tablet 01/01/17 [Rx] Promethazine [Phenergan] 25 mg RC Q6HR #10 supp.rect 01/01/17 [Rx] Dexamethasone [Decadron] 10 mg IVP DAILY vial 01/05/17 [Rx] Enoxaparin [Lovenox] 90 mg SQ Q12H syringe 01/05/17 [Rx] HYDROmorphone (PF) [Dilaudid] 1 mg IVP Q2H PRN syringe 01/05/17 [Rx] HYDROmorphone 20 MG/20 ML FELTING MACHINE OPERATOR [Dilaudid 20 MG/20 ML FELTING MACHINE OPERATOR] 1 each IVC PROTOCOL PRN systems integrator.vial 01/05/17 [Rx] LORazepam [Ativan] 0.5 mg IVP Q6HR vial 01/05/17 [Rx] Metoclopramide [Reglan] 10 mg IVP Q6H vial 01/05/17 [Rx] Metoprolol [Lopressor] 5 mg IVP Q6HR vial 01/05/17 [Rx] Naloxone [Narcan] 0.4 mg IVP Q2MIN PRN inj 01/05/17 [Rx] Ondansetron [Zofran] 4 mg IVP Q4H PRN vial 01/05/17 [Rx] OxyCODONE Oral Soln [OxyCODONE ORAL SOLN] 30 mg PO Q4H PRN ud.liq 01/05/17 [Rx] 3 Allergy/AdvReac Type Severity Reaction Status Date / Time morphine Allergy Rash Verified 01/02/17 06:25 Review of systems: Constitutional: Denies fever, chills HEENT: Denies headache, vision changes, neck pain, sore throat, rhinorrhea Heart: Denies chest pain palpitations Lungs: Denies shortness of breath, cough Abdomen: Reports abdomina lpain, nausea. denies vomiting Back: reports back pain Kidney: Denies dysuria, hematuria Skin: warm and dry Extremities: Denies swelling, pain Neuro: Denies numbness, and tingling Palliative Care-Exam - Constitutional Vitals: Temp Pulse Resp BP Pulse Ox 98.2 F 73 14 179/91 94 01/05/17 11:55 01/05/17 11:55 01/05/17 11:55 01/05/17 11:55 01/05/17 11:55 General appearance: Present: mild distress - Other Additional findings: General: mild distress HEENT: Head atraumatic, normocephalic, EOMI, PERRL, dry mucous membranes Heart: Regular rate and rhythm with no murmur Lungs:CTAB Abdomen: Soft nontender, nondistended positive bowel sounds Skin: warm and dry Extremities: 1+ pedal edema Neuro: alert oriented 3, Vascular: Pedal and radial pulses 2 out of 4 Psych: anxious Internal Medicine - H&P: Reslt - Labs CBC & Chem 7: 01/03/17 03:32 - Impressions ITS Impressions Abdomen/Pelvis CT 01/02/17 16:01 IMPRESSION: 1. No evidence of acute bowel inflammation or obstruction. 2. Slight interval progression of peritoneal carcinomatosis since the study of 12/14/2016. 3. Stable intrahepatic metastatic disease. 4. Stable splenomegaly. 5. Interval increase in size of small bilateral pleural effusions with dependent airspace consolidation within the bilateral lower lobes, likely passive atelectasis, though underlying aspiration or pneumonia cannot be excluded. 6. Stable scattered bibasilar pulmonary nodules, concerning for intrapulmonary metastatic disease. 7. Interval enlargement of an osseous metastasis invading the right 7th rib. D/ / 01/02/2017 17:32:23 Jim Breaux MD / [facility] Interpreting Provider: Jim Breaux MD Palliative Quality Palliative Quality: Screen for Code Status: Yes, Screen for Goals of Care: Yes, Screen for Pain: Yes, If Pain Regimen Started, Initiate Bowel Regimen: Yes, Screen for Nausea/Vomitting: Yes Code Status: 01/02/17 11:13 Resuscitation Status: Active [RES] Routine Comment: Patient stated to me he wants no CPR or ventilator Resuscitation Status: [id number] <HenokSantino marin - Last Filed: 01/05/17 14:42> Date of Encounter: 01/05/17 Internal Medicine - H&P: HPI History of present illness: Mr. Jade is a 61 year old male Palliative Care-Exam - Constitutional Vitals: Temp Pulse Resp BP Pulse Ox 98.2 F 73 14 179/91 94 01/05/17 11:55 01/05/17 11:55 01/05/17 11:55 01/05/17 11:55 01/05/17 11:55 Internal Medicine - H&P: Reslt - Labs CBC & Chem 7: 01/03/17 03:32 - Impressions ITS Impressions Abdomen/Pelvis CT 01/02/17 16:01 IMPRESSION: 1. No evidence of acute bowel inflammation or obstruction. 2. Slight interval progression of peritoneal carcinomatosis since the study of 12/14/2016. 3. Stable intrahepatic metastatic disease. 4. Stable splenomegaly. 5. Interval increase in size of small bilateral pleural effusions with dependent airspace consolidation within the bilateral lower lobes, likely passive atelectasis, though underlying aspiration or pneumonia cannot be excluded. 6. Stable scattered bibasilar pulmonary nodules, concerning for intrapulmonary metastatic disease. 7. Interval enlargement of an osseous metastasis invading the right 7th rib. D/ / 01/02/2017 17:32:23 [facility] / [facility] Inter[facility] Provider: Jim Breaux MD Palliative Quality Code Status: 01/02/17 11:13 Resuscitation Status: Active [RES] Routine Comment: Patient stated to me he wants no CPR or ventilator Resuscitation Status: [id number] - Attending Attestation I examined this patient and my medical decision-making was reviewed with the Resident Physician. I agree with the documented findings, disposition and treatment plan as described except to the extent set forth below.
[2017-01-05] MEDS: D5% in 0.9% NACL 1,000 ML IVC SCH (14:08)
== END 2017-01-05 14:19 | disposition hospice, inpatient (51) | DRG 436 ==
LOC: 3BNU
PROVIDERS: ADMIT Internal Medicine; ATTEND Registered Nurse
PROC: ENDOEBX (2017-01-04 13:30)

== ENCOUNTER 2017-01-05 11:22 | Inpatient (IN) ==
[2017-01-05] MEDS ORDERED: Acetaminophen 650 MG RECTAL SUPP RC PRN (11:29)
[2017-01-05] MEDS ORDERED: Acetaminophen 325 MG TABLET PO PRN (11:29)
[2017-01-05] MEDS ORDERED: Ondansetron 4 MG/2 ML VIAL IVP PRN ×2 (11:29→18:23)
[2017-01-05] MEDS ORDERED: Bisacodyl 10 MG RECTAL SUPPOSITORY RC PRN (11:29)
[2017-01-05] MEDS ORDERED: *HR* LORazepam 2 MG/ML VIAL IVP SCH (11:30)
[2017-01-05] MEDS ORDERED: *HR* FentaNYL PATCH 12 MCG PATCH TD SCH (11:30)
[2017-01-05] MEDS ORDERED: *HR* HYDROmorphone 20 MG/20 ML PCA IVC PRN (11:44)
--- NOTE | 2017-01-05 14:41 | Event Note ---
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 Biopsies pending. We will have meeting with family today discussions of goals of care. Transition to hospice (2) Nausea & vomiting Current visit: Yes Status: Acute Improved. Patient was started on Ativan for anticipatory nausea and also Reglan. -Patient was confused this morning was likely secondary to addition of new medications including Reglan and Ativan. We have decreased the dose of Ativan 0.5 mg four times a day. Scopolamine as discontinued Zofran and Phenergan are changed when necessary. Currently we will continue IV fluids. We will also test the patient can tolerate ice chips and sips of water. She is able to then we can advance his diet. Qualifiers: Vomiting type: unspecified Vomiting Intractability: non-intractable Qualified Code(s): R11.2 - Nausea with vomiting, unspecified (3) Abdominal pain Current visit: Yes Status: Acute Secondary to pancreatic cancer patient was arching his back, appeared agitated as morning. Patient is using a milligram of Dilaudid an hour via MOVER HELPER and also has breakthrough continue current regimen: will consider changing once patient is less confused. Qualifiers: Abdominal location: generalized Qualified Code(s): R10.84 - Generalized abdominal pain (4) DVT (deep venous thrombosis) Current visit: Yes Status: Acute was on lovenox for right peroneal dvt patient states he does not want this to be continued. Qualifiers: DVT location: lower extremity Affected thrombotic vein of extremity: other lower extremity vein Chronicity: acute Laterality: right Qualified Code(s) : I82.491 - Acute embolism and thrombosis of other specified deep vein of right lower extremity (5) Aspiration pneumonia Current visit: Yes Status: Suspected on levaquin and metronidazole for suspected aspiration pna will d/c as patient does not want this treatment comfort care O2 supplementation if necessary Qualifiers: Aspiration pneumonia type: unspecified Laterality: unspecified laterality Lung location: unspecified part of lung Qualified Code(s): J69.0 - Pneumonitis due to inhalation of food and vomit (6) Goals of care, counseling/discussion Current visit: Yes Status: Acute Able to have conversation with family (daughter and ). Patient does not want chemotherapy plus is likely not eligible if primary tumor is of pacreaticobiliary in origin. transition to hospice GIP Internal Medicine - H&P: HPI Chief complaint: N/V Admitted From: Intrahospital Transfer History of present illness: Mr. Jade is a 61 year old male with recently diagnosed metastatic andenocarcinoma unknown primary but likely pacreaticobiliary in origin presented to [facility] and then transferred to [facility] for evaluation of nausea and vomiting. Oncology states patient has poor prognosis and is not candidate for chemotherapy and does not want chemotheraphy. Patient was started on dilauded MOVER HELPER and started on anti-emetics. Patient decided to transition to hospice care and was made GIP. Past Med Surg Social Fam HX - Past Medical History Medical history: cancer, hypertension, other Psychiatric history: no psych history - Past Surgical History Surgical History: no surgical history - Social History Smoking Status: Never smoker Smokeless Tobacco Status: No Alcohol use: none Drug use: none - Family History Father Living Status: Hx Family Cardiac Disorders: Yes ([place] at age 52) Mother Living Status: Hx Family Cardiac Disorders: No Hx Family Cancer: No Brother Hx Family Cancer: Yes (Lung cancer) Sister Hx Family Cancer: Yes (Lung cancer) Internal Medicine - H&P: Meds Gabapentin [Neurontin] 600 - 1,200 mg PO TID 08/10/16 [History] Lisinopril [Zestril] 5 mg PO DAILY 08/10/16 [History] Ferrous Gluconate 324 mg PO DAILY 12/14/16 [History] Polyethylene Glycol 3350 [MiraLAX] 17 gm PO QPM 12/14/16 [History] Furosemide [Lasix] 20 mg PO DAILY 12/25/16 [History] Spironolactone [Aldactone] 50 mg PO DAILY 12/25/16 [History] Promethazine [Phenergan] 25 mg PO Q6HR #10 tablet 01/01/17 [Rx] Promethazine [Phenergan] 25 mg RC Q6HR #10 supp.rect 01/01/17 [Rx] Dexamethasone [Decadron] 10 mg IVP DAILY vial 01/05/17 [Rx] Enoxaparin [Lovenox] 90 mg SQ Q12H syringe 01/05/17 [Rx] HYDROmorphone (PF) [Dilaudid] 1 mg IVP Q2H PRN syringe 01/05/17 [Rx] HYDROmorphone 20 MG/20 ML MOVER HELPER [Dilaudid 20 MG/20 ML MOVER HELPER] 1 each IVC PROTOCOL PRN attendant sales.vial 01/05/17 [Rx] LORazepam [Ativan] 0.5 mg IVP Q6HR vial 01/05/17 [Rx] Metoclopramide [Reglan] 10 mg IVP Q6H vial 01/05/17 [Rx] Metoprolol [Lopressor] 5 mg IVP Q6HR vial 01/05/17 [Rx] Naloxone [Narcan] 0.4 mg IVP Q2MIN PRN inj 01/05/17 [Rx] Ondansetron [Zofran] 4 mg IVP Q4H PRN vial 01/05/17 [Rx] OxyCODONE Oral Soln [OxyCODONE ORAL SOLN] 30 mg PO Q4H PRN ud.liq 01/05/17 [Rx] Allergy/AdvReac Type Severity Reaction Status Date / Time morphine Allergy Rash Verified 01/02/17 06:25 Review of systems: Constitutional: Denies fever, chills HEENT: Denies headache, vision changes, neck pain, sore throat, rhinorrhea Heart: Denies chest pain palpitations Lungs: Denies shortness of breath, cough Abdomen: Reports abdomina lpain, nausea. denies vomiting Back: reports back pain Kidney: Denies dysuria, hematuria Skin: warm and dry Extremities: Denies swelling, pain Neuro: Denies numbness, and tingling Palliative Care-Exam - Constitutional Vitals: Temp Pulse Resp BP Pulse Ox 98.2 F 73 14 179/91 94 01/05/17 11:55 01/05/17 11:55 01/05/17 11:55 01/05/17 11:55 11:55 General appearance: Present: mild distress - Other Additional findings: General: mild distress HEENT: Head atraumatic, normocephalic, EOMI, PERRL, dry mucous membranes Heart: Regular rate and rhythm with no murmur Lungs:CTAB Abdomen: Soft nontender, nondistended positive bowel sounds Skin: warm and dry Extremities: 1+ pedal edema Neuro: alert oriented 3, Vascular: Pedal and radial pulses 2 out of 4 Psych: anxious Internal Medicine - H&P: Reslt - Labs CBC & Chem 7: 01/03/17 03:32 [Image 1] - Impressions ITS Impressions Abdomen/Pelvis CT 01/02/17 16:01 IMPRESSION: 1. No evidence of acute bowel inflammation or obstruction. 2. Slight interval progression of peritoneal carcinomatosis since the study of 12/14/2016. 3. Stable intrahepatic metastatic disease. 4. Stable splenomegaly. 5. Interval increase in size of small bilateral pleural effusions with dependent airspace consolidation within the bilateral lower lobes, likely passive atelectasis, though underlying aspiration or pneumonia cannot be excluded. 6. Stable scattered bibasilar pulmonary nodules, concerning for intrapulmonary metastatic disease. 7. Interval enlargement of an osseous metastasis invading the right 7th rib. D/ / 01/02/2017 17:32:23 Jim Breaux MD / [facility] Interpreting Provider: Jim Breaux MD Palliative Quality Palliative Quality: Screen for Code Status: Yes, Screen for Goals of Care: Yes, Screen for Pain: Yes, If Pain Regimen Started, Initiate Bowel Regimen: Yes, Screen for Nausea/Vomitting: Yes Code Status: 01/02/17 11:13 Resuscitation Status: Active [RES] Routine Comment: Patient stated to me he wants no CPR or ventilator Resuscitation Status: [id number] Documented By: Joe Cabrera DO Signed By: <Electronically signed by Joe Cabrera> 01/05/17 1335 DD/ 1246 Initialized By: [id number]
[2017-01-05] MEDS: Metoclopramide 10 MG/2 ML VIAL IVP SCH ×3 (15:27→23:55)
[2017-01-05] MEDS: *HR* Metoprolol 5 MG/5 ML VIAL IVP SCH ×3 (15:27→23:55)
[2017-01-05] MEDS: D5% in 0.9% NACL 1,000 ML IVC SCH (15:43)
[2017-01-05] MEDS: *HR* LORazepam 2 MG/ML VIAL IVP SCH ×2 (15:44→20:40)
[2017-01-05] MEDS ORDERED: *HR* FentaNYL PATCH 25 MCG PATCH TD SCH (16:00)
[2017-01-05] MEDS: Pantoprazole 40 MG VIAL IVP SCH (17:30)
[2017-01-05] MEDS: *HR* LORazepam Oral Conc 2 MG/ML PO PRN (18:20)
[2017-01-05] MEDS: *HR* Promethazine 25 MG/ML VIAL IVP PRN (18:35)
[2017-01-05] MEDS: *HR* HYDROmorphone 2 MG/ML SYRINGE IVP PRN ×3 (18:35→23:55)
[2017-01-05] MEDS: Dexamethasone 4 MG/ML VIAL IVP SCH (20:40)
[2017-01-05] MEDS: Sennosides/Docusate Sodium TABLET PO SCH (20:47)
[2017-01-06] MEDS: *HR* Promethazine 25 MG/ML VIAL IVP PRN (01:47)
[2017-01-06] MEDS: *HR* HYDROmorphone 2 MG/ML SYRINGE IVP PRN ×10 (03:18→23:33)
[2017-01-06] MEDS: *HR* LORazepam 2 MG/ML VIAL IVP SCH ×4 (03:18→21:10)
[2017-01-06] MEDS: D5% in 0.9% NACL 1,000 ML IVC SCH ×3 (03:20→13:19)
[2017-01-06] MEDS: *HR* Metoprolol 5 MG/5 ML VIAL IVP SCH ×4 (06:12→23:33)
[2017-01-06] MEDS: Pantoprazole 40 MG VIAL IVP SCH ×2 (06:12→18:17)
[2017-01-06] MEDS: Metoclopramide 10 MG/2 ML VIAL IVP SCH ×4 (06:13→23:33)
[2017-01-06] MEDS: Sennosides/Docusate Sodium TABLET PO SCH ×2 (08:21→21:11)
[2017-01-06] MEDS: Dexamethasone 4 MG/ML VIAL IVP SCH ×2 (08:22→21:10)
--- NOTE | 2017-01-06 09:40 | Internal Med Progress Note ---
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 increase frequency to Q1h as patient is asking more frequently. Ativan 0.25 mg IVP every 6 hours: patient is alert, and oriented x3 will continue this: increasing dose may make his confused. (2) Ascites Current Visit: Yes Status: Acute Assessment and plan: 2nd to metastatic adenocarcinoma underwent bedside abdominal US for evaluation of asciteis abdomen distended has significant ascities however patient states it is not uncomfortable/painful has 3 paracentesis in the last month: will benefit from pleurex catheter but will hold off since patient states currently he is comfortable. Qualifiers: Ascites type: malignant Qualified Code(s): R18.0 - Malignant ascites (3) Nausea & vomiting Current Visit: Yes Status: Acute Assessment and plan: improved. 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 (5) DVT (deep venous thrombosis) Current Visit: Yes Status: Acute Assessment and plan: was on lovenox for right peroneal dvt patient states he does not want this to be continued. Qualifiers: DVT location: lower extremity Affected thrombotic vein of extremity: other lower extremity vein Chronicity: acute Laterality: right Qualified Code(s) : I82.491 - Acute embolism and thrombosis of other specified deep vein of right lower extremity - Subjective Interval history: No acute events overnight. Patient resting comfortably in bed. Pain and nausea better control. - Constitutional Vitals: Temp Pulse Resp BP Pulse Ox 97.6 F 75 20 163/94 94 01/06/17 07:21 01/06/17 07:21 01/06/17 07:21 01/06/17 07:21 01/06/17 08:26 - Other Additional findings: General: Pleasant male without distress Heart: Regular rate and rhythm with no murmur Lungs: Clear to auscultation bilaterally Abdomen: Soft nontender, distended, positive bowel sounds, epigastric tenderness to palpation. Skin: warm and dry Extremities: 1+ pedal edema Neuro: Alert and oriented 3 Vascular: Pedal and radial pulses 2 out of 4 Consult Discharge Plan - Plan Referrals: Chandler Clark MD [Primary Care Provider] - <Santino Goncalves - Last Filed: 01/06/17 10:50> Date of Encounter: 01/06/17 - Constitutional Vitals: Temp Pulse Resp BP Pulse Ox 97.6 F 75 20 163/94 94 01/06/17 07:21 01/06/17 07:21 01/06/17 07:21 01/06/17 07:21 01/06/17 08:26 - Attending Attestation I examined this patient and my medical decision-making was reviewed with the Resident Physician. I agree with the documented findings, disposition and treatment plan as described except to the extent set forth below. \\\ consider for pleurex catheter for tomorrow. sig 2-3 l noted on bedside ultrasound
[2017-01-06] MEDS: 0.9 % Sodium Chloride 1,000 ML IVC SCH (15:16)
[2017-01-07] MEDS: *HR* Metoprolol 5 MG/5 ML VIAL IVP SCH ×4 (00:18→17:32)
[2017-01-07] MEDS: *HR* HYDROmorphone 20 MG/20 ML PCA IVC PRN (01:21)
[2017-01-07] MEDS: *HR* LORazepam 2 MG/ML VIAL IVP SCH ×5 (03:02→20:36)
[2017-01-07] MEDS: 0.9 % Sodium Chloride 1,000 ML IVC SCH ×2 (04:50→17:33)
[2017-01-07] MEDS: Pantoprazole 40 MG VIAL IVP SCH ×2 (04:52→17:32)
[2017-01-07] MEDS: Metoclopramide 10 MG/2 ML VIAL IVP SCH ×3 (04:53→17:33)
[2017-01-07] MEDS: *HR* HYDROmorphone 2 MG/ML SYRINGE IVP PRN (04:54)
--- NOTE | 2017-01-07 09:08 | Palliative Progress Note ---
Date of Encounter: 01/07/17 Time of Encounter: 08:30 - Assessment and plan (1) Abdominal pain Current Visit: No Status: Acute Assessment and plan: Much better currently. When necessary dosing was 10 mg yesterday. Is the equivalent of 200 oral morphine equivalents. Patient is already on a 25 mcg fentanyl patch. We were to do an equivalency of patch be 100 microg patch. Will have that for safety sake, to the already on fentanyl patch for total of 75 mics need to go up on that in a couple of days. Qualifiers: Abdominal location: generalized Qualified Code(s): R10.84 - Generalized abdominal pain (2) Chronic thoracic back pain Current Visit: No Status: Chronic Assessment and plan: Leave this to be secondary to chronic issues, being stuck in bed and the added burden of the cancer pain. Is on a TRANSCRIBING MACHINE OPERATOR pump we are adjusting his fentanyl patch today. Qualifiers: Back pain laterality: bilateral Qualified Code(s): M54.6 - Pain in thoracic spine; G89.29 - Other chronic pain; G89.29 - Other chronic pain (3) Ascites Current Visit: Yes Status: Acute Assessment and plan: Ascites was estimated by bedside ultrasound yesterday around 300 mL. Patient has been accumulating it very rapidly IR to see today regarding placement of a Pleurx catheter. Qualifiers: Ascites type: malignant Qualified Code(s): R18.0 - Malignant ascites (4) Nausea & vomiting Current Visit: Yes Status: Acute Assessment and plan: Under much better control now patient is taking sips of fluids after the Pleurx catheters placed we will advance to full liquid diet. Qualifiers: Vomiting type: unspecified Vomiting Intractability: non-intractable Qualified Code(s): R11.2 - Nausea with vomiting, unspecified (5) Intractable nausea and vomiting Current Visit: No Status: Acute Assessment and plan: Much improved now I have cut back his Decadron to once a day. Her medications are now when necessary Will think about withdrawing the Reglan tomorrow. The patient continues to have a great deal of anxiety I will leave on the low dose of the Ativan. Qualifiers: Vomiting type: unspecified Qualified Code(s): R11.2 - Nausea with vomiting , unspecified (6) Goals of care, counseling/discussion Current Visit: No Status: Acute Assessment and plan: The patient is now GIP hospice. DNR CC. Planning for discharge on Wednesday as I believe we can have his nausea vomiting and pain under reasonable control and have him over on oral medications by that time. Try to get EMB set up at home so we can accomplish this. Of note, Asians cancer is moving very very rapidly the patient's condition could easily deteriorate over the course the next several days requiring hospitalization. I have told the patient and the family will take this one day at a time. (7) Adenocarcinoma of unknown primary Current Visit: No Status: Acute Assessment and plan: This is the hospice terminal diagnosis. Probably pancreatic or GI in origin. Per oncology not amenable to any further therapy. The cancer is moving extremely rapidly. - Time Spent With Patient Total time spent is greater than 50% in coordination of care (as documented) at patient's floor/unit and/or counseling patient: - Subjective Interval history: Patient requested pain pump be replaced last night this was done. Patient is doing well this morning nausea is not persistent any longer. It comes in waves and it is much better. He is tolerating sips of clears. Since pain is under much better control now. (Pain is actually using less with the TRANSCRIBING MACHINE OPERATOR pump and he would be using with the when necessary's). Patient states that his belly is a little bit more tense but not significantly changed from yesterday. He is not really having any shortness of breath at this time his abdomen is tender and uncomfortable. - Constitutional General appearance: Present: no acute distress - Head Head exam: Present: atraumatic, normal inspection - Eye Eye exam: Present: normal appearance - ENT ENT exam: Present: mucous membranes moist - Neck Neck exam: Present: normal inspection - Respiratory Respiratory exam: Present: CTAB - Cardiovascular Cardiovascular exam: Present: RRR - GI/Abdominal GI/Abdominal exam: Present: distended, hypoactive bowel sounds, soft, tenderness. Absent: rigid - Extremities Exam Extremities exam: Present: normal inspection, pedal edema (Very mild). Absent: tenderness - Neurological Exam Neurological exam: Present: alert, oriented X3 - Psychiatric Psychiatric exam: Absent: agitated, anxious - Skin Skin exam: Present: dry, warm Palliative Quality Palliative Quality: Screen for Code Status: Yes, Screen for Goals of Care: Yes, Screen for Pain: Yes, If Pain Regimen Started, Initiate Bowel Regimen: Yes, Screen for Nausea/Vomitting: Yes Code Status: 01/05/17 11:29 Resuscitation Status: Active [RES] Stat Comment: Resuscitation Status: DNR-Comfort Care Consult Discharge Plan - Plan Referrals: Chandler Clark MD [Primary Care Provider] -
[2017-01-07] MEDS ORDERED: *HR* FentaNYL PATCH 75 MCG PATCH TD SCH (09:30)
[2017-01-07] MEDS: Sennosides/Docusate Sodium TABLET PO SCH ×2 (10:50→20:18)
[2017-01-07] MEDS: Dexamethasone 4 MG/ML VIAL IVP SCH (12:11)
[2017-01-07] MEDS ORDERED: 0.9 % Sodium Chloride 500 ML ONE (12:58)
[2017-01-07] MEDS ORDERED: ceFAZolin 2,000 MG in D5% in Water 100 ML IVPB ONE (14:45)
--- NOTE | 2017-01-07 14:59 | IR Procedure Note ---
Date of procedure: 01/07/17 Consent Obtained: Written consent Timeout: Correct patient and procedure verified, Correct site verified, Time out performed, Skin prep completed Indications: Malignant ascites Procedure Performed: Pleurx, abdomen Site/Technique: Left abdomen Results/Findings: Adequate placement Estimated blood loss (cc): 2 Complications: None; Tolerated procedure well Post Procedure Treatment Plan: OK to use
[2017-01-07] MEDS ORDERED: ceFAZolin 1,000 MG in D5% in Water 100 ML IVPB ONE (15:01)
[2017-01-07] MEDS ORDERED: ceFAZolin 1,000 MG in D5% in Water (Mini-Bag+) 100 ML IVPB ONE ×2 (15:01→16:00)
[2017-01-07] MEDS ORDERED: *HR* LORazepam 2 MG/ML VIAL IVP ONE (20:14)
[2017-01-08] MEDS: Metoclopramide 10 MG/2 ML VIAL IVP SCH ×4 (01:58→17:55)
[2017-01-08] MEDS: *HR* Metoprolol 5 MG/5 ML VIAL IVP SCH ×4 (01:58→17:55)
[2017-01-08] MEDS: *HR* LORazepam 2 MG/ML VIAL IVP SCH ×4 (01:59→22:50)
[2017-01-08] MEDS: Dexamethasone 4 MG/ML VIAL IVP SCH ×2 (02:20→09:56)
[2017-01-08] MEDS: Pantoprazole 40 MG VIAL IVP SCH ×2 (05:58→17:55)
[2017-01-08] MEDS: 0.9 % Sodium Chloride 1,000 ML IVC SCH ×2 (05:58→12:09)
[2017-01-08] MEDS: *HR* HYDROmorphone 20 MG/20 ML PCA IVC PRN (07:18)
[2017-01-08] MEDS ORDERED: 0.9 % Sodium Chloride 1,000 ML IVC SCH (09:15)
[2017-01-08] MEDS ORDERED: *HR* FentaNYL PATCH 75 MCG PATCH TD SCH (09:15)
--- NOTE | 2017-01-08 09:18 | Palliative - Consult Note ---
Date of Encounter: 01/08/17 Time of Encounter: 09:15 - Assessment and Plan (1) Cancer associated pain Current Visit: Yes Status: Acute Assessment and plan: In Palliative rounds this am, was discussed that pt on large amount pain medication prior to admission prescribed by Dr. Clark in [place] - verified by [facility] report. His oral morphine equivalent by home use of Oxycodone is approx 400mg/day. He will require higher Fentanyl dose for pain control. D/W patient. Will increase patch to 125mcg and monitor. This will possibly need increased again by Wednesday. D/W primary nurse, and asked her to let Palliative team know if he was meeting lockout on his Hydromorphone URBAN REDEVELOPMENT SPECIALIST and still uncomfortable. 4 hours lockout and frequency interval may need increased until higher dose patch is effective. (2) Nausea & vomiting Current Visit: Yes Status: Acute Assessment and plan: THis has improved and he is tolerating clear liquids, drinking water. Ate some ice cream last night. He reports increased swelling and lower extremities have 2-3 edema. Since nausea improved and taking liquids, will decrease IV fluids to 50ml/hr and monitor. Qualifiers: Vomiting type: unspecified Vomiting Intractability: non-intractable Qualified Code(s): R11.2 - Nausea with vomiting, unspecified (3) Pancreatic cancer metastasized to liver Current Visit: Yes Status: Suspected (4) Goals of care, counseling/discussion Current Visit: No Status: Acute Assessment and plan: Continue inpt hospice care, still requiring escalation of pain medications at this point. Palliative-CN HPI - Data of Consult Consult date: 01/08/17 Requesting Physician: Santino Goncalves MD Primary Care Provider: Chandler Clark - Consult Narrative History of present illness: Mr. Jade is a 61 year old male who was recently diagnosed with metastatic adenocarcinoma unknown primary likely pancreaticobiliary in origin. He had a PET scan 12/30/2016 which showed Multiple liver metastasis. Multiple peritoneal deposits and right sixth rib metastasis. .He presented here from [facility] with nausea and vomiting. He also complains of abdominal pain and diarrhea.upon admission. He was seen by oncology and GI specialist during hospital admission, and Palliative care team was also consulted. After discussion of prognosis, pt decided to proceed with hospice care. Because of his nausea and poorly controlled pain, he was transitioned to general inpatient hospice. He had a abd pleurx cath placed yesterday for drainage of ascites to help with symptom management as well. Upon my visit, he is sleeping but awakens easily. C/o tenderness around site of pleurx cath and back pain that is chronic in nature for him. Does states he feels his lower extremity swelling is a little worse. No family members at present at the time of my visit. CC: Santino Goncalves MD Past Med Surg Social Fam HX - Past Medical History Medical history: cancer, hypertension, other Psychiatric history: no psych history - Past Surgical History Surgical History: no surgical history - Social History Smoking Status: Never smoker Smokeless Tobacco Status: No Alcohol use: none Drug use: none - Family History Father Living Status: Hx Family Cardiac Disorders: Yes ([place] at age 52) Mother Living Status: Hx Family Cardiac Disorders: No Hx Family Cancer: No Brother Hx Family Cancer: Yes (Lung cancer) Sister Hx Family Cancer: Yes (Lung cancer) Medications and Allergies Gabapentin [Neurontin] 600 - 1,200 mg PO TID 08/10/16 [History] Lisinopril [Zestril] 5 mg PO DAILY 08/10/16 [History] Ferrous Gluconate 324 mg PO DAILY 12/14/16 [History] Polyethylene Glycol 3350 [MiraLAX] 17 gm PO QPM 12/14/16 [History] Furosemide [Lasix] 20 mg PO DAILY 12/25/16 [History] Spironolactone [Aldactone] 50 mg PO DAILY 12/25/16 [History] Promethazine [Phenergan] 25 mg PO Q6HR #10 tablet 01/01/17 [Rx] Promethazine [Phenergan] 25 mg RC Q6HR #10 supp.rect 01/01/17 [Rx] Dexamethasone [Decadron] 10 mg IVP DAILY vial 01/05/17 [Rx] Enoxaparin [Lovenox] 90 mg SQ Q12H syringe 01/05/17 [Rx] HYDROmorphone (PF) [Dilaudid] 1 mg IVP Q2H PRN syringe 01/05/17 [Rx] HYDROmorphone 20 MG/20 ML URBAN REDEVELOPMENT SPECIALIST [Dilaudid 20 MG/20 ML URBAN REDEVELOPMENT SPECIALIST] 1 each IVC PROTOCOL PRN triple valve tester.vial 01/05/17 [Rx] LORazepam [Ativan] 0.5 mg IVP Q6HR vial 01/05/17 [Rx] Metoclopramide [Reglan] 10 mg IVP Q6H vial 01/05/17 [Rx] Metoprolol [Lopressor] 5 mg IVP Q6HR vial 01/05/17 [Rx] Naloxone [Narcan] 0.4 mg IVP Q2MIN PRN inj 01/05/17 [Rx] Ondansetron [Zofran] 4 mg IVP Q4H PRN vial 01/05/17 [Rx] OxyCODONE Oral Soln [OxyCODONE ORAL SOLN] 30 mg PO Q4H PRN ud.liq 01/05/17 [Rx] 3 Allergy/AdvReac Type Severity Reaction Status Date / Time morphine Allergy Rash Verified 01/02/17 06:25 All systems: reviewed and no additional remarkable complaints except as stated ( lower extremity and abdominal swelling, intermittent nausea, weakness, abd pain , chronic back pain) Palliative Care-Exam - Constitutional Vitals: Temp Pulse Resp BP Pulse Ox 98.1 F 83 18 146/76 96 01/08/17 07:07 01/08/17 07:07 01/08/17 07:07 01/08/17 07:07 01/08/17 07:07 General appearance: Present: no acute distress - Head Head Exam: Present: normal inspection, normocephalic - Eye Eye exam: Present: normal appearance, PERRL - Respiratory Respiratory exam: Present: decreased breath sounds, CTAB - Cardiovascular Cardiovascular exam: Present: +S1, +S2 - GI/Abdominal Exam GI/Abdominal exam: Present: diminished bowel sounds, distended, tenderness additional comments: Pleurx cath to LLQ - Additional comments: Voided per urinal - urine dk debra - Extremities Exam Additional comments: 2-3+ lower extremity edema - Neurological Exam Neurological exam: Present: alert, oriented X3, strengths equal and symetr throughout - Skin Skin exam: Present: dry, warm Internal Medicine - CN: Reslt - Impressions Impressions Guidance Needle Placement Ultrasound 01/07/17 00:00 IMPRESSION: Successful ultrasound and fluoroscopically guided abdominal PleurX catheter placement. D/ / 01/07/2017 15:21:54 Isabella Joshi MD / [facility] Interpreting Provider: Isabella Joshi MD Insertion Tunneled Catheter 01/07/17 00:00 IMPRESSION: Successful ultrasound and fluoroscopically guided abdominal PleurX catheter placement. D/ / 01/07/2017 15:21:54 Isabella Joshi MD / [email or web address] Interpreting Provider: Isabella Joshi MD Consult Discharge Plan - Plan Referrals: Chandler Clark MD [Primary Care Provider] - Palliative Quality Palliative Quality: Screen for Code Status: Yes, Screen for Goals of Care: Yes, Screen for Pain: Yes, If Pain Regimen Started, Initiate Bowel Regimen: Yes, Screen for Nausea/Vomitting: Yes Code Status: 01/05/17 11:29 Resuscitation Status: Active [RES] Stat Comment: Resuscitation Status: DNR-Comfort Care
[2017-01-08] MEDS: FentaNYL PATCH 100 MCG, FentaNYL PATCH 25 MCG TD SCH (09:54)
[2017-01-08] MEDS: Sennosides/Docusate Sodium TABLET PO SCH ×2 (09:56→23:01)
[2017-01-09] MEDS: Metoclopramide 10 MG/2 ML VIAL IVP SCH ×4 (00:46→17:25)
[2017-01-09] MEDS: *HR* Metoprolol 5 MG/5 ML VIAL IVP SCH ×4 (00:46→17:06)
[2017-01-09] MEDS: *HR* LORazepam 2 MG/ML VIAL IVP SCH ×4 (02:04→20:57)
[2017-01-09] MEDS: Pantoprazole 40 MG VIAL IVP SCH ×2 (06:07→17:25)
[2017-01-09] MEDS: Sennosides/Docusate Sodium TABLET PO SCH ×2 (09:46→20:58)
[2017-01-09] MEDS: Dexamethasone 4 MG/ML VIAL IVP SCH (09:47)
[2017-01-09] MEDS: 0.9 % Sodium Chloride 1,000 ML IVC SCH (09:51)
--- NOTE | 2017-01-09 10:09 | Palliative Progress Note ---
Date of Encounter: 01/09/17 Time of Encounter: 08:45 - Assessment and plan (1) Cancer associated pain Current Visit: No Status: Acute Assessment and plan: Patient with terminal pancreatic cancer. Denies pain at present. Current regimen includes: Fentanyl patch at 125mcg Dilaudid CYLINDER HONER with demand setting. History revealed 8.5 mg of Dilaudid requested in past 24 hrs. Patient describes generalized abdominal pain as ache and occasional stabbing when it occurs. Discussed possible transition to PO Diludid tomorrow. Patient is just getting relieve and N/V has subsided. Tolerating PO without N/V. (2) Intractable nausea and vomiting Current Visit: No Status: Acute Assessment and plan: N/V has subsided. Patient with PRN Zofran and Phenergan. Scheduled Reglan is assisting. Tolerated PO ice cream and juice this AM. Will monitor I&O. Passing gas but no BM. BS x 4. Qualifiers: Vomiting type: unspecified Qualified Code(s): R11.2 - Nausea with vomiting , unspecified (3) Goals of care, counseling/discussion Current Visit: Yes Status: Acute Assessment and plan: Long discussion with patient as his goals are to return home in the care of his family. He reports having a strong spiritual foundation and supportive family. He is excited about a visit from his grandchildren today as well at watching the [employer] football game. Provided support and offered prayer. Discussed goals of pain management and if PO intake maintains today will transition to PO BTP in AM. Patient verbalized understanding. (4) Ascites Current Visit: Yes Status: Acute Assessment and plan: Patient had abdominal pleurx placed per IR yesterday and can drain to facilitate breathing. Dressing CDI. Qualifiers: Ascites type: malignant Qualified Code(s): R18.0 - Malignant ascites (5) Pancreatic cancer metastasized to liver Current Visit: Yes Status: Suspected - Time Spent With Patient Total time spent is greater than 50% in coordination of care (as documented) at patient's floor/unit and/or counseling patient: 25 - 35 minutes - Subjective Interval history: Patient awake. Alert and oriented. Reports that his pain is much better to his abdomen. Patient with pancreatic cancer. S/P abdominal pleurx catheter inserted yesterday for malignant ascites. Patient reports being able to get up and ambulate around the room. No family at bedside but reports that family is expected later today. - Constitutional Vitals: Vitals stable General appearance: Present: no acute distress - Head Head exam: Present: atraumatic, normal inspection, normocephalic - Eye Eye exam: Present: PERRL - ENT ENT exam: Present: mucous membranes moist - Neck Neck exam: Present: full ROM - Respiratory Respiratory exam: Present: decreased breath sounds, CTAB - Expanded Respiratory Exam Location: decreased breath sounds: Left, Right, Lower - Cardiovascular Cardiovascular exam: Present: RRR, +S1, +S2 - Expanded Cardiovascular Exam Peripheral pulses: 1+: Femoral (L) PM, Femoral (R) PM, Posterior Tibialis (L), Posterior Tibialis (R), 2+: Carotid (L) PM, Carotid (R) PM, Radial (L), Radial ( R), Dorsalis Pedis (L) PM, Dorsalis Pedis (R) PM - GI/Abdominal GI/Abdominal exam: Present: distended, normal bowel sounds, soft Additional comments: NO BM - Additional comments: Voids per Urinal - Extremities Exam Extremities exam: Present: pedal edema (3+ pitting) - Expanded Lower Extremity Exam Hip exam: Present: full ROM Upper Leg exam: Present: full ROM Knee exam: Present: full ROM Lower leg exam: Present: full ROM - Back Exam Back exam: Present: full ROM - Neurological Exam Neurological exam: Present: alert, oriented X3 - Psychiatric Psychiatric exam: Present: normal affect - Skin Skin exam: Present: dry, warm (applied cream to lower legs) Palliative Quality Palliative Quality: Screen for Code Status: Yes, Screen for Goals of Care: Yes, Screen for Pain: Yes, If Pain Regimen Started, Initiate Bowel Regimen: Yes, Screen for Nausea/Vomitting: Yes Code Status: 01/05/17 11:29 Resuscitation Status: Active [RES] Stat Comment: Resuscitation Status: DNR-Comfort Care Consult Discharge Plan - Plan Referrals: Chandler Clark MD [Primary Care Provider] -
[2017-01-09] MEDS: *HR* HYDROmorphone 20 MG/20 ML PCA IVC PRN (14:29)
[2017-01-10] MEDS: *HR* Metoprolol 5 MG/5 ML VIAL IVP SCH ×4 (00:42→17:43)
[2017-01-10] MEDS: Metoclopramide 10 MG/2 ML VIAL IVP SCH ×4 (00:42→17:43)
[2017-01-10] MEDS: *HR* LORazepam 2 MG/ML VIAL IVP SCH ×5 (03:04→22:37)
[2017-01-10] MEDS: Pantoprazole 40 MG VIAL IVP SCH ×2 (05:26→17:40)
[2017-01-10] MEDS: Dexamethasone 4 MG/ML VIAL IVP SCH (09:24)
[2017-01-10] MEDS: Sennosides/Docusate Sodium TABLET PO SCH ×2 (09:46→22:37)
--- NOTE | 2017-01-10 10:47 | Palliative Progress Note ---
Date of Encounter: 01/10/17 Time of Encounter: 10:30 - Assessment and plan (1) Cancer associated pain Current Visit: No Status: Acute Assessment and plan: Patient with terminal pancreatic cancer. Denies pain at present. Current regimen includes: Fentanyl patch at 125mcg Dilaudid LABORATORY TECHNICIAN with demand setting. History revealed 12 mg of Dilaudid requested in past 24 hrs. Patient describes generalized abdominal pain pressure. Ascites, + fluid wave. Discussed transition to PO Dilaudid today. Tolerating PO without N/V. Transition to po Dilaudid today based on LABORATORY TECHNICIAN conversion need. Patient agree to plan and desires DC home tomorrow. (2) Intractable nausea and vomiting Current Visit: No Status: Acute Assessment and plan: N/V has subsided. Patient with PRN Zofran and Phenergan. Scheduled Reglan is assisting. Tolerated PO ice cream this AM. Will monitor I&O. Passing gas but no BM. BS x 4. Qualifiers: Vomiting type: unspecified Qualified Code(s): R11.2 - Nausea with vomiting , unspecified (3) Goals of care, counseling/discussion Current Visit: Yes Status: Acute Assessment and plan: Long discussion with patient as his goals are to return home in the care of his family. Discussed goals of pain management and transition to PO Dilaudid. Patient verbalized understanding. Goals is for DC in AM. (4) Ascites Current Visit: Yes Status: Acute Assessment and plan: Patient with malignant ascites. Patient increased abdominal girth, c/o abdominal fullness and pressure, + fluid wave, peripheral edema. Obtained pleurx kit from IR. Bedside pleurx catheter fluid removal performed under sterile technique. Cleaned catheter and removed 400ml straw colored urine. Vitals stable pre and post procedure. Patient tolerated well. Sterile cap and dressing applied post procedure. Qualifiers: Ascites type: malignant Qualified Code(s): R18.0 - Malignant ascites (5) Pancreatic cancer metastasized to liver Current Visit: Yes Status: Suspected - Time Spent With Patient Total time spent is greater than 50% in coordination of care (as documented) at patient's floor/unit and/or counseling patient: 25 - 35 minutes - Subjective Interval history: Patient awake. Alert and oriented. Reports that his pain is much better to his abdomen but states that belly is tight and feels full with pressure. Patient with pancreatic cancer. S/P abdominal pleurx catheter inserted for malignant ascites. Patient reports being able to get up and ambulate around the room. - Constitutional Vitals: Stable General appearance: Present: cooperative, mild distress Exam: Abdominal distention and reports belly feels full with pressure. + fluid wave. - Head Head exam: Present: atraumatic, normal inspection - Eye Eye exam: Present: PERRL - ENT ENT exam: Present: mucous membranes moist - Neck Neck exam: Present: full ROM - Respiratory Respiratory exam: Present: CTAB - Cardiovascular Cardiovascular exam: Present: RRR, +S1, +S2 - Expanded Cardiovascular Exam Peripheral pulses: 1+: Femoral (L) PM, Femoral (R) PM, Posterior Tibialis (L), Posterior Tibialis (R), 2+: Carotid (L) PM, Carotid (R) PM, Radial (L), Radial ( R), Dorsalis Pedis (L) PM, Dorsalis Pedis (R) PM - GI/Abdominal GI/Abdominal exam: Present: distended, firm, normal bowel sounds, rebound, tenderness Additional comments: + fluid wave - Extremities Exam Extremities exam: Present: full ROM, pedal edema (3+ pedal edema) - Back Exam Back exam: Present: full ROM - Neurological Exam Neurological exam: Present: alert, CN II-XII intact, oriented X3 - Psychiatric Psychiatric exam: Present: normal affect - Skin Skin exam: Present: warm Palliative Quality Palliative Quality: Screen for Code Status: Yes, Screen for Goals of Care: Yes, Screen for Pain: Yes, If Pain Regimen Started, Initiate Bowel Regimen: Yes, Screen for Nausea/Vomitting: Yes Code Status: 01/05/17 11:29 Resuscitation Status: Active [RES] Stat Comment: Resuscitation Status: DNR-Comfort Care Consult Discharge Plan - Plan Referrals: Chandler Clark MD [Primary Care Provider] -
[2017-01-10] MEDS ORDERED: *HR* HYDROmorphone 2 MG TABLET PO PRN ×3 (10:52→14:55)
--- NOTE | 2017-01-10 11:38 | Event Note ---
Date of Encounter: 01/10/17 Time of Encounter: 11:00 Conducted bedside meeting with patient, and daughter. Discussed home transition with [facility] care tomorrow if patient tolerates pain plan. Durable medical equipment needs include: Hospital bed, bed side table, wheelchair, walker, Oxygen and Toilet support with rails. Discussed transition with f/u education on how to perform sterile pleurx fluid removal. verbalized understanding. will be at home to receive call for delivery of DME. Phone numbers - and Home - [phone]. Patient will transfer by ambulance. Family verbalized understanding. Patient eager to go home.
[2017-01-10] MEDS: 0.9 % Sodium Chloride 1,000 ML IVC SCH (14:47)
[2017-01-10] MEDS ORDERED: *HR* HYDROmorphone (PF) 1 MG/ML SYRINGE IVP PRN (14:53)
[2017-01-10] MEDS: *HR* LORazepam Oral Conc 2 MG/ML PO PRN (16:45)
[2017-01-10] MEDS ORDERED: *HR* HYDROmorphone 20 MG/20 ML PCA IVC PRN (16:47)
[2017-01-10] MEDS ORDERED: 0.9 % Sodium Chloride 1,000 ML ONE (17:29)
[2017-01-11] MEDS: *HR* Metoprolol 5 MG/5 ML VIAL IVP SCH ×2 (02:48→05:57)
[2017-01-11] MEDS: Metoclopramide 10 MG/2 ML VIAL IVP SCH ×2 (02:48→05:58)
[2017-01-11] MEDS: *HR* LORazepam Oral Conc 2 MG/ML PO PRN (02:48)
[2017-01-11] MEDS: Pantoprazole 40 MG VIAL IVP SCH (05:56)
[2017-01-11] MEDS: *HR* LORazepam 2 MG/ML VIAL IVP SCH (05:57)
[2017-01-11] MEDS: Sennosides/Docusate Sodium TABLET PO SCH ×2 (08:59→22:01)
[2017-01-11] MEDS: Dexamethasone 4 MG/ML VIAL IVP SCH (09:00)
[2017-01-11] MEDS: FentaNYL PATCH 100 MCG, FentaNYL PATCH 25 MCG TD SCH (09:02)
[2017-01-11] MEDS ORDERED: *HR* LORazepam 1 MG TABLET PO PRN (09:41)
[2017-01-11] MEDS ORDERED: *HR* HYDROmorphone 2 MG/ML SYRINGE IVP SCH (09:45)
[2017-01-11] MEDS ORDERED: *HR* HYDROmorphone 20 MG/20 ML PCA IVC PRN (09:45)
--- NOTE | 2017-01-11 09:49 | Palliative Progress Note ---
<Joe Cabrera - Last Filed: 01/11/17 09:46> Date of Encounter: 01/11/17 Time of Encounter: 09:46 - Assessment and plan (1) Cancer associated pain Current Visit: Yes Status: Acute Assessment and plan: Discussed with patient the need to transition from BRICK HANDLER pain medication to oral pain medication. Currently the plan will be to decrease frequency of BRICK HANDLER pump and start patient on oral Dilaudid. Continue fentanyl patch at 125 g. (2) Ascites Current Visit: Yes Status: Acute Assessment and plan: Secondary to metastatic cancer to liver. Patient has a Pleurx catheter. Currently states his abdomen is not painful and the abdominal distention is not uncomfortable. Site around Pleurx catheter is clean and intact. There is no surrounding erythema. Qualifiers: Ascites type: malignant Qualified Code(s): R18.0 - Malignant ascites (3) Nausea & vomiting Current Visit: Yes Status: Resolved Assessment and plan: Currently patient nausea and vomiting have resolved. He is tolerating it liquid diet. He has not used when necessary nausea medication for the last 5 days. We will discontinue Decadron and Reglan and Zofran. Patient will have Phenergan as needed for nausea. Qualifiers: Vomiting type: unspecified Vomiting Intractability: non-intractable Qualified Code(s): R11.2 - Nausea with vomiting, unspecified (4) Goals of care, counseling/discussion Current Visit: Yes Status: Acute Assessment and plan: Patient understands goal will be to transition to oral pain medications before going home. He was told possible discharge tomorrow or on Wednesday. (5) Anxiety Current Visit: Yes Status: Acute Assessment and plan: Patient reports significant anxiety secondary to having his pain under control when he goes home. Patient also reports difficulty sleeping and anxiety upon waking up. We will start patient on Remeron 15 mg at night. (6) Pancreatic cancer metastasized to liver Current Visit: Yes Status: Suspected - Time Spent With Patient Total time spent is greater than 50% in coordination of care (as documented) at patient's floor/unit and/or counseling patient: - Subjective Interval history: Patient. This morning. Concerned his pain will be out of control when he goes home. We can patient became anxious after Dilaudid BRICK HANDLER pump was stopped and after several attempts of increasing his oral pain medications, the BRICK HANDLER pump was restarted. Patient states his nausea and vomiting is under control. Currently his pain is under control but he does complain of soreness of his back and abdomen. He denies any other complaints. - Additional findings Additional findings: General: Pleasant, tearful, anxious Heart: Regular rate and rhythm with no murmur Lungs: Clear to auscultation bilaterally Abdomen: Soft nontender, distended, positive bowel sounds. Left lower quadrant Pleurx catheter Skin: warm and dry Extremities: 2+ pedal edema Vascular: Pedal and radial pulses 2 out of 4 Palliative Quality Palliative Quality: Screen for Code Status: Yes, Screen for Goals of Care: Yes, Screen for Pain: Yes, If Pain Regimen Started, Initiate Bowel Regimen: Yes, Screen for Nausea/Vomitting: Yes Code Status: 01/05/17 11:29 Resuscitation Status: Active [RES] Stat Comment: Resuscitation Status: DNR-Comfort Care Consult Discharge Plan - Plan Referrals: Chandler Clark MD [Primary Care Provider] - <Santino Goncalves - Last Filed: 01/11/17 11:43> Date of Encounter: 01/11/17 - Assessment and plan (1) Abdominal pain Current Visit: No Status: Acute Qualifiers: Abdominal location: generalized Qualified Code(s): R10.84 - Generalized abdominal pain (2) Chronic thoracic back pain Current Visit: No Status: Chronic Qualifiers: Back pain laterality: bilateral Qualified Code(s): M54.6 - Pain in thoracic spine; G89.29 - Other chronic pain; G89.29 - Other chronic pain (3) Ascites Current Visit: Yes Status: Acute Qualifiers: Ascites type: malignant Qualified Code(s): R18.0 - Malignant ascites (4) Nausea & vomiting Current Visit: Yes Status: Resolved Qualifiers: Vomiting type: unspecified Vomiting Intractability: non-intractable Qualified Code(s): R11.2 - Nausea with vomiting, unspecified (5) Intractable nausea and vomiting Current Visit: No Status: Acute Qualifiers: Vomiting type: unspecified Qualified Code(s): R11.2 - Nausea with vomiting , unspecified (6) Goals of care, counseling/discussion Current Visit: Yes Status: Acute (7) Adenocarcinoma of unknown primary Current Visit: No Status: Acute - Time Spent With Patient Total time spent is greater than 50% in coordination of care (as documented) at patient's floor/unit and/or counseling patient: - Attending Attestation I examined this patient and my medical decision-making was reviewed with the Resident Physician. I agree with the documented findings, disposition and treatment plan as described except to the extent set forth below. Palliative Quality Code Status: 01/05/17 11:29 Resuscitation Status: Active [RES] Stat Comment: Resuscitation Status: DNR-Comfort Care
[2017-01-11] MEDS: *HR* LORazepam 1 MG TABLET PO SCH ×3 (12:08→22:01)
[2017-01-11] MEDS: *HR* HYDROmorphone 2 MG TABLET PO SCH ×2 (12:08→17:04)
[2017-01-11] MEDS: Mirtazapine 15 MG TABLET PO SCH (22:01)
[2017-01-12] MEDS: *HR* HYDROmorphone 2 MG TABLET PO SCH ×2 (00:55→06:01)
--- NOTE | 2017-01-12 09:39 | Palliative Progress Note ---
<Joe Cabrera - Last Filed: 01/12/17 14:01> Date of Encounter: 01/12/17 Time of Encounter: 09:36 - Assessment and plan (1) Cancer associated pain Current Visit: Yes Status: Acute Assessment and plan: Discontinue INSULATION BOARD CALENDER OPERATOR pump. Increase fentanyl patch 150 g Change by mouth Dilaudid 25 mg every hour when necessary. (2) Ascites Current Visit: Yes Status: Acute Assessment and plan: Secondary to metastatic cancer to liver. Patient has a Pleurx catheter. Currently states his abdomen is not painful and the abdominal distention is not uncomfortable. Site around Pleurx catheter is clean and intact. There is no surrounding erythema. Qualifiers: Ascites type: malignant Qualified Code(s): R18.0 - Malignant ascites (3) Nausea & vomiting Current Visit: Yes Status: Resolved Assessment and plan: Tolerating diet, continue when necessary Phenergan. Qualifiers: Vomiting type: unspecified Vomiting Intractability: non-intractable Qualified Code(s): R11.2 - Nausea with vomiting, unspecified (4) Goals of care, counseling/discussion Current Visit: Yes Status: Acute Assessment and plan: Patient understands goal will be to transition to oral pain medications before going home. Patient has decreased in frequency of use of INSULATION BOARD CALENDER OPERATOR pump. Will be to transition off INSULATION BOARD CALENDER OPERATOR pump before going home. (5) Anxiety Current Visit: Yes Status: Acute (6) Pancreatic cancer metastasized to liver Current Visit: Yes Status: Suspected - Time Spent With Patient Total time spent is greater than 50% in coordination of care (as documented) at patient's floor/unit and/or counseling patient: - Subjective Interval history: Patient reports no problems this morning. States he slept well but it was noisy overnight. Denies any needs. - Additional findings Additional findings: General: Pleasant without distress Heart: Regular rate and rhythm with no murmur Lungs: Clear to auscultation bilaterally Abdomen: Soft nontender, distended left lower abdominal Pleurx catheter without surrounding erythema Skin: warm and dry Extremities: 2+ pedal edema Neuro: Alert oriented 3 Vascular: Pedal and radial pulses 2 out of 4 Psych: Depressed mood Palliative Quality Palliative Quality: Screen for Code Status: Yes, Screen for Goals of Care: Yes, Screen for Pain: Yes, If Pain Regimen Started, Initiate Bowel Regimen: Yes, Screen for Nausea/Vomitting: Yes Code Status: 01/05/17 11:29 Resuscitation Status: Active [RES] Stat Comment: Resuscitation Status: DNR-Comfort Care Consult Discharge Plan - Plan Referrals: Chandler Clark MD [Primary Care Provider] - <Santino Goncalves - Last Filed: 01/12/17 15:12> Date of Encounter: 01/12/17 - Assessment and plan (1) Abdominal pain Current Visit: No Status: Acute Assessment and plan: pt getting 5 mg dilaudid q 1 h prn pain not 25 Qualifiers: Abdominal location: generalized Qualified Code(s): R10.84 - Generalized abdominal pain (2) Chronic thoracic back pain Current Visit: No Status: Chronic Qualifiers: Back pain laterality: bilateral Qualified Code(s): M54.6 - Pain in thoracic spine; G89.29 - Other chronic pain; G89.29 - Other chronic pain (3) Ascites Current Visit: Yes Status: Acute Qualifiers: Ascites type: malignant Qualified Code(s): R18.0 - Malignant ascites (4) Nausea & vomiting Current Visit: Yes Status: Resolved Qualifiers: Vomiting type: unspecified Vomiting Intractability: non-intractable Qualified Code(s): R11.2 - Nausea with vomiting, unspecified (5) Intractable nausea and vomiting Current Visit: No Status: Acute Qualifiers: Vomiting type: unspecified Qualified Code(s): R11.2 - Nausea with vomiting , unspecified (6) Goals of care, counseling/discussion Current Visit: Yes Status: Acute (7) Adenocarcinoma of unknown primary Current Visit: No Status: Acute - Time Spent With Patient Total time spent is greater than 50% in coordination of care (as documented) at patient's floor/unit and/or counseling patient: - Attending Attestation I examined this patient and my medical decision-making was reviewed with the Resident Physician. I agree with the documented findings, disposition and treatment plan as described except to the extent set forth below. error in meds should be dilaudid 5 mg q 1hr prn pain (ordered correctly typo in the report Palliative Quality Code Status: 01/05/17 11:29 Resuscitation Status: Active [RES] Stat Comment: Resuscitation Status: DNR-Comfort Care
[2017-01-12] MEDS: Sennosides/Docusate Sodium TABLET PO SCH ×2 (10:31→22:20)
[2017-01-12] MEDS: *HR* LORazepam 1 MG TABLET PO SCH ×4 (10:32→22:20)
[2017-01-12] MEDS ORDERED: *HR* FentaNYL PATCH 75 MCG PATCH TD SCH (11:00)
[2017-01-12] MEDS: *HR* HYDROmorphone 2 MG TABLET PO PRN ×2 (12:48→22:20)
[2017-01-12] MEDS: Mirtazapine 15 MG TABLET PO SCH (22:20)
[2017-01-13 07:39] VITALS: BP 142/92
[2017-01-13] MEDS: *HR* HYDROmorphone 2 MG TABLET PO PRN ×2 (08:57→11:43)
[2017-01-13] MEDS: *HR* LORazepam 1 MG TABLET PO SCH ×2 (08:59→13:57)
--- NOTE | 2017-01-13 09:30 | Discharge Summary ---
<Joe Cabrera - Last Filed: 01/13/17 09:21> Date of Encounter: 01/13/17 Time of Encounter: 09:21 - Discharge Diagnosis (1) Cancer associated pain Priority: Primary Status: Acute (2) Ascites Priority: Secondary Status: Acute Qualifiers: Ascites type: malignant Qualified Code(s): R18.0 - Malignant ascites (3) Nausea & vomiting Priority: Secondary Status: Resolved Qualifiers: Vomiting type: unspecified Vomiting Intractability: non-intractable Qualified Code(s): R11.2 - Nausea with vomiting, unspecified (4) Goals of care, counseling/discussion Priority: Secondary Status: Acute (5) Anxiety Priority: Secondary Status: Acute (6) Pancreatic cancer metastasized to liver Priority: Secondary Status: Suspected - Discharge Medications Prescriptions: LORazepam Oral Conc [Ativan Oral Conc] 1 mg PO Q6HR #30 mls FentaNYL PATCH [Duragesic] 1 each TD Q72H #3 patch.td72 FentaNYL PATCH [Duragesic] 1 each TD Q72H #3 patch.td72 HYDROmorphone [Dilaudid] 4 mg PO Q1H #40 tablet LORazepam [Ativan] 1 mg PO Q2H PRN #40 tablet PRN Reason: Anxiety LORazepam [Ativan] 1 mg PO QID #20 tablet Mirtazapine [Remeron] 15 mg PO HS #5 tab.rapdis Sennosides/Docusate Sodium [Senna Plus] 2 each PO BID #20 tablet Home Medications: Gabapentin [Neurontin] 600 - 1,200 mg PO TID 08/10/16 [History] Lisinopril [Zestril] 5 mg PO DAILY 08/10/16 [History] Ferrous Gluconate 324 mg PO DAILY 12/14/16 [History] Polyethylene Glycol 3350 [MiraLAX] 17 gm PO QPM 12/14/16 [History] Furosemide [Lasix] 20 mg PO DAILY 12/25/16 [History] Spironolactone [Aldactone] 50 mg PO DAILY 12/25/16 [History] Promethazine [Phenergan] 25 mg PO Q6HR #10 tablet 01/01/17 [Rx] Promethazine [Phenergan] 25 mg RC Q6HR #10 supp.rect 01/01/17 [Rx] Dexamethasone [Decadron] 10 mg IVP DAILY vial 01/05/17 [Rx] Enoxaparin [Lovenox] 90 mg SQ Q12H syringe 01/05/17 [Rx] HYDROmorphone (PF) [Dilaudid] 1 mg IVP Q2H PRN syringe 01/05/17 [Rx] HYDROmorphone 20 MG/20 ML SPECIAL EQUIPMENT TECHNICIAN [Dilaudid 20 MG/20 ML SPECIAL EQUIPMENT TECHNICIAN] 1 each IVC PROTOCOL PRN onsite health coach.vial 01/05/17 [Rx] LORazepam [Ativan] 0.5 mg IVP Q6HR vial 01/05/17 [Rx] Metoclopramide [Reglan] 10 mg IVP Q6H vial 01/05/17 [Rx] Metoprolol [Lopressor] 5 mg IVP Q6HR vial 01/05/17 [Rx] Naloxone [Narcan] 0.4 mg IVP Q2MIN PRN inj 01/05/17 [Rx] Ondansetron [Zofran] 4 mg IVP Q4H PRN vial 01/05/17 [Rx] OxyCODONE Oral Soln [OxyCODONE ORAL SOLN] 30 mg PO Q4H PRN ud.liq 01/05/17 [Rx] FentaNYL PATCH [Duragesic] 1 each TD Q72H #3 patch.td72 01/13/17 [Rx] FentaNYL PATCH [Duragesic] 1 each TD Q72H #3 patch.td72 01/13/17 [Rx] HYDROmorphone [Dilaudid] 4 mg PO Q1H #40 tablet 01/13/17 [Rx] LORazepam Oral Conc [Ativan Oral Conc] 1 mg PO Q6HR #30 mls 01/13/17 [Rx] LORazepam [Ativan] 1 mg PO Q2H PRN #40 tablet 01/13/17 [Rx] LORazepam [Ativan] 1 mg PO QID #20 tablet 01/13/17 [Rx] Mirtazapine [Remeron] 15 mg PO HS #5 tab.rapdis 01/13/17 [Rx] Sennosides/Docusate Sodium [Senna Plus] 2 each PO BID #20 tablet 01/13/17 [Rx] Allergies/Adverse Reactions: 3 Allergy/AdvReac Type Severity Reaction Status Date / Time morphine Allergy Rash Verified 01/02/17 06:25 - Impressions ITS Impressions Guidance Needle Placement Ultrasound 01/07/17 00:00 IMPRESSION: Successful ultrasound and fluoroscopically guided abdominal PleurX catheter placement. D/ / 01/07/2017 15:21:54 Isabella Joshi MD / sri Interpreting Provider: Isabella Joshi MD Insertion Tunneled Catheter 01/07/17 00:00 IMPRESSION: Successful ultrasound and fluoroscopically guided abdominal PleurX catheter placement. D/ / 01/07/2017 15:21:54 Isabella Joshi MD / sri Interpreting Provider: Isabella Joshi MD Internal Medicine - DS: Prov Date of admission: 01/05/17 15:00 Primary care physician: Chandler Clark Admitting clinician: Santino Goncalves Attending physician on admission: Santino Goncalves Consults: 01/05/17 11:29 Consult to Palliative Care [CONS] Routine Comment: Consulting Provider: Palliative Care [place] Reason for Consult: coverage Call Completed: Yes 01/07/17 08:49 Consult to Interventional Radiology [CONS] Stat Consulting Provider: Radiology Interventional [place] Reason for Consult: eval for and place pleurex type catheter in abd of hospice patient Time Notified: 08:51 Call Completed: Yes Attending physician on discharge: Santino Goncalves Discharging clinician: Joe Cabrera Anticipated date of discharge: 01/13/17 - Patient Status Disposition: Hospice - Home Condition: Serious Functional capacity at discharge: wheelchair bound Overall status at discharge: other (terminal cancer: patient's pain under control) - Discharge Instructions Follow Up With: Chandler Clark MD [Primary Care Provider] - - Diet and Activity Activity: increase activity as tolerated Diet: regular diet - Hospital Course Hospital course: Mr. 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 Patient initially was placed on diluaded SPECIAL EQUIPMENT TECHNICIAN pump and fentanyl patch for management of abdominal pain 2nd to cancer. Patient was discovered to have hx of chronic back pain and extensive use of narcotic analgesia for this. Fentanyl patch was titrated up and patient was transitioned to by mouth dilauded as needed. Furthermore, his nausea and vomiting was managed successfully and he was able to be weaned off of nausea treatment and start on full liquid diet. Patient has not had nausea for several days now. Last , patient ascites 2nd to metastasis to liver was treated with a pleurex catheter as he had required 3 paracentesis in the past month. Patient was also started on remeron to help improve his sleep. Plan: Patient will be discharged home today as his pain regimen adequately controls his pain. He is tolerating his diet and N/V has resolved. - Time Spent with Patient Total time spent providing and/or coordinating discharge services: Internal Medicine - DS: Exam - Constitutional Vitals: Vital Signs Temp Pulse Resp BP Pulse Ox 01/13/17 07:34 97.9 F 93 13 142/92 95 01/12/17 20:24 98.1 F 89 14 128/85 93 Intake and Output 01/12/17 01/13/17 01/13/17 23:59 07:59 15:59 Intake Total 150 / 150 0 / 0 Output Total 300 / 300 0 / 0 Balance -150 / -150 0 / 0 Intake: Oral 150 / 150 0 / 0 Output: Urine 300 / 300 0 / 0 Other: Meal PUDDING WITH MEDS # Voids 1 - Other Additional findings: General: pleasant male, depressed mood HEENT: Head atraumatic, normocephalic, EOMI, PERRL, Moist Mucous Membranes, Heart: Regular rate and rhythm with no murmur Lungs: Clear to auscultation bilaterally Abdomen: Soft nontender, distended, + BS. RLQ plurex catheter Skin: warm and dry Extremities: 2+ pedal edema Neuro: Alert oriented 3 Vascular: Pedal and radial pulses 2 out of 4 Pych: Depressed mood <Santino Goncalves - Last Filed: 01/13/17 09:49> Date of Encounter: 01/13/17 - Discharge Diagnosis (1) Abdominal pain Status: Acute Qualifiers: Abdominal location: generalized Qualified Code(s): R10.84 - Generalized abdominal pain (2) Chronic thoracic back pain Status: Chronic Qualifiers: Back pain laterality: bilateral Qualified Code(s): M54.6 - Pain in thoracic spine; G89.29 - Other chronic pain; G89.29 - Other chronic pain (3) Ascites Status: Acute Qualifiers: Ascites type: malignant Qualified Code(s): R18.0 - Malignant ascites (4) Nausea & vomiting Status: Resolved Qualifiers: Vomiting type: unspecified Vomiting Intractability: non-intractable Qualified Code(s): R11.2 - Nausea with vomiting, unspecified (5) Intractable nausea and vomiting Status: Acute Qualifiers: Vomiting type: unspecified Qualified Code(s): R11.2 - Nausea with vomiting , unspecified (6) Goals of care, counseling/discussion Status: Acute (7) Adenocarcinoma of unknown primary Status: Acute - Impressions ITS Impressions Guidance Needle Placement Ultrasound 01/07/17 00:00 IMPRESSION: Successful ultrasound and fluoroscopically guided abdominal PleurX catheter placement. D/ / 01/07/2017 15:21:54 Isabella Joshi MD / sri Interpreting Provider: Isabella Joshi MD Insertion Tunneled Catheter 01/07/17 00:00 IMPRESSION: Successful ultrasound and fluoroscopically guided abdominal PleurX catheter placement. D/ / 01/07/2017 15:21:54 Isabella Joshi MD / sri Interpreting Provider: Isabella Joshi MD Internal Medicine - DS: Prov Date of admission: 01/05/17 15:00 Primary care physician: Chandler Clark Consults: 01/05/17 11:29 Consult to Palliative Care [CONS] Routine Comment: Consulting Provider: Palliative Care [place] Reason for Consult: coverage Call Completed: Yes 01/07/17 08:49 Consult to Interventional Radiology [CONS] Stat Consulting Provider: Radiology Interventional Cols Reason for Consult: eval for and place pleurex type catheter in abd of hospice patient Time Notified: 08:51 Call Completed: Yes - Hospital Course Hospital course: Mr. Jade is a 61 year old male - Time Spent with Patient Total time spent providing and/or coordinating discharge services: Internal Medicine - DS: Exam - Constitutional Vitals: Vital Signs Temp Pulse Resp BP Pulse Ox 01/13/17 07:34 97.9 F 93 13 142/92 95 01/12/17 20:24 98.1 F 89 14 128/85 93 Intake and Output 01/12/17 01/13/17 01/13/17 23:59 07:59 15:59 Intake Total 150 / 150 0 / 0 Output Total 300 / 300 0 / 0 Balance -150 / -150 0 / 0 Intake: Oral 150 / 150 0 / 0 Output: Urine 300 / 300 0 / 0 Other: Meal PUDDING WITH MEDS # Voids 1 - Attending Attestation I examined this patient and my medical decision-making was reviewed with the Resident Physician. I agree with the documented findings, disposition and treatment plan as described except to the extent set forth below.
[2017-01-13] MEDS ORDERED: Ondansetron 4 MG/2 ML VIAL ONE (10:37)
[2017-01-13] MEDS ORDERED: Ondansetron ODT 4 MG TAB.RAPDIS SL PRN (10:40)
[2017-01-13] MEDS: Sennosides/Docusate Sodium TABLET PO SCH (11:13)
--- NOTE | 2017-01-20 07:57 | Pallative History & Physical ---
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 Biopsies pending. We will have meeting with family today discussions of goals of care. Transition to hospice (2) Nausea & vomiting Current visit: Yes Status: Acute Improved. Patient was started on Ativan for anticipatory nausea and also Reglan. -Patient was confused this morning was likely secondary to addition of new medications including Reglan and Ativan. We have decreased the dose of Ativan 0.5 mg four times a day. Scopolamine as discontinued Zofran and Phenergan are changed when necessary. Currently we will continue IV fluids. We will also test the patient can tolerate ice chips and sips of water. She is able to then we can advance his diet. Qualifiers: Vomiting type: unspecified Vomiting Intractability: non-intractable Qualified Code(s): R11.2 - Nausea with vomiting, unspecified (3) Abdominal pain Current visit: Yes Status: Acute Secondary to pancreatic cancer patient was arching his back, appeared agitated as morning. Patient is using a milligram of Dilaudid an hour via SPEEDOMETER INSPECTOR and also has breakthrough continue current regimen: will consider changing once patient is less confused. Qualifiers: Abdominal location: generalized Qualified Code(s): R10.84 - Generalized abdominal pain (4) DVT (deep venous thrombosis) Current visit: Yes Status: Acute was on lovenox for right peroneal dvt patient states he does not want this to be continued. Qualifiers: DVT location: lower extremity Affected thrombotic vein of extremity: other lower extremity vein Chronicity: acute Laterality: right Qualified Code(s) : I82.491 - Acute embolism and thrombosis of other specified deep vein of right lower extremity (5) Aspiration pneumonia Current visit: Yes Status: Suspected on levaquin and metronidazole for suspected aspiration pna will d/c as patient does not want this treatment comfort care O2 supplementation if necessary Qualifiers: Aspiration pneumonia type: unspecified Laterality: unspecified laterality Lung location: unspecified part of lung Qualified Code(s): J69.0 - Pneumonitis due to inhalation of food and vomit (6) Goals of care, counseling/discussion Current visit: Yes Status: Acute Able to have conversation with family (daughter and ). Patient does not want chemotherapy plus is likely not eligible if primary tumor is of pacreaticobiliary in origin. transition to hospice GIP Qualifiers: Abdominal location: generalized Qualified Code(s): R10.84 - Generalized abdominal pain (2) Chronic thoracic back pain Status: Chronic see above Qualifiers: Back pain laterality: bilateral Qualified Code(s): M54.6 - Pain in thoracic spine; G89.29 - Other chronic pain; G89.29 - Other chronic pain (3) Ascites Status: Acute see above Qualifiers: Ascites type: malignant Qualified Code(s): R18.0 - Malignant ascites (4) Nausea & vomiting Status: Resolved see above Qualifiers: Vomiting type: unspecified Vomiting Intractability: non-intractable Qualified Code(s): R11.2 - Nausea with vomiting, unspecified (5) Intractable nausea and vomiting Status: Acute Qualifiers: Vomiting type: unspecified Qualified Code(s): R11.2 - Nausea with vomiting , unspecified (6) Goals of care, counseling/discussion Status: Acute see above (7) Adenocarcinoma of unknown primary Status: Acute Internal Medicine - H&P: HPI Admitted From: Intrahospital Transfer Plans for Post Hospital Care: Hospice - Home History of present illness: Mr. Jade is a 61 year old male *LIVE* [facility] Event Note Patient Name: Almas Jade Date of : 1955 Patient Status: Inpatient Attending Provider: Santino Goncalves Date: 01/05/17 14:39 Initialization Date: 01/05/17 14:39 Date of Encounter: 01/05/17 Time of Encounter: 14:39 hand p done on former account this will serve as the h and p [address] [address] Pallative History & Physical ISigned PRELIMINARY DRAFT REPORT UNTIL ELECTRONICALLY SIGNED PATIENT: Almas Jade MR#: [id number] : 1955 AGE/SEX: 61 / M ADMITTED: 01/02/17 1120 OUTSIDE LOCN: LOCATION: [address] [place], [place] [id number] ATTENDING: Val Vital CNP cc: ; ~ Date of Encounter: 01/05/17 Time of Encounter: 12:46 Assessment and Plan (1) Pancreatic cancer metastasized to liver Current visit: Yes Status: Acute Metastatic adenocarcinoma with unknown primary 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 Biopsies pending. We will have meeting with family today discussions of goals of care. Transition to hospice (2) Nausea & vomiting Current visit: Yes Status: Acute Improved. Patient was started on Ativan for anticipatory nausea and also Reglan. -Patient was confused this morning was likely secondary to addition of new medications including Reglan and Ativan. We have decreased the dose of Ativan 0.5 mg four times a day. Scopolamine as discontinued Zofran and Phenergan are changed when necessary. Currently we will continue IV fluids. We will also test the patient can tolerate ice chips and sips of water. She is able to then we can advance his diet. Qualifiers: Vomiting type: unspecified Vomiting Intractability: non-intractable Qualified Code(s): R11.2 - Nausea with vomiting, unspecified (3) Abdominal pain Current visit: Yes Status: Acute Secondary to pancreatic cancer patient was arching his back, appeared agitated as morning. Patient is using a milligram of Dilaudid an hour via SPEEDOMETER INSPECTOR and also has breakthrough continue current regimen: will consider changing once patient is less confused. Qualifiers: Abdominal location: generalized Qualified Code(s): R10.84 - Generalized abdominal pain (4) DVT (deep venous thrombosis) Current visit: Yes Status: Acute was on lovenox for right peroneal dvt patient states he does not want this to be continued. Qualifiers: DVT location: lower extremity Affected thrombotic vein of extremity: other lower extremity vein Chronicity: acute Laterality: right Qualified Code(s) : I82.491 - Acute embolism and thrombosis of other specified deep vein of right lower extremity (5) Aspiration pneumonia Current visit: Yes Status: Suspected on levaquin and metronidazole for suspected aspiration pna will d/c as patient does not want this treatment comfort care O2 supplementation if necessary Qualifiers: Aspiration pneumonia type: unspecified Laterality: unspecified laterality Lung location: unspecified part of lung Qualified Code(s): J69.0 - Pneumonitis due to inhalation of food and vomit (6) Goals of care, counseling/discussion Current visit: Yes Status: Acute Able to have conversation with family (daughter and ). Patient does not want chemotherapy plus is likely not eligible if primary tumor is of pacreaticobiliary in origin. transition to hospice GIP Internal Medicine - H&P: HPI Chief complaint: N/V Admitted From: Intrahospital Transfer History of present illness: Mr. Jade is a 61 year old male with recently diagnosed metastatic andenocarcinoma unknown primary but likely pacreaticobiliary in origin presented to [facility] and then transferred to [facility] for evaluation of nausea and vomiting. Oncology states patient has poor prognosis and is not candidate for chemotherapy and does not want chemotheraphy. Patient was started on dilauded SPEEDOMETER INSPECTOR and started on anti-emetics. Patient decided to transition to hospice care and was made GIP. Past Med Surg Social Fam HX - Past Medical History Medical history: cancer, hypertension, other Psychiatric history: no psych history - Past Surgical History Surgical History: no surgical history - Social History Smoking Status: Never smoker Smokeless Tobacco Status: No Alcohol use: none Drug use: none - Family History Father Living Status: Hx Family Cardiac Disorders: Yes ([place] at age 52) Mother Living Status: Hx Family Cardiac Disorders: No Hx Family Cancer: No Brother Hx Family Cancer: Yes (Lung cancer) Sister Hx Family Cancer: Yes (Lung cancer) Internal Medicine - H&P: Meds Gabapentin [Neurontin] 600 - 1,200 mg PO TID 08/10/16 [History] Lisinopril [Zestril] 5 mg PO DAILY 08/10/16 [History] Ferrous Gluconate 324 mg PO DAILY 12/14/16 [History] Polyethylene Glycol 3350 [MiraLAX] 17 gm PO QPM 12/14/16 [History] Furosemide [Lasix] 20 mg PO DAILY 12/25/16 [History] Spironolactone [Aldactone] 50 mg PO DAILY 12/25/16 [History] Promethazine [Phenergan] 25 mg PO Q6HR #10 tablet 01/01/17 [Rx] Promethazine [Phenergan] 25 mg RC Q6HR #10 supp.rect 01/01/17 [Rx] Dexamethasone [Decadron] 10 mg IVP DAILY vial 01/05/17 [Rx] Enoxaparin [Lovenox] 90 mg SQ Q12H syringe 01/05/17 [Rx] HYDROmorphone (PF) [Dilaudid] 1 mg IVP Q2H PRN syringe 01/05/17 [Rx] HYDROmorphone 20 MG/20 ML SPEEDOMETER INSPECTOR [Dilaudid 20 MG/20 ML SPEEDOMETER INSPECTOR] 1 each IVC PROTOCOL PRN outfitter cabin.vial 01/05/17 [Rx] LORazepam [Ativan] 0.5 mg IVP Q6HR vial 01/05/17 [Rx] Metoclopramide [Reglan] 10 mg IVP Q6H vial 01/05/17 [Rx] Metoprolol [Lopressor] 5 mg IVP Q6HR vial 01/05/17 [Rx] Naloxone [Narcan] 0.4 mg IVP Q2MIN PRN inj 01/05/17 [Rx] Ondansetron [Zofran] 4 mg IVP Q4H PRN vial 01/05/17 [Rx] OxyCODONE Oral Soln [OxyCODONE ORAL SOLN] 30 mg PO Q4H PRN ud.liq 01/05/17 [Rx] Allergy/AdvReac Type Severity Reaction Status Date / Time morphine Allergy Rash Verified 01/02/17 06:25 Review of systems: Constitutional: Denies fever, chills HEENT: Denies headache, vision changes, neck pain, sore throat, rhinorrhea Heart: Denies chest pain palpitations Lungs: Denies shortness of breath, cough Abdomen: Reports abdomina lpain, nausea. denies vomiting Back: reports back pain Kidney: Denies dysuria, hematuria Skin: warm and dry Extremities: Denies swelling, pain Neuro: Denies numbness, and tingling Palliative Care-Exam - Constitutional Vitals: Temp Pulse Resp BP Pulse Ox 98.2 F 73 14 179/91 94 01/05/17 11:55 01/05/17 11:55 01/05/17 11:55 01/05/17 11:55 11:55 General appearance: Present: mild distress - Other Additional findings: General: mild distress HEENT: Head atraumatic, normocephalic, EOMI, PERRL, dry mucous membranes Heart: Regular rate and rhythm with no murmur Lungs:CTAB Abdomen: Soft nontender, nondistended positive bowel sounds Skin: warm and dry Extremities: 1+ pedal edema Neuro: alert oriented 3, Vascular: Pedal and radial pulses 2 out of 4 Psych: anxious Internal Medicine - H&P: Reslt - Labs CBC & Chem 7: 01/03/17 03:32 [Image 1] - Impressions ITS Impressions Abdomen/Pelvis CT 01/02/17 16:01 IMPRESSION: 1. No evidence of acute bowel inflammation or obstruction. 2. Slight interval progression of peritoneal carcinomatosis since the study of 12/14/2016. 3. Stable intrahepatic metastatic disease. 4. Stable splenomegaly. 5. Interval increase in size of small bilateral pleural effusions with dependent airspace consolidation within the bilateral lower lobes, likely passive atelectasis, though underlying aspiration or pneumonia cannot be excluded. 6. Stable scattered bibasilar pulmonary nodules, concerning for intrapulmonary metastatic disease. 7. Interval enlargement of an osseous metastasis invading the right 7th rib. D/ / 01/02/2017 17:32:23 Jim Breaux MD / [facility] Interpreting Provider: Jim Breaux MD h and p was done on the wrong record event noteis the h and p however i am doing it again to fulfill the requirement Palliative Quality Palliative Quality: Screen for Code Status: Yes, Screen for Goals of Care: Yes, Screen for Pain: Yes, If Pain Regimen Started, Initiate Bowel Regimen: Yes, Screen for Nausea/Vomitting: Yes Code Status: 01/02/17 11:13 Resuscitation Status: Active [RES] Routine Comment: Patient stated to me he wants no CPR or ventilator Resuscitation Status: [id number] Documented By: Joe Cabrera DO Signed By: <Electronically signed by Joe Cabrera> 01/05/17 1335 DD/ 1246 Initialized By: [id number] Past Med Surg Social Fam HX - Past Medical History Medical history: cancer, hypertension, other Psychiatric history: no psych history - Past Surgical History Surgical History: no surgical history - Social History Smoking Status: Never smoker Smokeless Tobacco Status: No Alcohol use: none Drug use: none - Family History Father Living Status: Hx Family Cardiac Disorders: Yes ([place] at age 52) Mother Living Status: Hx Family Cardiac Disorders: No Hx Family Cancer: No Brother Hx Family Cancer: Yes (Lung cancer) Sister Hx Family Cancer: Yes (Lung cancer) Internal Medicine - H&P: Meds Gabapentin [Neurontin] 600 - 1,200 mg PO TID 08/10/16 [History] Lisinopril [Zestril] 5 mg PO DAILY 08/10/16 [History] Ferrous Gluconate 324 mg PO DAILY 12/14/16 [History] Polyethylene Glycol 3350 [MiraLAX] 17 gm PO QPM 12/14/16 [History] Furosemide [Lasix] 20 mg PO DAILY 12/25/16 [History] Spironolactone [Aldactone] 50 mg PO DAILY 12/25/16 [History] Promethazine [Phenergan] 25 mg PO Q6HR #10 tablet 01/01/17 [Rx] Promethazine [Phenergan] 25 mg RC Q6HR #10 supp.rect 01/01/17 [Rx] Dexamethasone [Decadron] 10 mg IVP DAILY vial 01/05/17 [Rx] Enoxaparin [Lovenox] 90 mg SQ Q12H syringe 01/05/17 [Rx] HYDROmorphone (PF) [Dilaudid] 1 mg IVP Q2H PRN syringe 01/05/17 [Rx] HYDROmorphone 20 MG/20 ML SPEEDOMETER INSPECTOR [Dilaudid 20 MG/20 ML SPEEDOMETER INSPECTOR] 1 each IVC PROTOCOL PRN outfitter cabin.vial 01/05/17 [Rx] LORazepam [Ativan] 0.5 mg IVP Q6HR vial 01/05/17 [Rx] Metoclopramide [Reglan] 10 mg IVP Q6H vial 01/05/17 [Rx] Metoprolol [Lopressor] 5 mg IVP Q6HR vial 01/05/17 [Rx] Naloxone [Narcan] 0.4 mg IVP Q2MIN PRN inj 01/05/17 [Rx] Ondansetron [Zofran] 4 mg IVP Q4H PRN vial 01/05/17 [Rx] OxyCODONE Oral Soln [OxyCODONE ORAL SOLN] 30 mg PO Q4H PRN ud.liq 01/05/17 [Rx] FentaNYL PATCH [Duragesic] 1 each TD Q72H #3 patch.td72 01/13/17 [Rx] FentaNYL PATCH [Duragesic] 1 each TD Q72H #3 patch.td72 01/13/17 [Rx] HYDROmorphone [Dilaudid] 4 mg PO Q1H #40 tablet 01/13/17 [Rx] LORazepam Oral Conc [Ativan Oral Conc] 1 mg PO Q6HR #30 mls 01/13/17 [Rx] LORazepam [Ativan] 1 mg PO Q2H PRN #40 tablet 01/13/17 [Rx] LORazepam [Ativan] 1 mg PO QID #20 tablet 01/13/17 [Rx] Mirtazapine [Remeron] 15 mg PO HS #5 tab.rapdis 01/13/17 [Rx] Sennosides/Docusate Sodium [Senna Plus] 2 each PO BID #20 tablet 01/13/17 [Rx] 3 Allergy/AdvReac Type Severity Reaction Status Date / Time morphine Allergy Rash Verified 01/02/17 06:25 Palliative Care-Exam - Constitutional Vitals: Temp Pulse Resp BP Pulse Ox 97.9 F 93 13 142/92 95 01/13/17 07:34 01/13/17 07:34 01/13/17 07:34 01/13/17 07:34 01/13/17 07:34 General appearance: Present: cooperative, mild distress Internal Medicine - H&P: Reslt - Impressions ITS Impressions Guidance Needle Placement Ultrasound 01/07/17 00:00 IMPRESSION: Successful ultrasound and fluoroscopically guided abdominal PleurX catheter placement. D/ / 01/07/2017 15:21:54 Isabella Joshi MD / [facility] Interpreting Provider: Isabella Joshi MD Insertion Tunneled Catheter 01/07/17 00:00 IMPRESSION: Successful ultrasound and fluoroscopically guided abdominal PleurX catheter placement. D/ / 01/07/2017 15:21:54 Isabella Joshi MD / [facility] Interpreting Provider: Isabella Joshi MD Palliative Quality Palliative Quality: Screen for Code Status: Yes, Screen for Goals of Care: Yes, Screen for Pain: Yes, If Pain Regimen Started, Initiate Bowel Regimen: Yes, Screen for Nausea/Vomitting: Yes Code Status: 01/05/17 11:29 Resuscitation Status: Active [RES] Stat Comment: Resuscitation Status: DNR-Comfort Care
== END 2017-01-13 14:49 | disposition hospice, home (50) | DRG 435 ==
LOC: 2ANU 15:00
PROVIDERS: ADMIT Family Medicine Hospice and Palliative Medicine; ATTEND Family Medicine Hospice and Palliative Medicine

== ENCOUNTER 2017-01-24 18:16 | Inpatient (IN) ==
[2017-01-24] MEDS ORDERED: 0.9 % Sodium Chloride 500 ML IVC ONE (20:25)
[2017-01-24] MEDS ORDERED: Ondansetron 4 MG/2 ML VIAL ONE (20:30)
[2017-01-24] MEDS ORDERED: 0.9 % Sodium Chloride 1,000 ML ONE (20:30)
[2017-01-24] MEDS ORDERED: *HR* FentaNYL PATCH 75 MCG PATCH TD SCH (20:45)
[2017-01-24] MEDS: Dexamethasone 4 MG/ML VIAL IVP SCH (21:02)
[2017-01-24] MEDS: Metoclopramide 10 MG/2 ML VIAL IVP SCH (21:02)
[2017-01-24] MEDS: Ondansetron 4 MG/2 ML VIAL IVP SCH (21:02)
--- NOTE | 2017-01-24 21:07 | Pallative History & Physical ---
Date of Encounter: 01/24/17 Time of Encounter: 20:20 Assessment and Plan (1) Intractable nausea and vomiting Status: Acute Patient with three day history of nausea and vomiting of brown liquid. Unable to hold fluids or food down. - Reglan 10 mg every 6 hrs - Zofran 4mg every 4 hours - Decradon 4 mg BID - Normal Saline 500 ml bolus then 100 ml/hr - NPO - HOB up - Bedside suction PRN - Anticipatory nausea - Ativan 0.5 mg every 6 hrs Monitor I & O Qualifiers: Vomiting type: unspecified Qualified Code(s): R11.2 - Nausea with vomiting , unspecified (2) Cancer associated pain Status: Acute Patient with Fentanyl patches 150 mcg placed today per hospice nurse. Dilaudid IVP PRN. (3) Ascites Status: Acute Patient with cancer induced malignant ascites. Abdomen distended and firm. Family reports attempted to drain pleurx catheter today but only drained 50 ml' s and was aborted as patient reported pain and discomfort. Will attempt tomorrow after patient feels better. Qualifiers: Ascites type: malignant Qualified Code(s): R18.0 - Malignant ascites (4) Goals of care, counseling/discussion Status: Acute Family at bedside. Explained patients condition and POC. They desire comfort care only and agree to management of nausea and vomiting. Patient is DNRCC - Comfort Care. (5) Pancreatic cancer metastasized to liver Status: Suspected Patient currently enrolled in Hospice care and is now admitted for treatment of intractable nausea and vomiting. Internal Medicine - H&P: HPI Chief complaint: Intractable Nausea and Vomiting Admitted From: Direct Admit Plans for Post Hospital Care: Hospice - Home History of present illness: Mr. 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 The patient is well known to our care team and was recently discharged home in the care of hospice. I was contacted by the hospice nurse that the patient had been experiencing intractable nausea and vomiting at home and has failed traditional home management with combination po, topical and rectal medications. The family is at bedside and reports that for the past three days the patient has been having moderate amounts of vomiting. They describe the emesis as light brown in color and thin liquid in consistency. Upon this consult, the patient is frail, weak and lethargic. He opens his eyes and verbalizes with a whisper then falls asleep. The family reports that the patient was up all night last night with vomiting. Based on the following information the patient has been directly admitted as a general inpatient hospice patient for intractable nausea and vomiting. A review of his medical record and history was completed. Past Med Surg Social Fam HX - Past Medical History Attestation: Yes The following information was validated with the patient. Source: old records reviewed, obtained from family Medical history: cancer, hypertension, other Psychiatric history: no psych history - Past Surgical History Surgical History: no surgical history - Social History Smoking Status: Never smoker Smokeless Tobacco Status: No Alcohol use: none Drug use: none - Family History Father Living Status: Hx Family Cardiac Disorders: Yes ([place] at age 52) Mother Living Status: Hx Family Cardiac Disorders: No Hx Family Cancer: No Brother Hx Family Cancer: Yes (Lung cancer) Sister Hx Family Cancer: Yes (Lung cancer) Internal Medicine - H&P: Meds Gabapentin [Neurontin] 600 - 1,200 mg PO TID 08/10/16 [History] Lisinopril [Zestril] 5 mg PO DAILY 08/10/16 [History] Ferrous Gluconate 324 mg PO DAILY 12/14/16 [History] Polyethylene Glycol 3350 [MiraLAX] 17 gm PO QPM 12/14/16 [History] Furosemide [Lasix] 20 mg PO DAILY 12/25/16 [History] Spironolactone [Aldactone] 50 mg PO DAILY 12/25/16 [History] Promethazine [Phenergan] 25 mg PO Q6HR #10 tablet 01/01/17 [Rx] Promethazine [Phenergan] 25 mg RC Q6HR #10 supp.rect 01/01/17 [Rx] Dexamethasone [Decadron] 10 mg IVP DAILY vial 01/05/17 [Rx] Enoxaparin [Lovenox] 90 mg SQ Q12H syringe 01/05/17 [Rx] HYDROmorphone (PF) [Dilaudid] 1 mg IVP Q2H PRN syringe 01/05/17 [Rx] HYDROmorphone 20 MG/20 ML HOSPICE BEREAVEMENT COORDINATOR [Dilaudid 20 MG/20 ML HOSPICE BEREAVEMENT COORDINATOR] 1 each IVC PROTOCOL PRN [employer].vial 01/05/17 [Rx] LORazepam [Ativan] 0.5 mg IVP Q6HR vial 01/05/17 [Rx] Metoclopramide [Reglan] 10 mg IVP Q6H vial 01/05/17 [Rx] Metoprolol [Lopressor] 5 mg IVP Q6HR vial 01/05/17 [Rx] Naloxone [Narcan] 0.4 mg IVP Q2MIN PRN inj 01/05/17 [Rx] Ondansetron [Zofran] 4 mg IVP Q4H PRN vial 01/05/17 [Rx] OxyCODONE Oral Soln [OxyCODONE ORAL SOLN] 30 mg PO Q4H PRN ud.liq 01/05/17 [Rx] FentaNYL PATCH [Duragesic] 1 each TD Q72H #3 patch.td72 01/13/17 [Rx] FentaNYL PATCH [Duragesic] 1 each TD Q72H #3 patch.td72 01/13/17 [Rx] HYDROmorphone [Dilaudid] 4 mg PO Q1H #40 tablet 01/13/17 [Rx] LORazepam Oral Conc [Ativan Oral Conc] 1 mg PO Q6HR #30 mls 01/13/17 [Rx] LORazepam [Ativan] 1 mg PO Q2H PRN #40 tablet 01/13/17 [Rx] LORazepam [Ativan] 1 mg PO QID #20 tablet 01/13/17 [Rx] Mirtazapine [Remeron] 15 mg PO HS #5 tab.rapdis 01/13/17 [Rx] Sennosides/Docusate Sodium [Senna Plus] 2 each PO BID #20 tablet 01/13/17 [Rx] 3 Allergy/AdvReac Type Severity Reaction Status Date / Time morphine Allergy Rash Verified 01/02/17 06:25 ROS unobtainable: due to mental status (Patient is weak and lethargic) - Constitutional Constitutional ROS PAL: decreased appetite, fatigue, lethargy - EENT Eyes: requires corrective lenses - Cardiovascular Cardiovascular ROS: leg edema, pedal edema (3-4 +), rapid heart rate - Respiratory Respiratory: cough - Gastrointestinal Gastrointestinal: abdominal pain, bloating, constipation, nausea, vomiting - Genitourinary Genitourinary ROS male: testicular pain (scrotal edema) - Musculoskeletal Musculoskeletal ROS IM: muscle weakness - Integumentary ROS Integumentary: other (pleurx catheter to left abdominal wall.) - Neurological Neurological ROS: weakness Palliative Care-Exam - Constitutional General appearance: Present: cooperative - Head Head Exam: Present: atraumatic, normal inspection - Eye Pupils: Present: PERRL - ENT ENT exam: Present: mucous membranes moist - Expanded ENT Exam Mouth Exam: Present: moist - Respiratory Respiratory exam: Present: decreased breath sounds - Expanded Respiratory Exam Location: decreased breath sounds: Left, Right, Lower - Cardiovascular Cardiovascular exam: Present: RRR, +S1, +S2, tachycardia - Expanded Cardiovascular Exam Peripheral pulses: 1+: Femoral (L) PM, Femoral (R) PM, Posterior Tibialis (L), Posterior Tibialis (R), Dorsalis Pedis (L) PM, Dorsalis Pedis (R) PM, 2+: Carotid (L) PM, Carotid (R) PM, Radial (L), Radial (R) - GI/Abdominal Exam GI/Abdominal exam: Present: diminished bowel sounds, distended, firm, tenderness - Expanded GI/Abdominal Exam GI/Abdominal exam: Present: ascites - Rectal Rectal Exam: Present: deferred Additional comments: patient refused at present. Reports feeling sick to his stomach - exam: Present: scrotal swelling Catheter Type: Urethral (Granados) Additional comments: moderate amount clear yellow urine - Extremities Exam Extremities exam: Present: pedal edema (3-4 + pedal edema) - Expanded Upper Extremities Exam Shoulder exam: Present: tenderness Upper Arm exam: Present: tenderness - Neurological Exam Neurological exam: Present: altered (patient lethargic) - Expanded Neurological Exam Coma Scale Eye Opening: To Voice Coma Scale Motor Response: Localizes to Pain Coma Scale Verbal Response: Inappropriate Coma Scale Total: 11 - Psychiatric Psychiatric exam: Present: flat affect - Skin Skin exam: Present: mottled (lower legs cool and slightlt blue), pallor Palliative Quality Palliative Quality: Screen for Code Status: Yes, Screen for Goals of Care: Yes, Screen for Pain: Yes, If Pain Regimen Started, Initiate Bowel Regimen: Yes, Screen for Nausea/Vomitting: Yes Code Status: 01/24/17 19:46 Resuscitation Status: Active [RES] Routine Comment: Resuscitation Status: DNR-Comfort Care
[2017-01-24] MEDS: 0.9 % Sodium Chloride 1,000 ML IVC SCH (23:56)
[2017-01-24] MEDS: *HR* LORazepam 2 MG/ML VIAL IVP SCH (23:57)
[2017-01-25] MEDS: Metoclopramide 10 MG/2 ML VIAL IVP SCH ×4 (03:21→20:42)
[2017-01-25] MEDS: *HR* HYDROmorphone 2 MG/ML SYRINGE IVP PRN ×2 (05:47→10:46)
[2017-01-25] MEDS: Ondansetron 4 MG/2 ML VIAL IVP SCH ×3 (05:47→16:55)
[2017-01-25] MEDS: *HR* LORazepam 2 MG/ML VIAL IVP SCH ×3 (05:48→16:56)
[2017-01-25] MEDS: Dexamethasone 4 MG/ML VIAL IVP SCH ×2 (07:51→20:42)
--- NOTE | 2017-01-25 11:07 | Palliative - Consult Note ---
<Chris Talavera - Last Filed: 01/25/17 11:13> Date of Encounter: 01/25/17 Time of Encounter: 11:00 - Assessment and Plan (1) Intractable nausea and vomiting Current Visit: No Status: Acute Assessment and plan: Patient initially presented with severe vomiting. According to his , patient's vomiting has improved since yesterday. Plan: -Reglan 10 mg every 6 hours. -Zofran 4 mg every 4 hours. -Ecotrin 4 mg twice a day. -Nothing by mouth. -Head of bed up. Qualifiers: Vomiting type: unspecified Qualified Code(s): R11.2 - Nausea with vomiting , unspecified (2) Ascites Current Visit: No Status: Acute Assessment and plan: Cancer induced malignant ascites is present. -Patient's states that his abdomen has greatly distended over the last 2 days. -Abdomen is currently distended and firm. -On arrival, drained approximately 6 L. -Continues to drain when necessary. Qualifiers: Ascites type: malignant Qualified Code(s): R18.0 - Malignant ascites (3) Pancreatic cancer metastasized to liver Current Visit: No Status: Suspected Assessment and plan: Enrolled in hospice. -Patient is not currently scheduled for any chemotherapy or radiation. (4) Goals of care, counseling/discussion Current Visit: No Status: Acute Assessment and plan: Family desires only comfort care. -Patient's CODE STATUS is DNR CCA. -Continue pain management and control of nausea and vomiting. (5) Cancer associated pain Current Visit: No Status: Acute Palliative-CN HPI - Data of Consult Consult date: 01/25/17 Requesting Physician: Santino Goncalves MD Primary Care Provider: Chandler Clark - Consult Narrative Palliative Care/Comfort Measures: Palliative care History of present illness: Mr. 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 Presented with 3 day history of intractable nausea and vomiting. Patient was vomiting brown colored liquid. He was unable to hold liquids or food down. He was unable to take any medications. Upon consultation, patient is frail, weak and lethargic. He is able to respond to simple commands. He is able to verbalize with a whisper. Patient's is at bedside. She reports that his condition has improved since yesterday. Yesterday, patient had several episodes of vomiting. However , he has not had any today. Patient does not appear to be in any distress. Although patient can verbalize some words, he is unable to provide a thorough history. When he talks, he quickly falls asleep. His states that he initially had some lower abdominal pain upon presentation to the hospital. According to her, patient has not complained of this pain since. Patient's family desires comfort care only. They agreed to the management of nausea and vomiting. Patient's current CODE STATUS is DNR CCA. CC: Santino Goncalves MD Past Med Surg Social Fam HX - Past Medical History Medical history: cancer, hypertension, other Psychiatric history: no psych history - Past Surgical History Surgical History: no surgical history - Social History Smoking Status: Never smoker Smokeless Tobacco Status: No Alcohol use: none Drug use: none - Family History Father Living Status: Hx Family Cardiac Disorders: Yes (OR at age 52) Mother Living Status: Hx Family Cardiac Disorders: No Hx Family Cancer: No Brother Hx Family Cancer: Yes (Lung cancer) Sister Hx Family Cancer: Yes (Lung cancer) Medications and Allergies Acetaminophen [Tylenol 650mg SUPP] 650 mg RC Q4H PRN 01/25/17 [History] Bisacodyl [Dulcolax] 10 mg RC DAILY PRN 01/25/17 [History] Dexamethasone 4 mg PO DAILY 01/25/17 [History] FentaNYL PATCH [Duragesic] 50 mcg TD Q72H 01/25/17 [History] FentaNYL PATCH [Duragesic] 100 mcg TD Q72H 01/25/17 [History] HYDROmorphone [Dilaudid] 4 mg PO Q1H PRN 01/25/17 [History] Haloperidol Oral Conc [Haldol] 2 - 4 mg PO Q4H PRN 01/25/17 [History] Hydromorphone HCl [Dilaudid] 5 mg PO Q1H 01/25/17 [History] LORazepam [Ativan] 1 mg PO QID 01/25/17 [History] LORazepam [Lorazepam Intensol] 1 mg PO Q2H PRN 01/25/17 [History] Mirtazapine [Remeron] 15 mg PO HS 01/25/17 [History] Oxygen 2 - 4 l NS AD 01/25/17 [History] Promethazine Syrup [Phenergan Syrup] 25 mg PO Q6H PRN 01/25/17 [History] Sennosides/Docusate Sodium [Senna Plus] 2 tab PO BID 01/25/17 [History] 3 Allergy/AdvReac Type Severity Reaction Status Date / Time morphine Allergy Rash Verified 01/02/17 06:25 ROS unobtainable: due to mental status Palliative Care-Exam - Constitutional Vitals: Temp Pulse Resp BP Pulse Ox 97.7 F 106 20 125/85 97 01/25/17 07:03 01/25/17 07:03 01/25/17 07:03 01/25/17 07:03 01/25/17 07:58 General appearance: Present: cooperative, thin - Head Head Exam: Present: normal inspection - ENT ENT exam: Present: mucous membranes dry - Respiratory Respiratory exam: Present: CTAB - Cardiovascular Cardiovascular exam: Present: RRR Additional comments: Loud S2 - GI/Abdominal Exam GI/Abdominal exam: Present: distended, firm, hyperactive bowel sounds additional comments: Patient has ascites. According to patient's , approximately 6 L of fluid was drained for patient abdomen. This morning, approximately half a liter fluid was drained. - Expanded GI/Abdominal Exam GI/Abdominal exam: Present: ascites Consult Discharge Plan - Plan Referrals: Chandler Clark MD [Primary Care Provider] - Palliative Quality Palliative Quality: Screen for Code Status: Yes, Screen for Goals of Care: Yes, Screen for Pain: Yes, If Pain Regimen Started, Initiate Bowel Regimen: Yes, Screen for Nausea/Vomitting: Yes Code Status: 01/24/17 19:46 Resuscitation Status: Active [RES] Routine Comment: Resuscitation Status: DNR-Comfort Care <Santino Goncalves - Last Filed: 01/25/17 11:46> Date of Encounter: 01/25/17 Palliative-CN HPI - Data of Consult Requesting Physician: Santino Goncalves MD Primary Care Provider: Chandler Clark - Consult Narrative History of present illness: Mr. Jade is a 61 year old male CC: Santino Goncalves MD Palliative Care-Exam - Constitutional Vitals: Temp Pulse Resp BP Pulse Ox 97.7 F 106 20 125/85 97 01/25/17 07:03 01/25/17 07:03 01/25/17 07:03 01/25/17 07:03 01/25/17 07:58 - Attending Attestation I examined this patient and my medical decision-making was reviewed with the Resident Physician. I agree with the documented findings, disposition and treatment plan as described except to the extent set forth below. The patient is on Decadron 4 mg twice a day not Ecotrin, patient is DNR CC. Otherwise agree with the assessment and plan per the resident. Palliative Quality Code Status: 01/24/17 19:46 Resuscitation Status: Active [RES] Routine Comment: Resuscitation Status: DNR-Comfort Care
[2017-01-26] MEDS: Ondansetron 4 MG/2 ML VIAL IVP SCH ×2 (00:27→05:06)
[2017-01-26] MEDS: *HR* LORazepam 2 MG/ML VIAL IVP SCH ×6 (00:27→22:17)
[2017-01-26] MEDS: Metoclopramide 10 MG/2 ML VIAL IVP SCH ×4 (03:37→20:45)
--- NOTE | 2017-01-26 09:03 | Palliative Progress Note ---
<Chris Talavera - Last Filed: 01/26/17 09:08> Date of Encounter: 01/26/17 Time of Encounter: 09:00 - Assessment and plan (1) Intractable nausea and vomiting Current Visit: No Status: Acute Assessment and plan: Patient initially presented with severe vomiting. He reports today no episodes of vomiting this morning or yesterday. Plan: -Reglan 10 mg every 6 hours. -Zofran 4 mg every 4 hours. -Ecotrin 4 mg twice a day. -Nothing by mouth. -Head of bed up. Qualifiers: Vomiting type: unspecified Qualified Code(s): R11.2 - Nausea with vomiting , unspecified (2) Ascites Current Visit: No Status: Acute Assessment and plan: Cancer induced malignant ascites is present. -Abdomen is currently distended and firm. -Initial visit: drained approximately 6 L. -Continues to drain when necessary. Qualifiers: Ascites type: malignant Qualified Code(s): R18.0 - Malignant ascites (3) Pancreatic cancer metastasized to liver Current Visit: No Status: Suspected Assessment and plan: Enrolled in hospice. -Patient is not currently scheduled for any chemotherapy or radiation. (4) Goals of care, counseling/discussion Current Visit: No Status: Acute (5) Cancer associated pain Current Visit: No Status: Acute Assessment and plan: Family desires only comfort care. -Patient's CODE STATUS is DNR CCA. -Continue pain management and control of nausea and vomiting. - Time Spent With Patient Total time spent is greater than 50% in coordination of care (as documented) at patient's floor/unit and/or counseling patient: - Subjective Interval history: Patient was seen and examined at bedside this morning. He reports that he is feeling better. He has had no vomiting for the past 2 days. He denies abdominal pain or nausea. is not currently at bedside. - Constitutional General appearance: Present: thin - Respiratory Respiratory exam: Present: CTAB - Cardiovascular Cardiovascular exam: Present: RRR, +S1, +S2 - GI/Abdominal GI/Abdominal exam: Present: firm, hyperactive bowel sounds - Expanded Abdominal Exam GI/Abdominal exam: Present: ascites - Skin Skin exam: Present: dry Palliative Quality Palliative Quality: Screen for Code Status: Yes, Screen for Goals of Care: Yes, Screen for Pain: Yes, If Pain Regimen Started, Initiate Bowel Regimen: Yes, Screen for Nausea/Vomitting: Yes Code Status: 01/24/17 19:46 Resuscitation Status: Active [RES] Routine Comment: Resuscitation Status: DNR-Comfort Care Consult Discharge Plan - Plan Referrals: Chandler Clark MD [Primary Care Provider] - <Santino Goncalves - Last Filed: 01/26/17 10:37> Date of Encounter: 01/26/17 - Time Spent With Patient Total time spent is greater than 50% in coordination of care (as documented) at patient's floor/unit and/or counseling patient: - Attending Attestation I examined this patient and my medical decision-making was reviewed with the Resident Physician. I agree with the documented findings, disposition and treatment plan as described except to the extent set forth below. Issues CODE STATUS is comfort care not CCA, patient is on Decadron not Ecotrin. This morning I changed his Ativan to 1 mg 4 times a day scheduled, is Zofran when necessary and currently discussing with hospice about the possibility of putting in a powerglide for IV medication use at home. Palliative Quality Code Status: 01/24/17 19:46 Resuscitation Status: Active [RES] Routine Comment: Resuscitation Status: DNR-Comfort Care
[2017-01-26] MEDS: Dexamethasone 4 MG/ML VIAL IVP SCH ×2 (09:09→20:45)
[2017-01-26] MEDS: *HR* HYDROmorphone 2 MG/ML SYRINGE IVP PRN ×2 (10:59→13:11)
[2017-01-27] MEDS: *HR* HYDROmorphone 2 MG/ML SYRINGE IVP PRN ×5 (01:34→21:37)
[2017-01-27] MEDS: Metoclopramide 10 MG/2 ML VIAL IVP SCH ×4 (04:05→21:37)
[2017-01-27] MEDS ORDERED: *HR* FentaNYL PATCH 75 MCG PATCH TD SCH (08:43)
--- NOTE | 2017-01-27 08:47 | Palliative Progress Note ---
<Chris Talavera - Last Filed: 01/27/17 08:56> Date of Encounter: 01/27/17 Time of Encounter: 08:30 - Assessment and plan (1) Intractable nausea and vomiting Current Visit: No Status: Acute Assessment and plan: Patient initially presented to the hospital with severe vomiting. Patient's vomiting seems to be well controlled with current medication regimen. Plan: -Reglan 10 mg Q6. -Zofran 4 mg Q4. -Decadron 4mg BID. -NPO. -Head of bed up. Qualifiers: Vomiting type: unspecified Qualified Code(s): R11.2 - Nausea with vomiting , unspecified (2) Cancer associated pain Current Visit: No Status: Acute Assessment and plan: -Fentanyl patch increased to 175 mcg transdermal every 72 hours. -Dilaudid 1 mg Q1. (3) Ascites Current Visit: No Status: Acute Assessment and plan: Patient has ascites and significant abdominal distention. -Likely secondary to metastatic cancer. -Abdomen is currently distended and firm; appears more distended than yesterday. -Continue to drain when necessary. Qualifiers: Ascites type: malignant Qualified Code(s): R18.0 - Malignant ascites (4) Pancreatic cancer metastasized to liver Current Visit: No Status: Suspected Assessment and plan: Patient is enrolled in hospice. -Patient is not currently scheduled for any chemotherapy or radiation. (5) Goals of care, counseling/discussion Current Visit: No Status: Acute Assessment and plan: Patient's family only desires comfort care. -Patient's current CODE STATUS is DNR-comfort care. - Time Spent With Patient Total time spent is greater than 50% in coordination of care (as documented) at patient's floor/unit and/or counseling patient: - Subjective Interval history: Patient was seen and examined at bedside this morning. Patient is asleep. Received pain medication this morning; Dilaudid 2mg. Abdomen appears to be more distended from yesterday. Patient still has +2 pedal edema bilaterally. Family members not currently at bedside. - Constitutional General appearance: Present: thin - Head Head exam: Present: atraumatic, normal inspection, normocephalic - ENT ENT exam: Present: mucous membranes dry - Neck Neck exam: Absent: lymphadenopathy Additional comments: Pulsations visible in lower neck. - Respiratory Respiratory exam: Present: CTAB - Cardiovascular Cardiovascular exam: Present: RRR, +S1, +S2 - GI/Abdominal GI/Abdominal exam: Present: distended, firm, hyperactive bowel sounds. Absent: bruit - Extremities Exam Extremities exam: Present: pedal edema - Skin Skin exam: Present: dry, intact Palliative Quality Palliative Quality: Screen for Code Status: Yes, Screen for Goals of Care: Yes, Screen for Pain: Yes, If Pain Regimen Started, Initiate Bowel Regimen: Yes, Screen for Nausea/Vomitting: Yes Code Status: 01/24/17 19:46 Resuscitation Status: Active [RES] Routine Comment: Resuscitation Status: DNR-Comfort Care Consult Discharge Plan - Plan Referrals: Chandler Clark MD [Primary Care Provider] - <Santino Goncalves - Last Filed: 01/27/17 09:05> Date of Encounter: 01/27/17 - Time Spent With Patient Total time spent is greater than 50% in coordination of care (as documented) at patient's floor/unit and/or counseling patient: - Attending Attestation I examined this patient and my medical decision-making was reviewed with the Resident Physician. I agree with the documented findings, disposition and treatment plan as described except to the extent set forth below. Palliative Quality Code Status: 01/24/17 19:46 Resuscitation Status: Active [RES] Routine Comment: Resuscitation Status: DNR-Comfort Care
[2017-01-27] MEDS: Dexamethasone 4 MG/ML VIAL IVP SCH ×2 (08:57→21:37)
[2017-01-27] MEDS: *HR* LORazepam 2 MG/ML VIAL IVP SCH ×4 (09:31→21:38)
[2017-01-27] MEDS ORDERED: FENTANYL TD SCH (10:00)
[2017-01-27] MEDS: *HR* LORazepam 2 MG/ML VIAL IVP PRN (17:03)
[2017-01-28] MEDS: Metoclopramide 10 MG/2 ML VIAL IVP SCH ×5 (04:32→20:00)
[2017-01-28] MEDS: *HR* LORazepam 2 MG/ML VIAL IVP SCH ×4 (06:38→23:23)
[2017-01-28] MEDS: 0.9 % Sodium Chloride 1,000 ML IVC SCH (07:28)
[2017-01-28] MEDS: Dexamethasone 4 MG/ML VIAL IVP SCH ×3 (08:12→20:00)
--- NOTE | 2017-01-28 08:16 | Palliative Progress Note ---
<Chris Talavera - Last Filed: 01/28/17 08:27> Date of Encounter: 01/28/17 Time of Encounter: 08:00 - Assessment and plan (1) Intractable nausea and vomiting Current Visit: No Status: Acute Assessment and plan: Patient reported having nausea and vomiting late last night and early this morning. -He was initially on the following regimen: Reglan 10 mg Q6, Zofran 4 mg Q4, and Decadron 4mg BID. -Patient is now refusing all medications. He states that they all just make him sick. -Patient appears to be slightly upset, and says he just wants to go home. Qualifiers: Vomiting type: unspecified Qualified Code(s): R11.2 - Nausea with vomiting , unspecified (2) Cancer associated pain Current Visit: No Status: Acute Assessment and plan: Patient was initially on the following for pain control: Fentanyl patch 175 mcg TD q72 and Dilaudid 1 mg Q1. -According to his nurse, he ripped off his fentanyl patch today. -He is refusing all medications, as he says they all make him sick. -He currently complains of 6/10 pain in his abdomen. (3) Ascites Current Visit: No Status: Acute Assessment and plan: Patient has ascites and significant abdominal distention. -Likely secondary to metastatic cancer. -Abdomen is currently distended and firm. -Distension appears to be improving. Qualifiers: Ascites type: malignant Qualified Code(s): R18.0 - Malignant ascites (4) Pancreatic cancer metastasized to liver Current Visit: No Status: Suspected Assessment and plan: Patient is enrolled in hospice. -Patient is not currently scheduled for any chemotherapy or radiation. (5) Goals of care, counseling/discussion Current Visit: No Status: Acute Assessment and plan: Patient's family only desires comfort care. -Patient's current CODE STATUS is DNR-comfort care. - Time Spent With Patient Total time spent is greater than 50% in coordination of care (as documented) at patient's floor/unit and/or counseling patient: - Subjective Interval history: Patient was seen and examined at bedside this morning. Patient reports nausea and vomiting both yesterday and today. He is complaining of 6/10 pain in his abdomen. He states that none of his medication is helping him, and that he just wants to go home. He has refused all of his medication. According to his nurse, he took off his fentanyl patch. Patient still has +2 pedal edema bilaterally. Distension is somewhat improved. Family members are not currently at bedside. - Constitutional General appearance: Present: mild distress, thin - Head Head exam: Present: atraumatic, normal inspection, normocephalic - Neck Neck exam: Present: full ROM, normal inspection. Absent: tenderness - Expanded Neck Exam Neck exam: Absent: tenderness, thyroid mass - Respiratory Respiratory exam: Present: CTAB - Cardiovascular Cardiovascular exam: Present: RRR, +S1, +S2 - GI/Abdominal GI/Abdominal exam: Present: distended, firm, hyperactive bowel sounds, tenderness. Absent: bruit, diminished bowel sounds, guarding, hernia, mass, normal bowel sounds - Expanded Abdominal Exam GI/Abdominal exam: Present: ascites - Psychiatric Psychiatric exam: Present: normal mood - Skin Skin exam: Present: dry, intact. Absent: rash Palliative Quality Palliative Quality: Screen for Code Status: Yes, Screen for Goals of Care: Yes, Screen for Pain: Yes, If Pain Regimen Started, Initiate Bowel Regimen: Yes, Screen for Nausea/Vomitting: Yes Code Status: 01/24/17 19:46 Resuscitation Status: Active [RES] Routine Comment: Resuscitation Status: DNR-Comfort Care Consult Discharge Plan - Plan Referrals: Chandler Clark MD [Primary Care Provider] - Prescriptions: Metoclopramide [Reglan] 10 mg IV Q6HR #400 mg Dexamethasone [Decadron] 4 mg IV ONCE 10 Days #80 mg FentaNYL PATCH [Duragesic] 1 each TD Q72H #3 patch.td72 FentaNYL PATCH [Duragesic] 1 each TD Q72H #3 patch.td72 Hydromorphone HCl/Pf [Dilaudid 2 mg/ml Syringe] 2 mg IV Q2H PRN #36 syringe PRN Reason: cancer pain LORazepam [Ativan] 1 mg IV Q2H PRN #40 mg PRN Reason: anxiety n/v LORazepam [Ativan] 1 mg IV Q6H #40 mg Ondansetron [Zofran] 4 mg IV Q6H PRN #160 mg PRN Reason: n/v <Santino Goncalves - Last Filed: 01/28/17 09:44> Date of Encounter: 11/16/17 - Time Spent With Patient Total time spent is greater than 50% in coordination of care (as documented) at patient's floor/unit and/or counseling patient: - Attending Attestation I examined this patient and my medical decision-making was reviewed with the Resident Physician. I agree with the documented findings, disposition and treatment plan as described except to the extent set forth below. The patient is very upset this morning. Refusing medication for pain but then complaining of pain. The patient is clearly not able to make decisions for himself. I did manage to talk the patient down, was able to get him his medication now he is sleeping comfortably. The patient may require certain degree of sedation to be manage his symptoms adequately. Patient generally tries to drink too much and then has trouble with gagging. And this causes him to become more agitated. Discuss with family may schedule Haldol. Palliative Quality Code Status: 01/24/17 19:46 Resuscitation Status: Active [RES] Routine Comment: Resuscitation Status: DNR-Comfort Care
[2017-01-28] MEDS: *HR* HYDROmorphone 2 MG/ML SYRINGE IVP PRN ×4 (08:50→20:00)
[2017-01-28] MEDS: Haloperidol Lactate 5 MG/ML VIAL IVP PRN ×2 (09:52→17:40)
[2017-01-28] MEDS: *HR* LORazepam 2 MG/ML VIAL IVP PRN ×2 (09:52→20:12)
[2017-01-28] MEDS ORDERED: *HR* LORazepam 2 MG/ML VIAL IVP PRN (10:21)
[2017-01-28] MEDS ORDERED: *HR* FentaNYL PATCH 75 MCG PATCH TD SCH (10:30)
[2017-01-28] MEDS ORDERED: *HR* HYDROmorphone (PF) 1 MG/ML SYRINGE IVP ONE (10:37)
[2017-01-28] MEDS: Haloperidol Lactate 5 MG/ML VIAL IVP SCH ×4 (10:53→23:23)
[2017-01-28] MEDS: FENTANYL TD SCH (11:10)
--- NOTE | 2017-01-28 15:22 | Event Note ---
Date of Encounter: 01/28/17 Time of Encounter: 09:00 I was notified that the patient had fallen, the patient was clearly not in a position this morning to make decisions for himself. He was demanding to leave him to speak to the hospital president have an ambulance take him "down the hill " is not able to give me a place that he wished to be transported to. He was also refusing all medications. Shortly thereafter the patient fell. I came in and examine the patient there is a abrasion to the right side of his head, however there was no other visible injuries. After discussion with patient's family typically his and daughter, being his medical power of health care attorney decision has been made to her on the side of heavier sedation for the patient as easily the problems that he was having at home. Her arranging for IV medications to be a little be given at home, however this is still an ongoing process with getting all of this stuff in order. The time being the patient will remain here until he is stabilized on his home medications and then will be transported home with hospice. At this time he will remain Gen. inpatient for the above reasons.
[2017-01-28 15:53] LABS: Bilirubin,Urine Large (Negative); Blood,Urine Large (Negative); Clarity,Urine Cloudy (Clear); Color,Urine Orange (Yellow); Glucose,Urine (UA) Normal (Normal); Ketones,Urine Trace mg/dL (Negative); Leukocyte Esterase,Urine Small (Negative); Nitrite,Urine Negative (Negative); Protein,Urine 30 mg/dL (Neg-Trace); Specific Gravity,Urine 1.027 (1.010-1.025)
[2017-01-28 15:56] LABS: Bacteria,Urine Moderate per hpf (None-Few); Hyaline Casts,Urine Few per lpf (None-Few); Squamous Epithelial Cell,Urine Many per lpf (None-Few)
[2017-01-28 16:09] LABS: RBC,Urine 15-30 per hpf (0-3)
[2017-01-28] MEDS ORDERED: Haloperidol Lactate 5 MG/ML VIAL IVP PRN (19:43)
[2017-01-29] MEDS: Haloperidol Lactate 5 MG/ML VIAL IVP SCH ×5 (03:49→20:02)
[2017-01-29] MEDS: Metoclopramide 10 MG/2 ML VIAL IVP SCH ×4 (03:50→20:01)
[2017-01-29] MEDS: *HR* LORazepam 2 MG/ML VIAL IVP SCH ×3 (05:36→17:57)
[2017-01-29] MEDS: Dexamethasone 4 MG/ML VIAL IVP SCH ×2 (08:23→20:01)
[2017-01-29] MEDS: *HR* HYDROmorphone 2 MG/ML SYRINGE IVP PRN (08:24)
[2017-01-29] MEDS: Ondansetron 4 MG/2 ML VIAL IVP PRN (08:34)
[2017-01-29] MEDS: *HR* LORazepam 2 MG/ML VIAL IVP PRN (08:34)
--- NOTE | 2017-01-29 08:47 | Palliative Progress Note ---
<Chris Talavera - Last Filed: 01/29/17 09:20> Date of Encounter: 01/29/17 Time of Encounter: 08:30 - Assessment and plan (1) Intractable nausea and vomiting Current Visit: No Status: Acute Assessment and plan: Patient vomited early this morning; given Zofran and Ativan for this episode. -Reglan 10 mg Q6, Zofran 4 mg Q4, and Decadron 4mg BID. -Abdomen appears more distended this morning; drain ascites fluid Qualifiers: Vomiting type: unspecified Qualified Code(s): R11.2 - Nausea with vomiting , unspecified (2) Cancer associated pain Current Visit: No Status: Acute Assessment and plan: Dilaudid 1 mg Q1 and 750 mcg fentanyl patch TD q72. (3) Ascites Current Visit: No Status: Acute Assessment and plan: Patient has ascites and significant abdominal distention. -Likely secondary to metastatic cancer. -Abdomen is currently distended and firm. -Drain when necessary. Qualifiers: Ascites type: malignant Qualified Code(s): R18.0 - Malignant ascites (4) Pancreatic cancer metastasized to liver Current Visit: No Status: Suspected Assessment and plan: Patient is enrolled in hospice. -Patient is not currently scheduled for any chemotherapy or radiation. (5) Goals of care, counseling/discussion Current Visit: No Status: Acute Assessment and plan: Patient's family only desires comfort care. -Patient's current CODE STATUS is DNR-comfort care. - Time Spent With Patient Total time spent is greater than 50% in coordination of care (as documented) at patient's floor/unit and/or counseling patient: - Subjective Interval history: Patient was seen and examined at bedside this morning. He had several episodes of vomiting this morning. Abdomen is currently more distended. Still has +2 pitting edema bilaterally. He is no longer refusing his medication. - Constitutional Vitals: Abnormal lab results Urine Color [place] (Yellow) A 01/28/17 15:45 Urine Clarity Cloudy (Clear) A 01/28/17 15:45 Ur Specific [place] 1.027 (1.010-1.025) H 01/28/17 15:45 Urine Protein 30 mg/dL (Neg-Trace) H 01/28/17 15:45 Urine Ketones Trace mg/dL (Negative) H 01/28/17 15:45 Urine Blood Large (Negative) H 01/28/17 15:45 Urine Bilirubin Large (Negative) H 01/28/17 15:45 Urine Urobilinogen 4.0 mg/dL (Normal) H 01/28/17 15:45 Ur Leukocyte Esterase Small (Negative) H 01/28/17 15:45 Urine Microscopic RBC 15-30 per hpf (0-3) H 01/28/17 15:45 Urine Microscopic WBC 5-15 per hpf (0-3) H 01/28/17 15:45 Ur Squamous Epith Cells Many per lpf (None-Few) H 01/28/17 15:45 Urine Bacteria Moderate per hpf (None-Few) H 01/28/17 15:45 Ur Culture Indicated? YES (NO) A 01/28/17 15:45 General appearance: Present: thin - Head Head exam: Present: atraumatic, normal inspection, normocephalic - Neck Neck exam: Present: full ROM, normal inspection. Absent: tenderness - Respiratory Respiratory exam: Present: CTAB - Cardiovascular Cardiovascular exam: Present: RRR, +S1, +S2 - GI/Abdominal GI/Abdominal exam: Present: distended, firm, tenderness - Expanded Abdominal Exam GI/Abdominal exam: Present: ascites - Extremities Exam Extremities exam: Present: pedal edema - Skin Skin exam: Present: dry, intact Palliative Quality Palliative Quality: Screen for Code Status: Yes, Screen for Goals of Care: Yes, Screen for Pain: Yes, If Pain Regimen Started, Initiate Bowel Regimen: Yes, Screen for Nausea/Vomitting: Yes Code Status: 01/24/17 19:46 Resuscitation Status: Active [RES] Routine Comment: Resuscitation Status: DNR-Comfort Care - Labs Labs: Laboratory Results - last 24 hr 01/28/17 15:45 Urine Color [place] A Urine Clarity Cloudy A Urine pH 6.0 Ur Specific [place] 1.027 H Urine Protein 30 H Urine Glucose (UA) Normal Urine Ketones Trace H Urine Blood Large H Urine Nitrite Negative Urine Bilirubin Large H Urine Urobilinogen 4.0 H Ur Leukocyte Esterase Small H Urine Microscopic RBC 15-30 H Urine Microscopic WBC 5-15 H Ur Squamous Epith Cells Many H Urine Bacteria Moderate H Hyaline Casts Few Ur Culture Indicated? YES A Consult Discharge Plan - Plan Referrals: Chandler Clark MD [Primary Care Provider] - (PALLI PATIENT ) Prescriptions: Metoclopramide [Reglan] 10 mg IV Q6HR #400 mg Dexamethasone [Decadron] 4 mg IV ONCE 10 Days #80 mg FentaNYL PATCH [Duragesic] 1 each TD Q72H #3 patch.td72 FentaNYL PATCH [Duragesic] 1 each TD Q72H #3 patch.td72 Hydromorphone HCl/Pf [Dilaudid 2 mg/ml Syringe] 2 mg IV Q2H PRN #36 syringe PRN Reason: cancer pain LORazepam [Ativan] 1 mg IV Q2H PRN #40 mg PRN Reason: anxiety n/v LORazepam [Ativan] 1 mg IV Q6H #40 mg Ondansetron [Zofran] 4 mg IV Q6H PRN #160 mg PRN Reason: n/v <Santino Goncalves - Last Filed: 01/29/17 11:09> Date of Encounter: 01/29/17 - Time Spent With Patient Total time spent is greater than 50% in coordination of care (as documented) at patient's floor/unit and/or counseling patient: - Constitutional Vitals: Abnormal lab results Urine Color [place] (Yellow) A 01/28/17 15:45 Urine Clarity Cloudy (Clear) A 01/28/17 15:45 Ur Specific [place] 1.027 (1.010-1.025) H 01/28/17 15:45 Urine Protein 30 mg/dL (Neg-Trace) H 01/28/17 15:45 Urine Ketones Trace mg/dL (Negative) H 01/28/17 15:45 Urine Blood Large (Negative) H 01/28/17 15:45 Urine Bilirubin Large (Negative) H 01/28/17 15:45 Urine Urobilinogen 4.0 mg/dL (Normal) H 01/28/17 15:45 Ur Leukocyte Esterase Small (Negative) H 01/28/17 15:45 Urine Microscopic RBC 15-30 per hpf (0-3) H 01/28/17 15:45 Urine Microscopic WBC 5-15 per hpf (0-3) H 01/28/17 15:45 Ur Squamous Epith Cells Many per lpf (None-Few) H 01/28/17 15:45 Urine Bacteria Moderate per hpf (None-Few) H 01/28/17 15:45 Ur Culture Indicated? YES (NO) A 01/28/17 15:45 - Attending Attestation I examined this patient and my medical decision-making was reviewed with the Resident Physician. I agree with the documented findings, disposition and treatment plan as described except to the extent set forth below. Patient threw up after the resident saw him this morning. To be given additional medications patient was then drained of approximately 3-400 mL of fluid from his Pleurx catheter and was notably less distended. Palliative Quality Code Status: 01/24/17 19:46 Resuscitation Status: Active [RES] Routine Comment: Resuscitation Status: DNR-Comfort Care - Labs Labs: Laboratory Results - last 24 hr 01/28/17 15:45 Urine Color [place] A Urine Clarity Cloudy A Urine pH 6.0 Ur Specific [place] 1.027 H Urine Protein 30 H Urine Glucose (UA) Normal Urine Ketones Trace H Urine Blood Large H Urine Nitrite Negative Urine Bilirubin Large H Urine Urobilinogen 4.0 H Ur Leukocyte Esterase Small H Urine Microscopic RBC 15-30 H Urine Microscopic WBC 5-15 H Ur Squamous Epith Cells Many H Urine Bacteria Moderate H Hyaline Casts Few Ur Culture Indicated? YES A
[2017-01-30] MEDS: Haloperidol Lactate 5 MG/ML VIAL IVP SCH ×7 (00:09→23:29)
[2017-01-30] MEDS: *HR* LORazepam 2 MG/ML VIAL IVP SCH ×5 (00:10→23:19)
[2017-01-30] MEDS: Metoclopramide 10 MG/2 ML VIAL IVP SCH ×4 (03:03→20:04)
--- NOTE | 2017-01-30 09:46 | Palliative Progress Note ---
Date of Encounter: 01/30/17 Time of Encounter: 09:40 - Assessment and plan (1) Abdominal pain Current Visit: No Status: Acute Assessment and plan: Continues treatment with Fentanyl patch, IV Hydromorphone as needed. Has only required one dose of breakthrough medication the last 24 hours Qualifiers: Abdominal location: generalized Qualified Code(s): R10.84 - Generalized abdominal pain (2) Nausea & vomiting Current Visit: No Status: Resolved Assessment and plan: Appears controlled at this time. continues on scheduled Lorazepam/Haloperido/ Dexamethasone/Reglan. Has utilized one dose of PRN Ondansetron the last 24 hours. Qualifiers: Vomiting type: unspecified Vomiting Intractability: non-intractable Qualified Code(s): R11.2 - Nausea with vomiting, unspecified (3) Pancreatic cancer metastasized to liver Current Visit: No Status: Suspected - Time Spent With Patient Total time spent is greater than 50% in coordination of care (as documented) at patient's floor/unit and/or counseling patient: - Subjective Interval history: Patient asleep on my arrival. Nurse stated no events overnight. He opens eyes with assessment but no verbal response. Appears comfortable. No family at bedside. - Constitutional Vitals: Abnormal lab results Urine Color [place] (Yellow) A 01/28/17 15:45 Urine Clarity Cloudy (Clear) A 01/28/17 15:45 Ur Specific [place] 1.027 (1.010-1.025) H 01/28/17 15:45 Urine Protein 30 mg/dL (Neg-Trace) H 01/28/17 15:45 Urine Ketones Trace mg/dL (Negative) H 01/28/17 15:45 Urine Blood Large (Negative) H 01/28/17 15:45 Urine Bilirubin Large (Negative) H 01/28/17 15:45 Urine Urobilinogen 4.0 mg/dL (Normal) H 01/28/17 15:45 Ur Leukocyte Esterase Small (Negative) H 01/28/17 15:45 Urine Microscopic RBC 15-30 per hpf (0-3) H 01/28/17 15:45 Urine Microscopic WBC 5-15 per hpf (0-3) H 01/28/17 15:45 Ur Squamous Epith Cells Many per lpf (None-Few) H 01/28/17 15:45 Urine Bacteria Moderate per hpf (None-Few) H 01/28/17 15:45 Ur Culture Indicated? YES (NO) A 01/28/17 15:45 General appearance: Present: no acute distress - Respiratory Respiratory exam: Present: decreased breath sounds, CTAB Additional comments: Resp shallow and reg - Cardiovascular Cardiovascular exam: Present: +S1, +S2, tachycardia - GI/Abdominal GI/Abdominal exam: Present: distended, firm Additional comments: Pleurx cath in place to LLQ - Additional comments: [place] with scant amount dk debra urine - Extremities Exam Additional comments: 4+ edema bilaterally to lower extremities. scrotal edema noted - Neurological Exam Additional comments: Opens eyes with stimulation. No verbal response, not following simple commands this am - Skin Skin exam: Present: dry, warm Palliative Quality Palliative Quality: Screen for Code Status: Yes, Screen for Goals of Care: Yes, Screen for Pain: Yes, If Pain Regimen Started, Initiate Bowel Regimen: Yes, Screen for Nausea/Vomitting: Yes Code Status: 01/24/17 19:46 Resuscitation Status: Active [RES] Routine Comment: Resuscitation Status: DNR-Comfort Care Consult Discharge Plan - Plan Referrals: Chandler Clark MD [Primary Care Provider] - (PALLI PATIENT ) Prescriptions: Metoclopramide [Reglan] 10 mg IV Q6HR #400 mg Dexamethasone [Decadron] 4 mg IV ONCE 10 Days #80 mg FentaNYL PATCH [Duragesic] 1 each TD Q72H #3 patch.td72 FentaNYL PATCH [Duragesic] 1 each TD Q72H #3 patch.td72 Hydromorphone HCl/Pf [Dilaudid 2 mg/ml Syringe] 2 mg IV Q2H PRN #36 syringe PRN Reason: cancer pain LORazepam [Ativan] 1 mg IV Q2H PRN #40 mg PRN Reason: anxiety n/v LORazepam [Ativan] 1 mg IV Q6H #40 mg Ondansetron [Zofran] 4 mg IV Q6H PRN #160 mg PRN Reason: n/v
[2017-01-30] MEDS: Dexamethasone 4 MG/ML VIAL IVP SCH ×2 (09:52→20:07)
[2017-01-30] MEDS: Ondansetron 4 MG/2 ML VIAL IVP PRN (12:08)
[2017-01-30] MEDS: *HR* LORazepam 2 MG/ML VIAL IVP PRN (16:40)
[2017-01-30] MEDS ORDERED: *HR* LORazepam Oral Conc 2 MG/ML SL ONE (19:08)
[2017-01-30] MEDS ORDERED: OxyCODONE CONC 5 MG/0.25 ML ORAL.SYG SL PRN (19:10)
[2017-01-30] MEDS ORDERED: Haloperidol Oral Conc 10 MG/5 ML UDC PO ONE (19:16)
[2017-01-30] MEDS: *HR* HYDROmorphone 2 MG/ML SYRINGE IVP PRN (19:18)
[2017-01-31] MEDS: Metoclopramide 10 MG/2 ML VIAL IVP SCH ×4 (03:57→20:42)
[2017-01-31] MEDS: Haloperidol Lactate 5 MG/ML VIAL IVP SCH ×5 (03:58→20:42)
[2017-01-31] MEDS: *HR* LORazepam 2 MG/ML VIAL IVP SCH ×3 (05:38→17:34)
[2017-01-31] MEDS: *HR* HYDROmorphone 2 MG/ML SYRINGE IVP PRN ×3 (07:07→17:44)
[2017-01-31] MEDS: *HR* LORazepam 2 MG/ML VIAL IVP PRN (07:07)
--- NOTE | 2017-01-31 09:42 | Palliative Progress Note ---
Date of Encounter: 01/31/17 Time of Encounter: 09:35 - Assessment and plan (1) Abdominal pain Current Visit: No Status: Acute Assessment and plan: Continue current regimen of Fentanyl patch and Hydromorphone PRN. Utilized breakthrough med x 3 last 24 hours Qualifiers: Abdominal location: generalized Qualified Code(s): R10.84 - Generalized abdominal pain (2) Nausea & vomiting Current Visit: No Status: Resolved Assessment and plan: Continue current regimen of Reglan/Ativan/Haldol with Zofran PRN. Qualifiers: Vomiting type: unspecified Vomiting Intractability: non-intractable Qualified Code(s): R11.2 - Nausea with vomiting, unspecified (3) Pancreatic cancer metastasized to liver Current Visit: No Status: Suspected - Time Spent With Patient Total time spent is greater than 50% in coordination of care (as documented) at patient's floor/unit and/or counseling patient: - Subjective Interval history: Power glide IV was bad last night - staff worked and did get IV access in - but in abdomen. ICU staff supposed to come by today and place powerglide if possible. During time IV was out, pt did become more awake and slightly agitated, but did settle back down once medication was resumed. Have SL medications available if we lose access until PICC team can be here tomorrow. He is currently sleeping, did not awaken to stimuli. Only did brief assessment as to not disturb him too much this am. No family is present, but staff reports they were here most of evening last night. - Constitutional Vitals: Abnormal lab results Urine Color [place] (Yellow) A 01/28/17 15:45 Urine Clarity Cloudy (Clear) A 01/28/17 15:45 Ur Specific [place] 1.027 (1.010-1.025) H 01/28/17 15:45 Urine Protein 30 mg/dL (Neg-Trace) H 01/28/17 15:45 Urine Ketones Trace mg/dL (Negative) H 01/28/17 15:45 Urine Blood Large (Negative) H 01/28/17 15:45 Urine Bilirubin Large (Negative) H 01/28/17 15:45 Urine Urobilinogen 4.0 mg/dL (Normal) H 01/28/17 15:45 Ur Leukocyte Esterase Small (Negative) H 11/16/17 15:45 Urine Microscopic RBC 15-30 per hpf (0-3) H 01/28/17 15:45 Urine Microscopic WBC 5-15 per hpf (0-3) H 01/28/17 15:45 Ur Squamous Epith Cells Many per lpf (None-Few) H 01/28/17 15:45 Urine Bacteria Moderate per hpf (None-Few) H 01/28/17 15:45 Ur Culture Indicated? YES (NO) A 01/28/17 15:45 General appearance: Present: no acute distress - Respiratory Respiratory exam: Present: decreased breath sounds, CTAB - Cardiovascular Cardiovascular exam: Present: +S1, +S2 - GI/Abdominal GI/Abdominal exam: Present: distended, firm, normal bowel sounds Additional comments: Pleurx cath to LLQ. IV angiocath in RLQ - Extremities Exam Additional comments: 3-4+ edema to bilateral lower extremities - Neurological Exam Additional comments: Sleeping - did not awaken with my assessment. - Skin Skin exam: Present: dry, warm Additional comments: jaundiced Palliative Quality Palliative Quality: Screen for Code Status: Yes, Screen for Goals of Care: Yes, Screen for Pain: Yes, If Pain Regimen Started, Initiate Bowel Regimen: Yes, Screen for Nausea/Vomitting: Yes Code Status: 01/24/17 19:46 Resuscitation Status: Active [RES] Routine Comment: Resuscitation Status: DNR-Comfort Care Consult Discharge Plan - Plan Referrals: Chandler Clark MD [Primary Care Provider] - (PALLI PATIENT ) Prescriptions: Metoclopramide [Reglan] 10 mg IV Q6HR #400 mg Dexamethasone [Decadron] 4 mg IV ONCE 10 Days #80 mg FentaNYL PATCH [Duragesic] 1 each TD Q72H #3 patch.td72 FentaNYL PATCH [Duragesic] 1 each TD Q72H #3 patch.td72 Hydromorphone HCl/Pf [Dilaudid 2 mg/ml Syringe] 2 mg IV Q2H PRN #36 syringe PRN Reason: cancer pain LORazepam [Ativan] 1 mg IV Q2H PRN #40 mg PRN Reason: anxiety n/v LORazepam [Ativan] 1 mg IV Q6H #40 mg Ondansetron [Zofran] 4 mg IV Q6H PRN #160 mg PRN Reason: n/v
[2017-01-31] MEDS: FENTANYL TD SCH (10:17)
[2017-01-31] MEDS: Dexamethasone 4 MG/ML VIAL IVP SCH ×2 (10:19→20:42)
[2017-02-01] MEDS: Haloperidol Lactate 5 MG/ML VIAL IVP SCH ×7 (00:22→23:54)
[2017-02-01] MEDS: *HR* LORazepam 2 MG/ML VIAL IVP SCH ×5 (00:22→23:55)
[2017-02-01] MEDS: Metoclopramide 10 MG/2 ML VIAL IVP SCH ×4 (02:39→21:35)
[2017-02-01] MEDS: Dexamethasone 4 MG/ML VIAL IVP SCH ×2 (09:14→21:35)
[2017-02-01] MEDS: *HR* HYDROmorphone 2 MG/ML SYRINGE IVP PRN ×3 (09:25→21:35)
--- NOTE | 2017-02-01 09:32 | Palliative Progress Note ---
Date of Encounter: 02/01/17 Time of Encounter: 07:05 - Assessment and plan (1) Abdominal pain Current Visit: No Status: Acute Assessment and plan: Continue current meds. Will consider going up on the fentanyl patches so that he remains comfortable. The patient is requiring very few when necessary as at this point in time will not increase the fentanyl patch today. Qualifiers: Abdominal location: generalized Qualified Code(s): R10.84 - Generalized abdominal pain (2) Ascites Current Visit: No Status: Acute Qualifiers: Ascites type: malignant Qualified Code(s): R18.0 - Malignant ascites (3) Pancreatic cancer metastasized to liver Current Visit: No Status: Suspected (4) Goals of care, counseling/discussion Current Visit: No Status: Acute Assessment and plan: The patient is currently on general inpatient hospice care due to the fact that he gets exceedingly agitated when he wakes up very to both pain and nausea. Currently he is not adequately controlled well enough to be able to be at home even though the plan is for IV medications at home. This day by day my goal is to get him home with his IV medications. (5) Anxiety Current Visit: No Status: Acute Assessment and plan: Continue Ativan as currently prescribed. - Time Spent With Patient Total time spent is greater than 50% in coordination of care (as documented) at patient's floor/unit and/or counseling patient: - Subjective Interval history: The patient is resting comfortably at this time. The powerglide has now been replaced. As for continued current therapy. - Constitutional Vitals: Abnormal lab results Urine Color [place] (Yellow) A 01/28/17 15:45 Urine Clarity Cloudy (Clear) A 01/28/17 15:45 Ur Specific [place] 1.027 (1.010-1.025) H 01/28/17 15:45 Urine Protein 30 mg/dL (Neg-Trace) H 01/28/17 15:45 Urine Ketones Trace mg/dL (Negative) H 01/28/17 15:45 Urine Blood Large (Negative) H 01/28/17 15:45 Urine Bilirubin Large (Negative) H 01/28/17 15:45 Urine Urobilinogen 4.0 mg/dL (Normal) H 01/28/17 15:45 Ur Leukocyte Esterase Small (Negative) H 01/28/17 15:45 Urine Microscopic RBC 15-30 per hpf (0-3) H 01/28/17 15:45 Urine Microscopic WBC 5-15 per hpf (0-3) H 01/28/17 15:45 Ur Squamous Epith Cells Many per lpf (None-Few) H 01/28/17 15:45 Urine Bacteria Moderate per hpf (None-Few) H 01/28/17 15:45 Ur Culture Indicated? YES (NO) A 01/28/17 15:45 General appearance: Present: no acute distress - Head Head exam: Present: atraumatic, normal inspection - Eye Eye exam: Present: normal appearance - ENT ENT exam: Present: mucous membranes moist - Respiratory Respiratory exam: Present: decreased breath sounds - Cardiovascular Cardiovascular exam: Present: tachycardia - GI/Abdominal GI/Abdominal exam: Present: distended, firm, tenderness - Extremities Exam Extremities exam: Present: pedal edema. Absent: tenderness - Neurological Exam Neurological exam: Present: altered - Psychiatric Psychiatric exam: Absent: agitated, anxious (But does get that way when he wakes up without meds.) - Skin Skin exam: Present: dry, warm Palliative Quality Palliative Quality: Screen for Code Status: Yes, Screen for Goals of Care: Yes, Screen for Pain: Yes, If Pain Regimen Started, Initiate Bowel Regimen: Yes, Screen for Nausea/Vomitting: Yes Code Status: 01/24/17 19:46 Resuscitation Status: Active [RES] Routine Comment: Resuscitation Status: DNR-Comfort Care Consult Discharge Plan - Plan Referrals: Chandler Clark MD [Primary Care Provider] - (PALLI PATIENT ) Prescriptions: Metoclopramide [Reglan] 10 mg IV Q6HR #400 mg Dexamethasone [Decadron] 4 mg IV ONCE 10 Days #80 mg FentaNYL PATCH [Duragesic] 1 each TD Q72H #3 patch.td72 FentaNYL PATCH [Duragesic] 1 each TD Q72H #3 patch.td72 Hydromorphone HCl/Pf [Dilaudid 2 mg/ml Syringe] 2 mg IV Q2H PRN #36 syringe PRN Reason: cancer pain LORazepam [Ativan] 1 mg IV Q2H PRN #40 mg PRN Reason: anxiety n/v LORazepam [Ativan] 1 mg IV Q6H #40 mg Ondansetron [Zofran] 4 mg IV Q6H PRN #160 mg PRN Reason: n/v
[2017-02-01] MEDS: Lacri-Lube 3.5 GM TUBE BOTH EYES SCH (23:55)
[2017-02-02] MEDS: *HR* HYDROmorphone 2 MG/ML SYRINGE IVP PRN ×4 (03:11→21:27)
[2017-02-02] MEDS: Metoclopramide 10 MG/2 ML VIAL IVP SCH ×4 (03:11→20:59)
[2017-02-02] MEDS: Haloperidol Lactate 5 MG/ML VIAL IVP SCH ×5 (03:11→20:59)
[2017-02-02] MEDS: *HR* LORazepam 2 MG/ML VIAL IVP SCH ×3 (06:02→18:33)
[2017-02-02] MEDS: Dexamethasone 4 MG/ML VIAL IVP SCH ×2 (08:09→20:59)
[2017-02-02] MEDS: Lacri-Lube 3.5 GM TUBE BOTH EYES SCH ×2 (08:14→20:59)
--- NOTE | 2017-02-02 08:40 | Palliative Progress Note ---
Date of Encounter: 02/02/17 Time of Encounter: 08:30 - Assessment and plan (1) Abdominal pain Current Visit: No Status: Acute Assessment and plan: REquired additional breakthrough medication through the night. Restless this am. Will increase Fentanyl patch 200 mcg and monitor. Continue IV Hydromorphone for breakthrough Qualifiers: Abdominal location: generalized Qualified Code(s): R10.84 - Generalized abdominal pain (2) Pancreatic cancer metastasized to liver Current Visit: No Status: Suspected (3) Anxiety Current Visit: Yes Status: Acute Assessment and plan: Continue scheduled Lorazepam and monitor (4) Agitation Current Visit: Yes Status: Acute Assessment and plan: Continue with scheduled Haldol and adjust as necessary - Time Spent With Patient Total time spent is greater than 50% in coordination of care (as documented) at patient's floor/unit and/or counseling patient: - Subjective Interval history: Patient with eyes open - appears restless. Required more breakthrough medication during the night than previous. No family present. - Constitutional Vitals: Abnormal lab results Urine Color [place] (Yellow) A 01/28/17 15:45 Urine Clarity Cloudy (Clear) A 01/28/17 15:45 Ur Specific [place] 1.027 (1.010-1.025) H 01/28/17 15:45 Urine Protein 30 mg/dL (Neg-Trace) H 01/28/17 15:45 Urine Ketones Trace mg/dL (Negative) H 01/28/17 15:45 Urine Blood Large (Negative) H 01/28/17 15:45 Urine Bilirubin Large (Negative) H 01/28/17 15:45 Urine Urobilinogen 4.0 mg/dL (Normal) H 01/28/17 15:45 Ur Leukocyte Esterase Small (Negative) H 01/28/17 15:45 Urine Microscopic RBC 15-30 per hpf (0-3) H 01/28/17 15:45 Urine Microscopic WBC 5-15 per hpf (0-3) H 01/28/17 15:45 Ur Squamous Epith Cells Many per lpf (None-Few) H 01/28/17 15:45 Urine Bacteria Moderate per hpf (None-Few) H 01/28/17 15:45 Ur Culture Indicated? YES (NO) A 01/28/17 15:45 General appearance: Present: mild distress - Respiratory Respiratory exam: Present: decreased breath sounds, CTAB - Cardiovascular Cardiovascular exam: Present: +S1, +S2, tachycardia - GI/Abdominal GI/Abdominal exam: Present: diminished bowel sounds, distended, firm - Additional comments: scant amount brownish colored urine - Extremities Exam Additional comments: 3-4+ edema bilateral lower extremities - Neurological Exam Additional comments: Eyes open - no verbal response - does not follow commands - Skin Skin exam: Present: dry, warm Additional comments: jaundiced Palliative Quality Palliative Quality: Screen for Code Status: Yes, Screen for Goals of Care: Yes, Screen for Pain: Yes, If Pain Regimen Started, Initiate Bowel Regimen: Yes, Screen for Nausea/Vomitting: Yes Code Status: 01/24/17 19:46 Resuscitation Status: Active [RES] Routine Comment: Resuscitation Status: DNR-Comfort Care Consult Discharge Plan - Plan Referrals: Chandler Clark MD [Primary Care Provider] - (PALLI PATIENT ) Prescriptions: Metoclopramide [Reglan] 10 mg IV Q6HR #400 mg Dexamethasone [Decadron] 4 mg IV ONCE 10 Days #80 mg FentaNYL PATCH [Duragesic] 1 each TD Q72H #3 patch.td72 FentaNYL PATCH [Duragesic] 1 each TD Q72H #3 patch.td72 Hydromorphone HCl/Pf [Dilaudid 2 mg/ml Syringe] 2 mg IV Q2H PRN #36 syringe PRN Reason: cancer pain LORazepam [Ativan] 1 mg IV Q2H PRN #40 mg PRN Reason: anxiety n/v LORazepam [Ativan] 1 mg IV Q6H #40 mg Ondansetron [Zofran] 4 mg IV Q6H PRN #160 mg PRN Reason: n/v
[2017-02-02] MEDS: *HR* FentaNYL PATCH 100 MCG PATCH TD SCH (10:07)
[2017-02-02] MEDS: AMPICILLIN IVPB SCH ×2 (11:33→18:33)
[2017-02-02] MEDS: SODIUM CHLORIDE 0.9% IVPB SCH ×2 (11:33→18:33)
[2017-02-02] MEDS: *HR* LORazepam 2 MG/ML VIAL IVP PRN (15:03)
[2017-02-03] MEDS: AMPICILLIN IVPB SCH ×4 (00:14→17:46)
[2017-02-03] MEDS: Haloperidol Lactate 5 MG/ML VIAL IVP SCH ×6 (00:14→19:59)
[2017-02-03] MEDS: SODIUM CHLORIDE 0.9% IVPB SCH ×4 (00:14→17:46)
[2017-02-03] MEDS: *HR* LORazepam 2 MG/ML VIAL IVP SCH ×4 (00:16→17:47)
[2017-02-03] MEDS: Metoclopramide 10 MG/2 ML VIAL IVP SCH ×4 (04:09→19:58)
--- NOTE | 2017-02-03 08:55 | Palliative Progress Note ---
Date of Encounter: 02/03/17 Time of Encounter: 08:30 - Assessment and plan (1) Cancer associated pain Current Visit: No Status: Acute Assessment and plan: Patient with Fentanyl patche increased to 200 mcg yesterday. Dilaudid IVP PRN, patient had 3 doses of for BTP. (2) Ascites Current Visit: Yes Status: Acute Assessment and plan: Patient with cancer induced malignant ascites. Abdomen distended and firm. Pleurx catheter intact. Qualifiers: Ascites type: malignant Qualified Code(s): R18.0 - Malignant ascites (3) Goals of care, counseling/discussion Current Visit: No Status: Acute Assessment and plan: Patient is DNRCC - [facility] here for respite stay. (4) Anxiety Current Visit: Yes Status: Acute Assessment and plan: Patient received ativan IV for anxiety, 2 doses. (5) Pancreatic cancer metastasized to liver Current Visit: No Status: Suspected Assessment and plan: Patient currently enrolled in Hospice care - Time Spent With Patient Total time spent is greater than 50% in coordination of care (as documented) at patient's floor/unit and/or counseling patient: 25 - 35 minutes - Subjective Interval history: Patient resting with eyes closed. Unresponsive and appears comfortable. Fentanyl patch increased yesterday. No family at bedside. - Constitutional Vitals: Abnormal lab results Urine Color [place] (Yellow) A 01/28/17 15:45 Urine Clarity Cloudy (Clear) A 01/28/17 15:45 Ur Specific [place] 1.027 (1.010-1.025) H 01/28/17 15:45 Urine Protein 30 mg/dL (Neg-Trace) H 01/28/17 15:45 Urine Ketones Trace mg/dL (Negative) H 01/28/17 15:45 Urine Blood Large (Negative) H 01/28/17 15:45 Urine Bilirubin Large (Negative) H 01/28/17 15:45 Urine Urobilinogen 4.0 mg/dL (Normal) H 01/28/17 15:45 Ur Leukocyte Esterase Small (Negative) H 01/28/17 15:45 Urine Microscopic RBC 15-30 per hpf (0-3) H 01/28/17 15:45 Urine Microscopic WBC 5-15 per hpf (0-3) H 01/28/17 15:45 Ur Squamous Epith Cells Many per lpf (None-Few) H 01/28/17 15:45 Urine Bacteria Moderate per hpf (None-Few) H 01/28/17 15:45 Ur Culture Indicated? YES (NO) A 01/28/17 15:45 - Head Head exam: Present: atraumatic - Eye Eye exam: Present: PERRL - ENT ENT exam: Present: mucous membranes moist - Respiratory Respiratory exam: Present: decreased breath sounds - Expanded Respiratory Exam Location: decreased breath sounds: Left, Right, Lower - Cardiovascular Cardiovascular exam: Present: RRR, +S1, +S2 - GI/Abdominal GI/Abdominal exam: Present: distended (Pleurx cath CDI), normal bowel sounds, soft - Extremities Exam Extremities exam: Present: pedal edema (4+ bilateral pedal edema) - Back Exam Back exam: Present: tenderness - Neurological Exam Neurological exam: Present: altered - Psychiatric Psychiatric exam: Present: flat affect - Skin Skin exam: Present: pallor, warm Palliative Quality Palliative Quality: Screen for Code Status: Yes, Screen for Goals of Care: Yes, Screen for Pain: Yes, If Pain Regimen Started, Initiate Bowel Regimen: Yes, Screen for Nausea/Vomitting: Yes Code Status: 01/24/17 19:46 Resuscitation Status: Active [RES] Routine Comment: Resuscitation Status: DNR-Comfort Care Consult Discharge Plan - Plan Referrals: Chandler Clark MD [Primary Care Provider] - (PALLI PATIENT ) Prescriptions: Metoclopramide [Reglan] 10 mg IV Q6HR #400 mg Dexamethasone [Decadron] 4 mg IV ONCE 10 Days #80 mg FentaNYL PATCH [Duragesic] 1 each TD Q72H #3 patch.td72 FentaNYL PATCH [Duragesic] 1 each TD Q72H #3 patch.td72 Hydromorphone HCl/Pf [Dilaudid 2 mg/ml Syringe] 2 mg IV Q2H PRN #36 syringe PRN Reason: cancer pain LORazepam [Ativan] 1 mg IV Q2H PRN #40 mg PRN Reason: anxiety n/v LORazepam [Ativan] 1 mg IV Q6H #40 mg Ondansetron [Zofran] 4 mg IV Q6H PRN #160 mg PRN Reason: n/v
[2017-02-03] MEDS: Lacri-Lube 3.5 GM TUBE BOTH EYES SCH ×2 (09:34→19:59)
[2017-02-03] MEDS: Dexamethasone 4 MG/ML VIAL IVP SCH ×2 (09:35→19:58)
[2017-02-04] MEDS: Haloperidol Lactate 5 MG/ML VIAL IVP SCH ×6 (01:32→20:31)
[2017-02-04] MEDS: SODIUM CHLORIDE 0.9% IVPB SCH ×4 (01:32→18:24)
[2017-02-04] MEDS: *HR* LORazepam 2 MG/ML VIAL IVP SCH ×4 (01:32→18:25)
[2017-02-04] MEDS: AMPICILLIN IVPB SCH ×4 (01:32→18:24)
[2017-02-04] MEDS: Metoclopramide 10 MG/2 ML VIAL IVP SCH ×4 (03:21→20:31)
[2017-02-04] MEDS: Dexamethasone 4 MG/ML VIAL IVP SCH ×2 (09:56→20:31)
[2017-02-04] MEDS: Lacri-Lube 3.5 GM TUBE BOTH EYES SCH ×2 (09:57→20:33)
--- NOTE | 2017-02-04 17:48 | Palliative Progress Note ---
Date of Encounter: 02/04/17 Time of Encounter: 17:50 - Assessment and plan (1) Abdominal pain Current Visit: No Status: Acute Assessment and plan: Continue Fentanyl patch at 200mcg with Hydromorphone for breakthrough. Has required minimal breakthrough medications last 24 hours. Monitor Qualifiers: Abdominal location: generalized Qualified Code(s): R10.84 - Generalized abdominal pain (2) Pancreatic cancer metastasized to liver Current Visit: No Status: Suspected (3) Anxiety Current Visit: Yes Status: Acute Assessment and plan: Continue Lorazepam (4) Agitation Current Visit: Yes Status: Acute Assessment and plan: Continue scheduled Haldol (5) Goals of care, counseling/discussion Current Visit: No Status: Acute Assessment and plan: and daughter had questions regarding administration of Ampicillin. Discussed that urine culture was positive and could possibly be exacerbating agitation. However, does not appear that this has changed his status much. D/W to talk with Dr Goncalves in am regarding how long to continue. - Time Spent With Patient Total time spent is greater than 50% in coordination of care (as documented) at patient's floor/unit and/or counseling patient: 25 - 35 minutes - Subjective Interval history: Patient resting quietly with family at bedside. Appears comfortable. Has had some hypotension at times, and occasional apneic periods. - Constitutional Vitals: Abnormal lab results Urine Color [place] (Yellow) A 01/28/17 15:45 Urine Clarity Cloudy (Clear) A 01/28/17 15:45 Ur Specific [place] 1.027 (1.010-1.025) H 01/28/17 15:45 Urine Protein 30 mg/dL (Neg-Trace) H 01/28/17 15:45 Urine Ketones Trace mg/dL (Negative) H 01/28/17 15:45 Urine Blood Large (Negative) H 01/28/17 15:45 Urine Bilirubin Large (Negative) H 01/28/17 15:45 Urine Urobilinogen 4.0 mg/dL (Normal) H 01/28/17 15:45 Ur Leukocyte Esterase Small (Negative) H 01/28/17 15:45 Urine Microscopic RBC 15-30 per hpf (0-3) H 01/28/17 15:45 Urine Microscopic WBC 5-15 per hpf (0-3) H 01/28/17 15:45 Ur Squamous Epith Cells Many per lpf (None-Few) H 01/28/17 15:45 Urine Bacteria Moderate per hpf (None-Few) H 01/28/17 15:45 Ur Culture Indicated? YES (NO) A 01/28/17 15:45 General appearance: Present: no acute distress - Respiratory Respiratory exam: Present: decreased breath sounds, CTAB Additional comments: Resp shallow and irreg - Cardiovascular Cardiovascular exam: Present: +S1, +S2, tachycardia - GI/Abdominal GI/Abdominal exam: Present: diminished bowel sounds, soft - Additional comments: Granados patent with small amount dk debra urine - Extremities Exam Additional comments: 4+ edema bilaterally - Neurological Exam Additional comments: Minimally responsive to verbal and tactile stimuli - Skin Skin exam: Present: dry, warm Palliative Quality Palliative Quality: Screen for Code Status: Yes, Screen for Goals of Care: Yes, Screen for Pain: Yes, If Pain Regimen Started, Initiate Bowel Regimen: Yes, Screen for Nausea/Vomitting: Yes Code Status: 01/24/17 19:46 Resuscitation Status: Active [RES] Routine Comment: Resuscitation Status: DNR-[facility]fort Care Consult Discharge Plan - Plan Referrals: Chandler Clark MD [Primary Care Provider] - (PALLI PATIENT ) Prescriptions: Metoclopramide [Reglan] 10 mg IV Q6HR #400 mg Dexamethasone [Decadron] 4 mg IV ONCE 10 Days #80 mg FentaNYL PATCH [Duragesic] 1 each TD Q72H #3 patch.td72 FentaNYL PATCH [Duragesic] 1 each TD Q72H #3 patch.td72 Hydromorphone HCl/Pf [Dilaudid 2 mg/ml Syringe] 2 mg IV Q2H PRN #36 syringe PRN Reason: cancer pain LORazepam [Ativan] 1 mg IV Q2H PRN #40 mg PRN Reason: anxiety n/v LORazepam [Ativan] 1 mg IV Q6H #40 mg Ondansetron [Zofran] 4 mg IV Q6H PRN #160 mg PRN Reason: n/v
[2017-02-05] MEDS: *HR* LORazepam 2 MG/ML VIAL IVP SCH ×5 (01:04→23:58)
[2017-02-05] MEDS: Haloperidol Lactate 5 MG/ML VIAL IVP SCH ×7 (01:04→23:59)
[2017-02-05] MEDS: SODIUM CHLORIDE 0.9% IVPB SCH ×5 (01:56→23:57)
[2017-02-05] MEDS: AMPICILLIN IVPB SCH ×5 (01:56→23:57)
[2017-02-05] MEDS: Metoclopramide 10 MG/2 ML VIAL IVP SCH ×4 (03:16→20:56)
[2017-02-05] MEDS: Lacri-Lube 3.5 GM TUBE BOTH EYES SCH ×2 (09:02→20:57)
[2017-02-05] MEDS: Dexamethasone 4 MG/ML VIAL IVP SCH ×2 (09:02→20:57)
[2017-02-05] MEDS: *HR* FentaNYL PATCH 100 MCG PATCH TD SCH (09:03)
--- NOTE | 2017-02-05 10:04 | Palliative Progress Note ---
Date of Encounter: 02/05/17 Time of Encounter: 09:00 - Assessment and plan (1) Cancer associated pain Current Visit: No Status: Acute Assessment and plan: Patient with Fentanyl patch at 200 mcg. comfortable. Dilaudid IVP PRN, patient had no doses for BTP. (2) Ascites Current Visit: Yes Status: Acute Assessment and plan: Patient with cancer induced malignant ascites. Abdomen flat and soft. Last pleurx fluid removal on 01/29/17. Pleurx catheter intact. Qualifiers: Ascites type: malignant Qualified Code(s): R18.0 - Malignant ascites (3) Goals of care, counseling/discussion Current Visit: No Status: Acute Assessment and plan: Patient is DNC - [facility]. Inpatient hospice care for symptom management. (4) Anxiety Current Visit: Yes Status: Acute Assessment and plan: Patient received ativan IV for anxiety scheduled. (5) Pancreatic cancer metastasized to liver Current Visit: No Status: Suspected Assessment and plan: Patient currently enrolled in Hospice care - Time Spent With Patient Total time spent is greater than 50% in coordination of care (as documented) at patient's floor/unit and/or counseling patient: less than 15 minutes - Subjective Interval history: Patient resting with eyes closed. Unresponsive and appears comfortable. Mouth breathing. No family at bedside. - Constitutional Vitals: Abnormal lab results Urine Color [place] (Yellow) A 01/28/17 15:45 Urine Clarity Cloudy (Clear) A 01/28/17 15:45 Ur Specific [place] 1.027 (1.010-1.025) H 01/28/17 15:45 Urine Protein 30 mg/dL (Neg-Trace) H 01/28/17 15:45 Urine Ketones Trace mg/dL (Negative) H 01/28/17 15:45 Urine Blood Large (Negative) H 01/28/17 15:45 Urine Bilirubin Large (Negative) H 01/28/17 15:45 Urine Urobilinogen 4.0 mg/dL (Normal) H 01/28/17 15:45 Ur Leukocyte Esterase Small (Negative) H 01/28/17 15:45 Urine Microscopic RBC 15-30 per hpf (0-3) H 01/28/17 15:45 Urine Microscopic WBC 5-15 per hpf (0-3) H 01/28/17 15:45 Ur Squamous Epith Cells Many per lpf (None-Few) H 01/28/17 15:45 Urine Bacteria Moderate per hpf (None-Few) H 01/28/17 15:45 Ur Culture Indicated? YES (NO) A 01/28/17 15:45 - Head Head exam: Present: atraumatic - Eye Eye exam: Present: PERRL - ENT ENT exam: Present: mucous membranes dry, mucous membranes moist (chapstick applied) - Respiratory Respiratory exam: Present: CTAB - Cardiovascular Cardiovascular exam: Present: RRR, +S1, +S2 - GI/Abdominal GI/Abdominal exam: Present: diminished bowel sounds, soft (Pleurx intact) - Extremities Exam Extremities exam: Present: pedal edema (3+) - Neurological Exam Neurological exam: Present: altered - Psychiatric Psychiatric exam: Present: flat affect - Skin Skin exam: Present: warm Palliative Quality Palliative Quality: Screen for Code Status: Yes, Screen for Goals of Care: Yes, Screen for Pain: Yes, If Pain Regimen Started, Initiate Bowel Regimen: Yes, Screen for Nausea/Vomitting: Yes Code Status: 01/24/17 19:46 Resuscitation Status: Active [RES] Routine Comment: Resuscitation Status: DNR-Comfort Care Consult Discharge Plan - Plan Referrals: Chandler Clark MD [Primary Care Provider] - (PALLI PATIENT ) Prescriptions: Metoclopramide [Reglan] 10 mg IV Q6HR #400 mg Dexamethasone [Decadron] 4 mg IV ONCE 10 Days #80 mg FentaNYL PATCH [Duragesic] 1 each TD Q72H #3 patch.td72 FentaNYL PATCH [Duragesic] 1 each TD Q72H #3 patch.td72 Hydromorphone HCl/Pf [Dilaudid 2 mg/ml Syringe] 2 mg IV Q2H PRN #36 syringe PRN Reason: cancer pain LORazepam [Ativan] 1 mg IV Q2H PRN #40 mg PRN Reason: anxiety n/v LORazepam [Ativan] 1 mg IV Q6H #40 mg Ondansetron [Zofran] 4 mg IV Q6H PRN #160 mg PRN Reason: n/v
[2017-02-06] MEDS: Metoclopramide 10 MG/2 ML VIAL IVP SCH ×4 (03:14→20:16)
[2017-02-06] MEDS: Haloperidol Lactate 5 MG/ML VIAL IVP SCH ×5 (05:27→20:16)
[2017-02-06] MEDS: AMPICILLIN IVPB SCH ×3 (05:27→15:16)
[2017-02-06] MEDS: SODIUM CHLORIDE 0.9% IVPB SCH ×3 (05:27→15:16)
[2017-02-06] MEDS: *HR* LORazepam 2 MG/ML VIAL IVP SCH ×3 (09:54→18:02)
[2017-02-06] MEDS: Lacri-Lube 3.5 GM TUBE BOTH EYES SCH ×2 (09:55→20:16)
[2017-02-06] MEDS: Dexamethasone 4 MG/ML VIAL IVP SCH ×2 (09:57→20:16)
--- NOTE | 2017-02-06 22:09 | Internal Medicine Consult Note ---
Date of Encounter: 02/06/17 Time of Encounter: 17:07 - Assessment and Plan (1) Intractable nausea and vomiting Current Visit: No Status: Acute Assessment and plan: Zofran 4 mg Q4h prn, Reglan 10 mg Q6H scheduled. Qualifiers: Vomiting type: unspecified Qualified Code(s): R11.2 - Nausea with vomiting , unspecified (2) Cancer associated pain Current Visit: No Status: Acute Assessment and plan: Fentanyl patch at 200 mcg. comfortable. Dilaudid IVP PRN, patient had no doses for BTP. (3) Ascites Current Visit: Yes Status: Acute Assessment and plan: cancer induced malignant ascites. Abdomen flat and soft. Last pleurx fluid removal on 01/29/17. Pleurx catheter intact. Qualifiers: Ascites type: malignant Qualified Code(s): R18.0 - Malignant ascites (4) Hospice care Current Visit: No Status: Acute (5) Pancreatic cancer metastasized to liver Current Visit: No Status: Suspected Internal Medicine - CN: HPI - Data of Consult Requesting Physician: Santino Goncalves MD - Consult Narrative History of present illness: Mr. 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 We are consulted for inpatient hospice care coverage over the weekend. In brief, the patient is well established to the Palliative care service and is originally home with hospice. He developed intractable nausea and vomiting unrelieved by home medications. Patient was lethargic when he was admitted likely from substantial amount of episodes of emesis. He does have cancer-related abdominal ascites that has required paracentesis. Up to 6 L of fluid was removed at one point. Upon admission, emesis was controlled with Reglan, Zofran , and Decadron. Pain managed with Fentanyl patch and Dilaudid. He had a few episodes of agitation but did subside. Fentanyl patch dosage was increased to accommodate patient's pain level. Patient's urine did test positive for bullock- sensitive Enterococcus faecalis. He was started on ampicillin as treatment of infection can be significant in reducing agitation. Yesterday, patient's did inquire about discontinuing ampicillin. During my initial evaluation, patient was alone in room. He did not display any agitation, he was sleeping with mild discomfort. There were no acute events at that time. Past Med Surg Social Fam HX - Past Medical History Medical history: cancer, hypertension, other Psychiatric history: no psych history - Past Surgical History Surgical History: no surgical history - Social History Smoking Status: Never smoker Smokeless Tobacco Status: No Alcohol use: none Drug use: none - Family History Father Living Status: Hx Family Cardiac Disorders: Yes (ND at age 52) Mother Living Status: Hx Family Cardiac Disorders: No Hx Family Cancer: No Brother Hx Family Cancer: Yes (Lung cancer) Sister Hx Family Cancer: Yes (Lung cancer) ROS unobtainable: due to mental status Internal Medicine - CN: Meds Acetaminophen [Tylenol 650mg SUPP] 650 mg RC Q4H PRN 01/25/17 [History] Bisacodyl [Dulcolax] 10 mg RC DAILY PRN 01/25/17 [History] Dexamethasone 4 mg PO DAILY 01/25/17 [History] FentaNYL PATCH [Duragesic] 50 mcg TD Q72H 01/25/17 [History] FentaNYL PATCH [Duragesic] 100 mcg TD Q72H 01/25/17 [History] HYDROmorphone [Dilaudid] 4 mg PO Q1H PRN 01/25/17 [History] Haloperidol Oral Conc [Haldol] 2 - 4 mg PO Q4H PRN 01/25/17 [History] Hydromorphone HCl [Dilaudid] 5 mg PO Q1H 01/25/17 [History] LORazepam [Ativan] 1 mg PO QID 01/25/17 [History] LORazepam [Lorazepam Intensol] 1 mg PO Q2H PRN 01/25/17 [History] Mirtazapine [Remeron] 15 mg PO HS 01/25/17 [History] Oxygen 2 - 4 l NS AD 01/25/17 [History] Promethazine Syrup [Phenergan Syrup] 25 mg PO Q6H PRN 01/25/17 [History] Sennosides/Docusate Sodium [Senna Plus] 2 tab PO BID 01/25/17 [History] Dexamethasone [Decadron] 4 mg IV ONCE 10 Days #80 mg 01/27/17 [Rx] FentaNYL PATCH [Duragesic] 1 each TD Q72H #3 patch.td72 01/27/17 [Rx] FentaNYL PATCH [Duragesic] 1 each TD Q72H #3 patch.td72 01/27/17 [Rx] Hydromorphone HCl/Pf [Dilaudid 2 mg/ml Syringe] 2 mg IV Q2H PRN #36 syringe [Rx] LORazepam [Ativan] 1 mg IV Q2H PRN #40 mg 01/27/17 [Rx] LORazepam [Ativan] 1 mg IV Q6H #40 mg 01/27/17 [Rx] Metoclopramide [Reglan] 10 mg IV Q6HR #400 mg 01/27/17 [Rx] Ondansetron [Zofran] 4 mg IV Q6H PRN #160 mg 01/27/17 [Rx] 3 Allergy/AdvReac Type Severity Reaction Status Date / Time morphine Allergy Rash Verified 01/02/17 06:25 Internal Medicine - CN: Exam - Constitutional Vitals: Temp Pulse Resp BP Pulse Ox 101.0 F H 133 24 80/53 85 02/06/17 08:44 02/06/17 08:44 02/06/17 08:44 02/06/17 08:44 02/06/17 08:44 Exam: Gen: somnolent, sleeping - Head Head exam: Present: atraumatic - Eye Eye exam: Present: PERRL - ENT ENT exam: Present: mucous membranes dry, mucous membranes moist (chapstick applied) - Respiratory Respiratory exam: Present: CTAB - Cardiovascular Cardiovascular exam: Present: RRR, +S1, +S2 - GI/Abdominal GI/Abdominal exam: Present: diminished bowel sounds, soft (Pleurx intact) - Extremities Exam Extremities exam: Present: pedal edema (3+) - Neurological Exam Neurological exam: Present: altered - Psychiatric Psychiatric exam: Present: flat affect - Skin Skin exam: Present: warm Consult Discharge Plan - Plan Referrals: Chandler Clark MD [Primary Care Provider] - (PALLI PATIENT ) Prescriptions: Metoclopramide [Reglan] 10 mg IV Q6HR #400 mg Dexamethasone [Decadron] 4 mg IV ONCE 10 Days #80 mg FentaNYL PATCH [Duragesic] 1 each TD Q72H #3 patch.td72 FentaNYL PATCH [Duragesic] 1 each TD Q72H #3 patch.td72 Hydromorphone HCl/Pf [Dilaudid 2 mg/ml Syringe] 2 mg IV Q2H PRN #36 syringe PRN Reason: cancer pain LORazepam [Ativan] 1 mg IV Q2H PRN #40 mg PRN Reason: anxiety n/v LORazepam [Ativan] 1 mg IV Q6H #40 mg Ondansetron [Zofran] 4 mg IV Q6H PRN #160 mg PRN Reason: n/v
[2017-02-07] MEDS: *HR* LORazepam 2 MG/ML VIAL IVP SCH ×3 (00:39→12:22)
[2017-02-07] MEDS: Haloperidol Lactate 5 MG/ML VIAL IVP SCH ×4 (00:40→12:23)
[2017-02-07] MEDS: Metoclopramide 10 MG/2 ML VIAL IVP SCH ×2 (03:53→09:02)
[2017-02-07 07:07] VITALS: BP 72/45
[2017-02-07] MEDS: Dexamethasone 4 MG/ML VIAL IVP SCH (09:01)
[2017-02-07] MEDS: Lacri-Lube 3.5 GM TUBE BOTH EYES SCH (09:08)
[2017-02-07] MEDS ORDERED: Saliva Stimulant 100ml BOTTLE PO PRN (09:39)
--- NOTE | 2017-02-07 11:57 | Death Note ---
Pronouncement Note - Date and Time of Date of : 02/07/17 Time of : 11:42 - PCOD Preliminary cause of : Cardiorespiratory arrest - Summary Additional details: Called by nursing to pronounce . Patient was unresponsive to verbal and tactile stimuli. No spondtaneous breating. No heart sounds heard. Patient was without radial and cartotid puls. Corneal reflex was not present. Mr. Almas Jade was pronounced at 11:41 on Feb 07, 2017. Family was notified. - Additional Data Confirmation of : no pulse, no respirations, no heart sounds, pupils fixed and dilated Family: at bedside Attending physician: Santino Goncalves MD
== END 2017-02-07 11:41 | disposition expired | DRG 436 ==
LOC: 2ANU
PROVIDERS: ADMIT Family Medicine Hospice and Palliative Medicine; ATTEND Family Medicine Hospice and Palliative Medicine